=== PATIENT | male | born 1960 | race African-American/Black ===

== ENCOUNTER → 2016-10-03 | Outpatient (CLI) | payer OTHER ==
[2016-10-03 12:41] LABS: CH 29.5; CHCM 33.4; HCT 47.7 % (39.0-53.0); HDW 2.56; HGB 15.2 gm/dL (13.0-17.5); MCH 28.2 pg (25.0-35.0); MCHC 31.9 g/dL (31.0-37.0); MCV 88.7 fL (80.0-100.0); Mean Platelet Volume 7.5; RBC 5.38 m/uL (4.30-5.90); RDW 13.7 % (11.5-15.5); WBC 4.7 k/uL (3.8-10.6)
[2016-10-03 12:56] LABS: ALT 43 U/L (21-72); AST 28 U/L (17-59); Alkaline Phosphatase 94 U/L (38-126); Anion Gap 10 mmol/L; Blood Urea Nitrogen 18 mg/dL (9-20); Carbon Dioxide 25 mmol/L (22-30); Chloride 106 mmol/L (98-107); Cholesterol 235 mg/dL (<200); Glucose 97 mg/dL (74-99); HDL Cholesterol 58 mg/dL (40-60); Non-African American GFR(MDRD) >60 (>60 ml/min/1.73 sqM); Potassium 4.4 mmol/L (3.5-5.1); Sodium 141 mmol/L (137-145); Total Bilirubin 0.9 mg/dL (0.2-1.3); Total Protein 7.9 g/dL (6.3-8.2); Triglycerides 101 mg/dL (<150)
== END | disposition home or self-care (01) ==
LOC: LABWHC1 12:12
PROVIDERS: ATTEND Internal Medicine
DX: Z00.00 Encounter for general adult medical examination without abnormal findings (principal); E78.2 Mixed hyperlipidemia; E83.52 Hypercalcemia; J44.9 Chronic obstructive pulmonary disease, unspecified; N40.0 Benign prostatic hyperplasia without lower urinary tract symptoms
CPT/HCPCS: 36415; 80053; 80061; 84153; 84439; 84443; 85027

== ENCOUNTER → 2016-10-18 | Outpatient (CLI) | payer OTHER ==
--- NOTE | 2016-10-18 11:02 | XR ---
EXAMINATION TYPE: XR chest 2V DATE OF EXAM: 10/18/2016 COMPARISON: 06/18/2015 TECHNIQUE: PA and lateral views submitted. HISTORY: Chest pain FINDINGS: The lungs are clear and there is no pneumothorax, pleural effusion, or focal pneumonia. Arthropathy shoulders. Biapical no overt failure hypertrophic change of the spine. IMPRESSION: 1. No acute process.
== END | disposition home or self-care (01) ==
LOC: RADXRMAIN 10:39
PROVIDERS: ATTEND Internal Medicine
DX: Z00.00 Encounter for general adult medical examination without abnormal findings (principal); N40.0 Benign prostatic hyperplasia without lower urinary tract symptoms; E78.2 Mixed hyperlipidemia; J44.9 Chronic obstructive pulmonary disease, unspecified
CPT/HCPCS: 71020

== ENCOUNTER → 2017-09-20 | Outpatient (CLI) | payer OTHER ==
[2017-09-20 11:25] LABS: HCT 47.7 % (39.0-53.0); HGB 15.8 gm/dL (13.0-17.5); MCHC 33.2 g/dL (31.0-37.0); MCV 87.4 fL (80.0-100.0); Mean Platelet Volume 7.8; Platelet Count 235 k/uL (150-450); RBC 5.45 m/uL (4.30-5.90); RDW 13.8 % (11.5-15.5); WBC 4.5 k/uL (3.8-10.6)
[2017-09-20 11:46] LABS: Albumin 4.6 g/dL (3.5-5.0); Calcium 10.5 mg/dL (8.4-10.2); Potassium 4.4 mmol/L (3.5-5.1); Total Bilirubin 0.6 mg/dL (0.2-1.3); Total Protein 7.3 g/dL (6.3-8.2)
[2017-09-20 12:02] LABS: T4, Free (Free Thyroxine) 0.8 ng/dL (0.78-2.19)
== END | disposition home or self-care (01) ==
LOC: LABWHC1 10:48
PROVIDERS: ATTEND Internal Medicine
DX: I11.9 Hypertensive heart disease without heart failure (principal); J44.9 Chronic obstructive pulmonary disease, unspecified; E78.2 Mixed hyperlipidemia; E21.3 Hyperparathyroidism, unspecified; K21.0 Gastro-esophageal reflux disease with esophagitis; Z77.011 Contact with and (suspected) exposure to lead
CPT/HCPCS: 36415; 80053; 80061; 83655; 84439; 84443; 85027

== ENCOUNTER → 2017-09-20 | Outpatient (CLI) | payer OTHER | END | disposition home or self-care (01) | LOC: LABWHC1 10:30 | PROVIDERS: ATTEND Internal Medicine | DX: E78.2 Mixed hyperlipidemia (principal); E21.3 Hyperparathyroidism, unspecified; K26.0 Acute duodenal ulcer with hemorrhage; I11.9 Hypertensive heart disease without heart failure; J44.9 Chronic obstructive pulmonary disease, unspecified | CPT/HCPCS: 36415; 82272 ==

== ENCOUNTER 2018-02-05 09:22 | Day surgery (SDC) | payer OTHER ==
[2018-02-01 11:26] VITALS: BMI 31.5
--- NOTE | 2018-02-04 12:00 | P.GSHP ---
History of Present Illness H&P Date: 02/05/18 CHIEF COMPLAINT: Colon screen HISTORY OF PRESENT ILLNESS: The patient is a 57-year-old male who presents for colon screen. Lower endoscopy was offered for further evaluation and management. PAST MEDICAL HISTORY: Please see list. PAST SURGICAL HISTORY: Please see list. MEDICATIONS: Please see list. ALLERGIES: Please see list. SOCIAL HISTORY: No illicit drug use FAMILY HISTORY: No reports of Crohn disease or ulcerative colitis. REVIEW OF ORGAN SYSTEMS: CONSTITUTIONAL: No reports of fevers or chills. PHYSICAL EXAM: VITAL SIGNS: Stable GENERAL: Well-developed pleasant in no acute distress. HEENT: No scleral icterus. Extraocular movements grossly intact. Moist buccal mucosa. NECK: Supple without lymphadenopathy. CHEST: Unlabored respirations. Equal bilateral excursions. CARDIOVASCULAR: Regular rate and rhythm. Distal 2+ pulses. ABDOMEN: Soft, nontender, nondistended. MUSCULOSKELETAL: No clubbing, cyanosis, or edema. ASSESSMENT: 1. Colon screen. PLAN: 1. Recommend proceeding with a lower endoscopy Past Medical History Past Medical History: Hyperlipidemia, Hypertension Additional Past Medical History / Comment(s): past hx colon polyps, back pain History of Any Multi-Drug Resistant Organisms: None Reported Past Surgical History: Heart Catheterization Additional Past Surgical History / Comment(s): surg. for perforated ulcer Past Anesthesia/Blood Transfusion Reactions: No Reported Reaction Smoking Status: Current some day smoker - Past Family History Mother Family Medical History: No Reported History Brother(s) Family Medical History: No Reported History Medications and Allergies Home Medications Medication Instructions Recorded Confirmed Type Aspirin 81 mg PO DAILY 09/25/13 02/01/18 History QUEtiapine FUMARATE [SEROquel] 300 mg PO HS 09/30/13 02/01/18 History ALPRAZolam [Xanax] 1 mg PO Q8HR 06/18/15 02/01/18 History Enalapril [Vasotec] 20 mg PO QAM 06/18/15 02/01/18 History Simvastatin [Zocor] 20 mg PO HS 06/18/15 02/01/18 History Atenolol [Tenormin] 12.5 mg PO QAM 02/01/18 02/01/18 History Allergies Allergy/AdvReac Type Severity Reaction Status Date / Time peanut Allergy Rash/Hives Verified 02/01/18 11:20 shellfish derived Allergy Rash/Hives Verified 02/01/18 11:20
[~2018-02-05 09:22] MED LIST: LACTATED RINGERS 1,000 ML IV SCH
[2018-02-05 09:39] VITALS: TEMP 98.2
[2018-02-05] MEDS ORDERED: LIDOCAINE 1% 20 ML VIAL (10MG/ML) FOR IV START INTRADERMA ONE (09:49)
[2018-02-05] MEDS ORDERED: LIDOCAINE 1% INJ 10MG/ML (20 ML MDV) ONE (10:14)
[2018-02-05] MEDS ORDERED: PROPOFOL 10 MG/ML 20 ML VIAL IV ONE (10:14)
--- NOTE | 2018-02-05 10:56 | P.PCN ---
Date of Procedure: 02/05/18 Description of Procedure: PREOPERATIVE DIAGNOSIS: History of colon polyps POSTOPERATIVE DIAGNOSIS: Colonoscopy screening, first Personal history of colon polyps. Multiple tubular adenomas throughout the colon. Sigmoid diverticulitis Sigmoid colon polyps OPERATION: Colonoscopy to the ileocecal valve and appendiceal orifice. Colonoscopy with multiple hot snare polypectomies SURGEON: Myrna Clinton MD. ANESTHESIA: MAC. INDICATIONS: The patient is a 57-year-old male with history of multiple colon polyps. Last colonoscopy 4 years ago. Benefits and risks were described and informed consent was obtained. DESCRIPTION OF PROCEDURE: The patient had undergone Gatorade, MiraLAX and Dulcolax prep. He had been brought into the operating room and laid in the left lateral decubitus position. After adequate intravenous sedation, the rectum was examined with 2% lidocaine jelly. No external hemorrhoids were encountered. The prostate was smooth and without abnormality. The rectal tone was within normal limits. No lesions were palpated in the rectal vault. An Olympus colonoscope was advanced until the ileocecal valve and appendiceal orifice were clearly viewed. The prep was fair with visualization of the mucosal folds. The scope was removed with visualization of each mucosal fold. Highly redundant sigmoid colon was found. Scattered diverticulosis with recent diverticulitis was encountered. Multiple colonic polyps were found of the sigmoid colon. Focal colitis was found of the sigmoid colon. Retroflexion of the scope demonstrated grade 1 internal hemorrhoids without active bleeding or inflammation. The colon was desufflated. The patient had tolerated the procedure well. Withdrawal time was over 6 minutes. FINDINGS: Internal hemorrhoids, grade 1 No external hemorrhoids. No arteriovenous malformations. Active sigmoid diverticulitis, mild Multiple tubular adenoma sigmoid colon with snare polypectomy, 3 of 4 mm size. Pandiverticulosis RECOMMENDATIONS: Given severity of tubular adenomas, recommend repeat colonoscopy 1 year, 2019 Plan - Discharge Summary New Discharge Prescriptions: New metroNIDAZOLE [Flagyl] 500 mg PO BID #14 tab No Action Aspirin 81 mg PO DAILY QUEtiapine FUMARATE [SEROquel] 300 mg PO HS Simvastatin [Zocor] 20 mg PO HS ALPRAZolam [Xanax] 1 mg PO Q8HR Enalapril [Vasotec] 20 mg PO QAM Atenolol [Tenormin] 12.5 mg PO QAM Discharge Medication List Aspirin 81 mg PO DAILY 09/25/13 [History] QUEtiapine FUMARATE [SEROquel] 300 mg PO HS 09/30/13 [History] ALPRAZolam [Xanax] 1 mg PO Q8HR 06/18/15 [History] Enalapril [Vasotec] 20 mg PO QAM 06/18/15 [History] Simvastatin [Zocor] 20 mg PO HS 06/18/15 [History] Atenolol [Tenormin] 12.5 mg PO QAM 02/01/18 [History] metroNIDAZOLE [Flagyl] 500 mg PO BID #14 tab 02/05/18 [Rx] Follow up Appointment(s)/Referral(s): Myrna Clinton MD [STAFF PHYSICIAN] - 02/27/18 Patient Instructions/Handouts: Colorectal Polyps (DC), Diverticulitis (DC), Diverticulitis Diet (DC) Discharge Disposition: HOME SELF-CARE
[2018-02-05 11:31] VITALS: BP 156/84; PULSE 82; RESP 20
== END 2018-02-05 11:49 | disposition home or self-care (01) ==
LOC: ORWHC2ENDO 09:22
PROVIDERS: ATTEND Surgery Plastic and Reconstructive Surgery
DX: Z12.11 Encounter for screening for malignant neoplasm of colon (principal); K63.5 Polyp of colon; K57.30 Diverticulosis of large intestine without perforation or abscess without bleeding; K57.32 Diverticulitis of large intestine without perforation or abscess without bleeding; Q43.8 Other specified congenital malformations of intestine; K52.9 Noninfective gastroenteritis and colitis, unspecified; K64.0 First degree hemorrhoids; Z86.010 Personal history of colon polyps; E78.5 Hyperlipidemia, unspecified; I10 Essential (primary) hypertension; M54.9 Dorsalgia, unspecified; F41.9 Anxiety disorder, unspecified; F32.9 Major depressive disorder, single episode, unspecified; F17.210 Nicotine dependence, cigarettes, uncomplicated; Z79.82 Long term (current) use of aspirin; Z79.899 Other long term (current) drug therapy; Z91.010 Allergy to peanuts; Z91.013 Allergy to seafood
CPT/HCPCS: 88305; 45385; J2001; J2704

== ENCOUNTER → 2018-06-26 | Outpatient (CLI) | payer OTHER ==
--- NOTE | 2018-06-27 07:29 | XR ---
EXAMINATION TYPE: XR Hip Complete LT DATE OF EXAM: 06/26/2018 COMPARISON: NONE HISTORY: Pain TECHNIQUE: 2 views submitted FINDINGS: Severe narrowing of the joint space. There is also mixed lucency and sclerosis involving the femoral head. Be associated with osteonecrosis. Correlate clinically. IMPRESSION: 1. Severe arthropathy. Findings could been the basis of osteonecrosis MRI recommended.
== END | disposition home or self-care (01) ==
LOC: RADXRMAIN 16:07
PROVIDERS: ATTEND Internal Medicine
DX: M12.852 Other specific arthropathies, not elsewhere classified, left hip (principal)
CPT/HCPCS: 73502

== ENCOUNTER → 2018-07-03 | Outpatient (CLI) | payer OTHER ==
[2018-07-03 17:03] LABS: HGB 15.5 gm/dL (13.0-17.5); MCH 29.2 pg (25.0-35.0); MCHC 32.3 g/dL (31.0-37.0); MCV 90.3 fL (80.0-100.0); Mean Platelet Volume 7.8; Platelet Count 242 k/uL (150-450); RBC 5.31 m/uL (4.30-5.90); RDW 13.5 % (11.5-15.5); WBC 5.2 k/uL (3.8-10.6)
[2018-07-04 01:25] LABS: T4, Free (Free Thyroxine) 0.9 ng/dL (0.80-1.80)
[2018-07-04 01:58] LABS: Albumin/Globulin Ratio 2.17 (1.60-3.17); Anion Gap 7.2 mmol/L (4.00-12.00); Calcium 10.7 mg/dL (8.7-10.3); Carbon Dioxide 25.8 mmol/L (21.6-31.8); Globulin 2.3 g/dL (1.6-3.3); Potassium 4.7 mmol/L (3.5-5.5); Total Bilirubin 0.6 mg/dL (0.3-1.2); Total Protein 7.3 g/dL (6.2-8.2)
[2018-07-04 01:59] LABS: LDL Cholesterol,Calculated 125.8 mg/dL (0.0-131.0); VLDL Calculation 20.2 mg/dL (5.00-40.00)
== END | disposition home or self-care (01) ==
LOC: LABWHC1 16:16
PROVIDERS: ATTEND Internal Medicine
DX: E78.2 Mixed hyperlipidemia (principal); I11.9 Hypertensive heart disease without heart failure; E21.3 Hyperparathyroidism, unspecified; N40.0 Benign prostatic hyperplasia without lower urinary tract symptoms
CPT/HCPCS: 36415; 80053; 80061; 83970; 84153; 84439; 84443; 85027

== ENCOUNTER → 2018-07-09 | Outpatient (CLI) | payer OTHER ==
--- NOTE | 2018-07-09 19:56 | MR ---
EXAMINATION TYPE: MR hip LT wo con DATE OF EXAM: 07/09/2018 COMPARISON: Left hip x-ray June 26, 2018. HISTORY: severe arthropathy, osteonecrosis per order. Standard multiplanar, multisequence MRI departmental protocol Multiplanar, multisequence images of the pelvis focusing on left hip were acquired. FINDINGS: As suspected on x-ray there is fragmentation through the anterior superior aspect of the fe moral head with minimal step-off but 2.5 cm fracture fragment identified transversely coronal image 7 . There is heterogeneity with edema extending through the femoral head and neck as well as in the parth tabulum with subchondral cystic change superiorly. Moderate to advanced axial joint space narrowing i s seen. There is moderate axial joint space loss in the right hip. Avascular necrosis is also present with se rpiginous low T1 signal involving the superior aspect of the femoral head. No ossific fragmentation o r collapse is seen. Tiny symmetric bilateral hip joint effusions are seen. Muscle bulk bilateral thighs is symmetric and felt within normal limits. No suspicious groin adenopathy or hernia is seen. Visualized portion of bladder is within normal limits. Prostate gland is unremarkable. No suspicious bowel dilatation is seen. No concerning pelvic fluid collection is noted. IMPRESSION: Confirmation of advanced left hip arthropathy and avascular necrosis with early ossific collapse iden tified. Avascular necrosis and degenerative change also affects the right hip to a lesser degree.
== END | disposition home or self-care (01) ==
LOC: RADMRIMAIN 17:41
PROVIDERS: ATTEND Internal Medicine
DX: M16.12 Unilateral primary osteoarthritis, left hip (principal); M87.88 Other osteonecrosis, other site

== ENCOUNTER → 2018-08-29 | Outpatient (CLI) | payer OTHER | LOC: LABWHC1 17:25 | PROVIDERS: ATTEND Otolaryngology Sleep Medicine | DX: Z01.812 Encounter for preprocedural laboratory examination (principal) | CPT/HCPCS: 36415; 82565; 84520 ==

== ENCOUNTER → 2018-09-04 | Outpatient (CLI) | payer OTHER ==
--- NOTE | 2018-09-05 08:31 | CT ---
EXAMINATION TYPE: CT soft tissue neck wo/w con DATE OF EXAM: 09/04/2018 COMPARISON: 03/15/2012 HISTORY: Right side lump under tongue CT DLP: 1117 mGycm CONTRAST: CT scan of the neck is performed without and with IV Contrast, patient injected with 100 mL of Isovue 300. Contrast enhanced CT of the neck was performed from the skull base through the lung apices. AIRWAY: The supraglottic, glottic, and subglottic portions of the airway appear patent and free of mass. SALIVARY GLANDS: At the proximal right sided Brooklyn's duct there is a calcification noted measuring 1.5 cm x 0.7 cm x 1.3 cm. This is compatible with sialolithiasis. There is mild fullness of the right -sided submandibular gland relative to its left-sided counterpart. No definite active inflammatory ch tray identified. Parotid lobes are symmetric bilaterally. No intraglandular lesions seen. THYROID GLAND: No nodules or masses seen. LYMPH NODES: No adenopathy seen greater than 1cm. LUNG APICES: No nodule or mass is seen. OTHER: Vascular structures are patent. No significant degenerative change of the cervical spine. N o abscess seen. Stable midline maxillary dentigerous cyst. IMPRESSION: 1.At the proximal right sided Newton's duct there is a calcification noted measuring 1.5 cm x 0.7 cm x 1.3 cm. This is compatible with sialolithiasis.
== END | disposition home or self-care (01) ==
LOC: RADCTMAIN 17:17
PROVIDERS: ATTEND Otolaryngology Plastic Surgery within the Head & Neck
DX: K11.8 Other diseases of salivary glands (principal); K11.5 Sialolithiasis
CPT/HCPCS: 70492; Q9967

== ENCOUNTER → 2018-09-13 | Outpatient (CLI) | payer OTHER ==
--- NOTE | 2018-09-13 13:04 | XR ---
EXAMINATION TYPE: XR chest 2V DATE OF EXAM: 09/13/2018 COMPARISON: 10/18/2016 TECHNIQUE: PA and lateral views submitted. HISTORY: Preop chest x-ray FINDINGS: The lungs are clear and there is no pneumothorax, pleural effusion, or focal pneumonia. Arthropathy of the shoulders. Biapical pleural thickening. No overt failure. Hypertrophic and degenerative reyes e of the spine. IMPRESSION: 1. No acute process.
[2018-09-13 13:05] LABS: HCT 47.1 % (39.0-53.0); HGB 15.4 gm/dL (13.0-17.5); MCH 28.9 pg (25.0-35.0); MCHC 32.7 g/dL (31.0-37.0); MCV 88.5 fL (80.0-100.0); Mean Platelet Volume 7.8; Platelet Count 251 k/uL (150-450); RBC 5.32 m/uL (4.30-5.90); RDW 14.4 % (11.5-15.5); WBC 5.1 k/uL (3.8-10.6)
[2018-09-13 13:07] LABS: Partial Thromboplastin Time 26.2 sec (22.0-30.0); Prothrombin Time 10.9 sec (9.0-12.0)
[2018-09-13 13:20] LABS: Potassium 4.8 mmol/L (3.5-5.1)
[2018-09-13 13:29] LABS: Appearance,Urine Clear (Clear); Bilirubin,Urine Negative (Negative); Blood,Urine Negative (Negative); Color,Urine Yellow; Glucose,Urine (UA) Negative (Negative); Ketones,Urine Negative (Negative); Leukocyte Esterase,Urine Negative (Negative); Nitrite,Urine Negative (Negative); PH, Urine 6.5 (5.0-8.0); Protein,Urine Trace (Negative); Urobilinogen,Urine <2.0 mg/dL (<2.0)
== END | disposition home or self-care (01) ==
LOC: LABWHC1 11:48
PROVIDERS: ATTEND Internal Medicine
DX: Z01.818 Encounter for other preprocedural examination (principal); I11.9 Hypertensive heart disease without heart failure; J44.9 Chronic obstructive pulmonary disease, unspecified; D68.9 Coagulation defect, unspecified; Z01.812 Encounter for preprocedural laboratory examination
CPT/HCPCS: 36415; 71046; 80048; 81003; 85027; 85610; 85730; 93005

== ENCOUNTER → 2018-09-20 | Outpatient (CLI) | payer OTHER | END | disposition home or self-care (01) | LOC: LABPAT 14:07 | PROVIDERS: ATTEND Orthopaedic Surgery | DX: Z01.812 Encounter for preprocedural laboratory examination (principal); M16.12 Unilateral primary osteoarthritis, left hip | CPT/HCPCS: 87070 ==

== ENCOUNTER 2018-10-30 11:00 | Inpatient (IN) | payer OTHER ==
[2019-01-01 09:15] VITALS: BMI 31.1
[2019-01-08] MEDS ORDERED: TRANEXAMIC ACID 1,000 MG in SODIUM CHLORIDE 0.9% 100 ML IVPB ONE ×4 (05:00)
[2019-01-08] MEDS ORDERED: ACETAMINOPHEN TAB 500 MG TAB PO ONE (05:00)
[2019-01-08] MEDS ORDERED: MELOXICAM 7.5 MG TAB PO ONE (05:00)
[2019-01-08] MEDS ORDERED: LACTATED RINGERS 1,000 ML IV SCH (05:39)
[2019-01-08] MEDS ORDERED: HYDROmorphone 0.5 MG/0.5 ML SYRINGE IVP PRN ×3 (05:39→09:07)
[2019-01-08] MEDS ORDERED: LIDOCAINE 1% 20 ML VIAL (10MG/ML) FOR IV START INTRADERMA PRN (05:39)
[2019-01-08] MEDS ORDERED: ONDANSETRON 4 MG/2 ML VIAL IVP ONE (05:39)
[2019-01-08] MEDS ORDERED: ROPIVACAINE 246.25 MG, EPINEPHrine 0.5 MG, KETOROLAC 30 MG, cloNIDine HCL/PF 80 MCG, WA... MISCELLANE ONE ×5 (06:02)
[2019-01-08] MEDS ORDERED: DEXAMETHASONE SOD PHOSPHATE 10 MG/ML 1 ML VIAL IV ONE (08:03)
[2019-01-08] MEDS ORDERED: PROPOFOL 10 MG/ML 20 ML VIAL IV ONE (08:34)
[2019-01-08] MEDS ORDERED: SODIUM CHLORIDE 0.9% IRRIG 1,000 ML BTL IRRIGATION ONE (08:34)
[2019-01-08] MEDS ORDERED: MIDAZOLAM 2 MG/2 ML VIAL ONE (08:34)
[2019-01-08] MEDS ORDERED: HEPARIN SODIUM,PORCINE 10,000 UNIT/ML 1 ML VIAL ONE (08:34)
[2019-01-08] MEDS ORDERED: ePHEDrine SULFATE/0.9% NACL/PF 50 MG/5 ML SYRINGE IV ONE (08:34)
[2019-01-08] MEDS ORDERED: SODIUM CHLORIDE 0.9% 100 ML BAG ONE (08:34)
[2019-01-08] MEDS ORDERED: TRANEXAMIC ACID 1,000 MG/10 ML VIAL ONE (08:34)
[2019-01-08] MEDS ORDERED: PHENYLEPHRINE-0.9% NACL SYG 1 MG/10 ML SYRINGE ONE (08:34)
[2019-01-08] MEDS ORDERED: hydrOXYzine PAMOATE 25 MG CAP PO PRN (09:07)
[2019-01-08] MEDS ORDERED: ONDANSETRON 4 MG/2 ML VIAL IVP PRN (09:07)
[2019-01-08] MEDS ORDERED: NALOXONE 0.4 MG/ML 1 ML VIAL IV PRN (09:07)
[2019-01-08] MEDS ORDERED: HYDROmorphone 1 MG/ML 1 ML SYRINGE IVP PRN (09:07)
[2019-01-08] MEDS ORDERED: HYDROcodone/APAP 5-325MG 1 EACH TAB PO PRN (09:07)
[2019-01-08] MEDS ORDERED: MAGNESIUM HYDROXIDE 2,400 MG/10 ML CUP PO PRN (09:07)
[2019-01-08] MEDS ORDERED: ceFAZolin 3,000 MG in SODIUM CHLORIDE 0.9% IRRIGATIO 3,000 ML IRRIGATION ONE (09:26)
[2019-01-08] MEDS ORDERED: LACTATED RINGERS 1,000 ML IV ONE ×2 (09:30)
--- NOTE | 2019-01-08 10:19 | P.OP ---
Date of Procedure: 01/08/19 Preoperative Diagnosis: Severe osteoarthritis left hip Postoperative Diagnosis: Severe osteoarthritis left hip Procedure(s) Performed: Left total hip arthroplasty with a direct anterior approach Implants: Burrell and nephew Polarstem size 3 standard Burrell [employer] Nephew R3, 3 hole acetabular shell, 52 mm Burrell [employer] Nephew reflection 6.5 mm cancellus screw, 20 mm 2 Burrell [employer] Nephew R3, XLPE 20 acetabular liner Burrell [employer] Nephew Oxinium femoral head 36 m, +0 All components were press-fit. The articulation is Oxinium on polyethylene. Anesthesia: spinal Surgeon: Cole Nance Mail Service Coordinator #1: Rula Johnson Estimated Blood Loss (ml): 150 Pathology: other (Femoral head) Condition: stable Disposition: PACU Indications for Procedure: After failure of conservative treatment we discussed the surgical and nonsurgical treatment options at length. Patient wishes to proceed with a total hip arthroplasty with a direct anterior approach. Complications specific to this procedure were discussed at length, including but not limited to infection, leg length discrepancy, dislocation, and nerve injury. Patient is aware of all these complications and informed consent was obtained Operative Findings: The operative findings are consistent with severe osteoarthritis of the left hip Description of Procedure: Patient was seen and evaluated in the preoperative area, consent was reviewed, and the surgical site was marked with a skin marker. Patient was then brought to the operating room and given prophylactic antibiotics intravenously. 1 g of Tranexamic acid was also given. A spinal anesthetic was administered by the anesthesia department. The patient was then placed on the [place] table with the bony prominences well-padded. The hip area was then prepped and draped in usual sterile fashion. A universal timeout was then performed, which confirmed the patient's name, surgical site, ALLERGIES, and procedure being performed. Next the incision site was located at 1 cm distal and 1 cm lateral to the anterior superior iliac spine. The skin and subcutaneous tissues were sharply incised. Incision was carefully dissected down to the fascia overlying the tensor fascia david muscle. This fascia was then incised in line with the incision. Next, using blunt finger dissection, the tensor fascia david muscle was dissected off its investing fascia. The muscle was then carefully retracted laterally with a cobra retractor over the lateral neck of the femur. Next, the circumflex vessels were identified and cauterized using the AquaMantis device. The anterior hip capsule was then exposed. The capsule was then opened and an inverted T fashion. Cobra retractors were then placed intracapsularly. The proximal femur was then visualized. The femoral neck was then osteotomized appropriate level above the lesser trochanter. Small amount of traction was placed with the [place] table. A small wedge of bone was then removed from the remaining femoral head. Next, using a corkscrew femoral head was easily removed from the acetabulum. On gross visual inspection, the femoral head had complete loss of articular cartilage in multiple periarticular osteophytes. Attention was then turned to the acetabulum. the acetabulum was exposed and any remaining labrum was excised. Sequential reaming of the acetabulum was performed using fluoroscopic guidance. When the appropriate size was reached, a trial was then placed. The position and fit of the trial was checked with fluoroscopy. The trial was then removed. Then, using fluoroscopic guidance, the final implant was impacted at 20 of anteversion and 40 of abduction, and fully seated in the acetabulum. 2 screws were then placed in the acetabulum. Again fluoroscopy was used to check position of the screws. Next, the liner was then impacted, with a 20 elevated liner located in the anterior superior quadrant. Component locking was confirmed. Attention was then directed to the femur. With the aid of the [place] table, the femur was externally rotated to approximately 130, extended, and abducted under the opposite leg. A side hook was then placed under the proximal femur, and the side hook elevator was used to elevate the proximal femur. Retractors were then placed. A capsular release was performed, as well as a release of the conjoined tendon, which afforded excellent visualization of the proximal femur. Next, a box osteotome was used to lateralize the proximal femur. A hand weaver was then used to locate the femoral canal. Sequential broaching was then performed with appropriate size which afforded excellent fixation in the proximal femur. A trial was then placed with appropriate head and neck, and the hip was gently reduced with the aid of the [place] table. Fluoroscopy was then used to check position of the components, as well as to ensure equal leg lengths. The hip was then gently dislocated and the trials were then removed. Final implants were then impacted and the hip was again reduced. Final fluoroscopic x-rays confirmed that the components were in anatomic position, as well as equal leg lengths. The hip was also taken through range of motion, and found to be s table. The hip was then copiously irrigated with antibiotic solution with pulsatile lavage. The hip was then irrigated with Irrisept solution. The soft tissues were then injected with a ropivacaine solution, which consisted of 246.25 mg of ropivacaine, 0.5 mg of epinephrine, 30 mg of Toradol, 80 g of clonidine, and 48.45 mL of sterile water, for a total of 100 mL of fluid injected. A second d ose of 1 g of Tranexamic acid was also given. the fascia was then closed with 2-0 strata fix suture. The subcutaneous tissue was closed with 3-0 Vicryl. The subcuticular tissue was closed with 3-0 strata fix suture. The skin was then closed with Dermabond glue and a sterile silver dressing. The patient was then transferred to the recovery room in stable condition. The casino assistant manager ADRIEL Burnette was required due to the complexity of surgery, and the need for skilled surgical elastic knitter hand frame for positioning, draping, exposure, retraction, and closure of the wound.
--- NOTE | 2019-01-08 10:46 | FL ---
Fluoroscopy HISTORY: Anterior hip displacement 50 seconds fluoroscopy time supplied to the referring clinician. 2 intraoperative C-arm images docum ent the procedure. See dictated report from orthopedic surgery.
--- NOTE | 2019-01-08 10:49 | XR ---
Limited left hip HISTORY: Anterior hip replacement 2 intraoperative C-arm images document the procedure.
--- NOTE | 2019-01-08 11:03 | XR ---
EXAMINATION TYPE: XR Hip Limited LT DATE OF EXAM: 01/08/2019 CLINICAL HISTORY: Left hip pain and osteoarthritis. TECHNIQUE: Single AP portable view of left hip is obtained immediately postoperatively. COMPARISON: None. FINDINGS: Metallic hardware from left hip arthroplasty is seen and appears satisfactory in alignment and position. There is evidence of recent surgery with subcutaneous gas noted laterally. IMPRESSION: Metallic hardware from left hip arthroplasty is satisfactory in position.
[2019-01-08] MEDS: HYDROcodone/APAP 5-325MG 1 EACH TAB PO PRN ×2 (14:36→20:56)
[2019-01-08] MEDS: DIAZEPAM 5 MG TAB PO PRN (15:49)
[2019-01-08] MEDS ORDERED: ENALAPRILAT 1.25 MG/ML 1 ML VIAL IVP PRN (17:42)
[2019-01-08] MEDS: SODIUM CHLORIDE 0.9% 1,000 ML IV SCH ×2 (17:43→22:09)
--- NOTE | 2019-01-08 18:14 | P.CONS ---
History of Present Illness - Reason for Consult Consult date: 01/08/19 Requesting physician: Scott Morin (Requested by orthopedic surgeon Cole osorio) - Chief Complaint Left hip osteoarthritis elective surgery. - History of Present Illness Consultation for medical management. Patient with underlying history: Hyperlipidemia. Hypertension with hypertensive heart disease. Hypercholesterolemia. Advanced osteoarthritis of the left hip. Hypercalcemia. Sinus tachycardia. History of general anxiety disorder. Mr. Yohannes Johnston, -[place] male age of [age] years old, presented with history of severe advanced degenerative osteoarthritis of the left hip underwent left hip arthroplasty elective by Dr. Cole kaufman, on 01/08/2019. Past medical history: At the proximal right sided whartons on 09/04/2018, was 1.5 cm multiplied by 0.7 cm multiplied by 1.3 cm with the compatible with duct calcification Sialolithiasis which is operated upon by Trey Woods M.D. Probably associated with hyper hypercalcemia. Patient has history on 07/03/2018 was laboratory indicating that his calcium 10.7 and albumin is 5 and globulin was 2.3 normal liver enzyme normal alkaline phosphatase with the underlying normal PSA his parathyroid hormone was normal 59.7. Patient also has underlying colonoscopy by Dr. West for 1 and that was done on 02/05/2018 with the underlying impression of internal hemorrhoids grade 1 active sigmoid diverticulitis mild multiple tubular adenomas of the sigmoid colon and she is recommended patient to have recurrent colonoscopy in one year. Patient was under care of Dr. Denis Fairchild and recently become under my care. Head level in the blood was 4.3 L on 5 and he had also nuclear medicine for parathyroid with the SPECT scan was ordered by Dr. Fairchild in 12/24/2015 and that was normal and no suspicious of enlarged thyroid nodule in 11/04/2015. Patient seen for his back complain by Dr. Ramon Jorge who is a neurologist with the underlying back pain, cervicalgia, and numbness. And he was treated with ibuprofen 800 mg 1 tablet twice a day at that time. Patient age of [age] years old Patient has also MR of the kidney without contrast on 04/19/2016, and found 3 mm cortical cyst present at the upper pole of the left kidney no hydro-nephrosis, symmetric nephrograms are present, no retroperitoneal adenopathy, normal except cessation of the contrast, however toe shows normal caliber, signal drop which she the stated indicated fatty infiltration, adrenal gland gallbladder and pancreas. All normal. This is a postoperative consultation for medical management. Review of system: Neuropsychiatry stable no neuro deficit awake alert oriented 3. Cardiovascular no chest pain no anginal pain. Pulmonary no shortness of breath no cough or expectoration. GI no diarrhea or constipation no abdominal pain. Extremities no edema and positive pulses able to move his legs. Patient underwent spinal anesthesia. With the status post left hip arthroplasty. The Physical exam line Patient is conscious alert oriented 3. Head was normocephalic and atraumatic, natural teas with oropharynx normal and uvula midline. Neck was supple no JVD no thyromegaly no lymphadenopathy and normal motion. Chest clear to auscultation and percussion. Heart regular sinus rhythm. Abdomen: Soft positive bowel sounds no tenderness in the 4 quadrants no suprapubic tenderness. Extremities: Dressing on the left hip status post total hip arthroplasty. No edema and positive pulses. Neurology: No lateralizing sign no neuro deficit. Psychiatry: Underlying anxiety disorder. Assessment and plan: #1 status post left hip elective arthroplasty. #2 hypertension with hypertensive heart disease. #3 hyperlipidemia. #4 hyper calcium anemia mild. Plan: #1 change IV fluid to 0.9 normal saline at 70 mL an hour. #2 add Vasotec 1.25 mg IV push every 6 hour when necessary if blood pressure above 160 systolic. #3 increase the amlodipine to 10 mg at at bedtime. #4 repeat serum calcium, ionized calcium, magnesium, BMP. CBC has been ordered by the orthopedic. Thank you for letting me participate in the care of Mr. Sheffield will follow with you thank you Past Medical History Past Medical History: Hyperlipidemia, Hypertension Additional Past Medical History / Comment(s): past hx colon polyps, back pain History of Any Multi-Drug Resistant Organisms: None Reported Past Surgical History: Heart Catheterization Additional Past Surgical History / Comment(s): surg. for perforated ulcer Past Anesthesia/Blood Transfusion Reactions: No Reported Reaction Past Psychological History: Anxiety, Depression Smoking Status: Current every day smoker Past Alcohol Use History: Occasional Additional Past Alcohol Use History / Comment(s): started smoking at age 21- <1ppd Past Drug Use History: Marijuana Additional Drug Use History / Comment(s): uses marijuana weekly - Past Family History Mother Family Medical History: No Reported History Brother(s) Family Medical History: No Reported History Medications and Allergies Home Medications Medication Instructions Recorded Confirmed Type QUEtiapine FUMARATE [SEROquel] 300 mg PO HS 09/30/13 01/08/19 History ALPRAZolam [Xanax] 1 mg PO Q8HR 06/18/15 01/08/19 History Enalapril [Vasotec] 20 mg PO QAM 06/18/15 01/08/19 History Simvastatin [Zocor] 20 mg PO HS 06/18/15 01/08/19 History amLODIPine [Norvasc] 5 mg PO DAILY 01/01/19 01/08/19 History Allergies Allergy/AdvReac Type Severity Reaction Status Date / Time peanut Allergy Rash/Hives Verified 01/08/19 13:20 shellfish derived Allergy Rash/Hives Verified 01/08/19 13:20 Physical Exam Vitals: Vital Signs Temp Pulse Pulse Resp BP BP Pulse Ox 01/08/19 13:47 98.7 F 74 16 143/85 99 01/08/19 13:00 88 16 127/69 100 01/08/19 12:30 89 16 129/67 97 01/08/19 12:00 88 16 118/67 100 01/08/19 11:45 80 16 121/65 97 01/08/19 11:31 71 16 121/76 97 01/08/19 11:16 80 16 114/69 99 01/08/19 10:57 78 16 114/57 96 01/08/19 10:42 78 16 104/57 100 01/08/19 10:27 98.1 F 83 16 112/60 97 01/08/19 08:01 97.7 F 83 16 130/77 97 Intake and Output 01/08/19 01/08/19 01/08/19 06:59 14:59 22:59 Intake Total 1651 Output Total 150 Balance 1501 Intake: IV 1651 Output: Estimated Blood Loss 150 Other: Weight 97.522 kg
[2019-01-08] MEDS: ASPIRIN 325 MG TAB PO SCH (20:57)
[2019-01-08] MEDS ORDERED: SENNOSIDES-DOCUSATE SODIUM 1 EACH TAB PO SCH (21:00)
[2019-01-08] MEDS ORDERED: QUEtiapine 100 MG TAB PO SCH (21:00)
[2019-01-08] MEDS ORDERED: ATORVASTATIN 10 MG TAB PO SCH (21:00)
[2019-01-08] MEDS ORDERED: amLODIPine 10 MG TAB PO SCH (21:00)
[2019-01-08] MEDS ORDERED: PANTOPRAZOLE 40 MG TABLET PO STA (21:10)
[2019-01-09] MEDS: DIAZEPAM 5 MG TAB PO PRN (03:10)
[2019-01-09] MEDS: HYDROcodone/APAP 5-325MG 1 EACH TAB PO PRN (05:54)
[2019-01-09 07:09] LABS: Basophils # (A) 0.1 k/uL (0-0.2); Basophils % (A) 1 %; Eosinophils # (A) 0.1 k/uL (0-0.7); Eosinophils % (A) 1 %; HCT 37.3 % (39.0-53.0); HGB 12.3 gm/dL (13.0-17.5); Lymphocytes # (A) 1.1 k/uL (1.0-4.8); Lymphocytes % (A) 14 %; MCH 29.3 pg (25.0-35.0); MCHC 32.9 g/dL (31.0-37.0); MCV 89.1 fL (80.0-100.0); Mean Platelet Volume 7.6; Monocytes # (A) 0.7 k/uL (0-1.0); Monocytes % (A) 8 %; Neutrophils # (A) 5.7 k/uL (1.3-7.7); Neutrophils % (A) 74 %; Platelet Count 234 k/uL (150-450); RBC 4.19 m/uL (4.30-5.90); RDW 14.5 % (11.5-15.5); WBC 7.7 k/uL (3.8-10.6)
[2019-01-09 07:13] LABS: Ionized Calcium 5.5 mg/dL (4.5-5.3)
[2019-01-09 07:25] LABS: Magnesium 2.2 mg/dL (1.6-2.3); Phosphorus 3.8 mg/dL (2.5-4.5); Potassium 4.3 mmol/L (3.5-5.1)
[2019-01-09] MEDS ORDERED: PANTOPRAZOLE 40 MG TABLET PO SCH (07:30)
[2019-01-09 07:48] VITALS: BP 120/73; PULSE 102; RESP 16; TEMP 98.9
[2019-01-09] MEDS: ASPIRIN 325 MG TAB PO SCH (07:59)
[2019-01-09] MEDS ORDERED: amLODIPine 5 MG TAB PO SCH (09:00)
[2019-01-09] MEDS ORDERED: LISINOPRIL 20 MG TAB PO SCH (09:00)
[2019-01-09] MEDS ORDERED: MELOXICAM 7.5 MG TAB PO SCH (09:00)
--- NOTE | 2019-01-09 09:33 | P.DS ---
Providers Date of admission: 01/08/19 07:14 Expected date of discharge: 01/09/19 Attending physician: Cole Nance Consults: 01/08/19 09:07 Consult Physician Routine Consulting Provider: Scott Morin Consult Reason/Comments: medical management Do you want consulting provider notified?: Yes Primary care physician: Scott Morin - Discharge Diagnosis(es) (1) Osteoarthritis of left hip Current Visit: Yes Status: Acute (2) S/P total hip arthroplasty Current Visit: Yes Status: Acute Hospital Course: This is a 58-year-old male with known history of degenerative arthritis of the left hip. The patient presents for evaluation. After discussion and consideration patient elects to proceed with total hip arthroplasty. The patient is seen preoperatively by Dr. Nance and medically cleared for surgery by their primary care physician. Patient is admitted to [facility] on 01/08/2019 for total hip arthroplasty. The procedures performed without complication or sequelae. The patient is doing well postoperatively. Labs and vital signs are stable on day of discharge. On day of discharge patient's hip incision is healing well. There is minimal erythema. There is no drainage noted at this time. There is minimal soft tissue swelling to the hip and thigh. Patient has full foot and ankle motion without difficulty or pain. Calf is soft and nontender to palpation. Neurovascular status to the left lower extremity is intact. Patient is discharged home in good condition. Opioid start talking form is reviewed and signed at patient bedside. Please see med rec for accurate list of home medications. Plan - Discharge Summary Discharge Rx Participant: Yes New Discharge Prescriptions: New Aspirin 325 mg PO BID #60 tab HYDROcodone/APAP 5-325MG [[place] 5-325] 1 - 2 tab PO Q6HR PRN #56 tab PRN Reason: Pain Sennosides [Senokot] 1 tab PO BID #60 tablet No Action QUEtiapine FUMARATE [SEROquel] 300 mg PO HS Simvastatin [Zocor] 20 mg PO HS ALPRAZolam [Xanax] 1 mg PO Q8HR Enalapril [Vasotec] 20 mg PO QAM amLODIPine [Norvasc] 5 mg PO DAILY Discharge Medication List QUEtiapine FUMARATE [SEROquel] 300 mg PO HS 09/30/13 [History] ALPRAZolam [Xanax] 1 mg PO Q8HR 06/18/15 [History] Enalapril [Vasotec] 20 mg PO QAM 06/18/15 [History] Simvastatin [Zocor] 20 mg PO HS 06/18/15 [History] amLODIPine [Norvasc] 5 mg PO DAILY 01/01/19 [History] Aspirin 325 mg PO BID #60 tab 01/09/19 [Rx] HYDROcodone/APAP 5-325MG [[place] 5-325] 1 - 2 tab PO Q6HR PRN #56 tab 01/09/19 [Rx] Sennosides [Senokot] 1 tab PO BID #60 tablet 01/09/19 [Rx] Follow up Appointment(s)/Referral(s): Cole Nance DO [Doctor of Osteopathic Medicine] - 01/21/19 1:35 pm Scott Morin MD [Primary Care Provider] - 1 Week Activity/Diet/Wound Care/Special Instructions: Weightbearing as tolerated with walker. Leave dressing intact. Dressing may be removed by home care nurse or by patient in 10 days. May shower with dressing on. Recommend use of compression stockings daily for at least 2 weeks during the day to help prevent swelling and blood clots. May remove at night before sleeping. Please follow-up with [facility] in 2 weeks and call with any questions or concerns, . Discharge Disposition: HOME WITH HOME HEALTH SERVICES
== END 2019-01-09 12:51 | disposition home health service (06) | DRG 470 ==
LOC: 2ORMAIN 01-08 07:14 → 4SSUR 01-08 12:59
PROVIDERS: ADMIT Orthopaedic Surgery; ATTEND Orthopaedic Surgery
PROC: 30233N0 Transfusion of Autologous Red Blood Cells into Peripheral Vein, Percutaneous Approach (ICD-10-PCS; 2019-01-08)
PROC: 0SRB06A Replacement of Left Hip Joint with Oxidized Zirconium on Polyethylene Synthetic Substitute, Uncemented, Open Approach (ICD-10-PCS; principal; 2019-01-08 09:00)
DX: M16.12 Unilateral primary osteoarthritis, left hip (principal); M87.052 Idiopathic aseptic necrosis of left femur; E83.52 Hypercalcemia; I11.9 Hypertensive heart disease without heart failure; E78.5 Hyperlipidemia, unspecified; E78.00 Pure hypercholesterolemia, unspecified; M54.2 Cervicalgia; M54.9 Dorsalgia, unspecified; D64.9 Anemia, unspecified; K64.8 Other hemorrhoids; N28.1 Cyst of kidney, acquired; F41.1 Generalized anxiety disorder; F32.9 Major depressive disorder, single episode, unspecified; F17.210 Nicotine dependence, cigarettes, uncomplicated; Z71.6 Tobacco abuse counseling; Z79.899 Other long term (current) drug therapy; Z87.19 Personal history of other diseases of the digestive system; Z91.013 Allergy to seafood; Z86.010 Personal history of colon polyps; Z91.010 Allergy to peanuts
CPT/HCPCS: 73501; 73502; 80048; 82330; 83735; 84100; 85025; 86850; 86891; 86900; 86901; 88300

== ENCOUNTER → 2019-01-02 | Outpatient (CLI) | payer OTHER ==
[2019-01-02 13:06] LABS: Appearance,Urine Clear (Clear); Bilirubin,Urine Negative (Negative); Blood,Urine Negative (Negative); Color,Urine Yellow; Glucose,Urine (UA) Negative (Negative); Ketones,Urine Negative (Negative); Leukocyte Esterase,Urine Negative (Negative); Nitrite,Urine Negative (Negative); PH, Urine 5.5 (5.0-8.0); Protein,Urine Negative (Negative); Urobilinogen,Urine <2.0 mg/dL (<2.0)
[2019-01-02 13:11] LABS: HCT 46.8 % (39.0-53.0); HGB 15.2 gm/dL (13.0-17.5); MCH 28.9 pg (25.0-35.0); MCHC 32.5 g/dL (31.0-37.0); MCV 89.1 fL (80.0-100.0); Mean Platelet Volume 7.1; Platelet Count 245 k/uL (150-450); RBC 5.25 m/uL (4.30-5.90); RDW 13.5 % (11.5-15.5); WBC 5.3 k/uL (3.8-10.6)
[2019-01-02 13:13] LABS: Partial Thromboplastin Time 24.9 sec (22.0-30.0); Prothrombin Time 10.6 sec (9.0-12.0)
[2019-01-02 13:24] LABS: Albumin 4.5 g/dL (3.5-5.0); Potassium 4.8 mmol/L (3.5-5.1); Total Protein 7.7 g/dL (6.3-8.2)
[2019-01-02 13:25] LABS: Calcium 10.7 mg/dL (8.4-10.2); Total Bilirubin 0.5 mg/dL (0.2-1.3)
== END | disposition home or self-care (01) ==
LOC: LABPAT 11:10
PROVIDERS: ATTEND Orthopaedic Surgery
DX: Z01.812 Encounter for preprocedural laboratory examination (principal)
CPT/HCPCS: 36415; 80053; 81003; 85027; 85610; 85730; 87070

== ENCOUNTER → 2019-01-07 | Outpatient (CLI) | payer OTHER ==
[2019-01-07 16:41] LABS: Ionized Calcium 5.6 mg/dL (4.5-5.3)
[2019-01-08 00:25] LABS: Calcium 10.9 mg/dL (8.7-10.3)
== END | disposition home or self-care (01) ==
LOC: LABWHC1 15:50
PROVIDERS: ATTEND Internal Medicine
DX: E83.52 Hypercalcemia (principal)
CPT/HCPCS: 36415; 82310; 82330

== ENCOUNTER → 2019-02-06 | Outpatient (CLI) | payer OTHER ==
--- NOTE | 2019-02-06 14:02 | XR ---
EXAMINATION TYPE: XR chest 2V DATE OF EXAM: 02/06/2019 COMPARISON: NONE HISTORY: Cough TECHNIQUE: Frontal and lateral views of the chest are obtained. FINDINGS: There is no focal air space opacity, pleural effusion, or pneumothorax seen. Slight pulmo nary hyperinflation with mild flattening the diaphragms on the lateral view. The cardiac silhouette s ize is within normal limits. The osseous structures are intact. Mild multilevel degenerative change s of the spine. Mild bilateral acromioclavicular arthropathy. IMPRESSION: No acute cardiopulmonary process. There is mild hyperinflation of the lungs and flatteni ng the diaphragms on the lateral view. Finding could represent good inspiratory effort or underlying COPD. Correlate with pulmonary function tests.
[2019-02-06 14:28] LABS: Ionized Calcium 5.8 mg/dL (4.5-5.3)
[2019-02-06 19:39] LABS: African American GFR (CKD) 84.1 (60.0-200.0); Anion Gap 7.6 mmol/L (4.00-12.00); BUN/Creat Ratio 17.27 Ratio (12.00-20.00); Calcium 10.7 mg/dL (8.7-10.3); Carbon Dioxide 22.4 mmol/L (21.6-31.8); Potassium 4.5 mmol/L (3.5-5.5)
== END | disposition home or self-care (01) ==
LOC: LABWHC1 13:35
PROVIDERS: ATTEND Internal Medicine
DX: J98.4 Other disorders of lung (principal); E83.52 Hypercalcemia
CPT/HCPCS: 36415; 71046; 80048; 82164; 82306; 82330; 83970

== ENCOUNTER → 2019-05-20 | Outpatient (CLI) | payer OTHER ==
--- NOTE | 2019-05-20 13:15 | XR ---
EXAMINATION TYPE: XR lumbosacral spine min 4V DATE OF EXAM: 05/20/2019 CLINICAL HISTORY: pain COMPARISON: NONE TECHNIQUE: Frontal, lateral, and oblique images of the lumbar spine are obtained. FINDINGS: There are 5 lumbar type vertebral bodies identified. The lumbar spine shows satisfactory alignment without evidence of acute fracture or dislocation. Vertebral body heights are within normal limits. Moderate degenerative disc space narrowing at L5-S1 with ventral and dorsal spondylosis. T he overlying soft tissue appears unremarkable. IMPRESSION: No acute fracture or dislocation is seen in the lumbar spine.ICD 10 NO FRACTURE, INITIAL EVALUATION
--- NOTE | 2019-05-20 13:17 | XR ---
EXAMINATION TYPE: XR thoracic spine complete DATE OF EXAM: 05/20/2019 CLINICAL HISTORY: pain TECHNIQUE: Frontal, lateral, and swimmer's view of thoracic spine are obtained. COMPARISON: None. FINDINGS: Thoracic spine show satisfactory alignment without evidence of acute fracture or dislocatio n. Vertebral body heights are preserved. Mild degenerative disc space narrowing seen throughout the thoracic spine. Visualized ribs are unremarkable. IMPRESSION: No acute fracture or dislocation is seen in the thoracic spine. ICD 10 NO FRACTURE, INIT IAL EVALUATION
[2019-05-20 13:47] LABS: Ionized Calcium 5.6 mg/dL (4.5-5.3)
[2019-05-20 21:49] LABS: African American GFR (CKD) 75.2 (60.0-200.0); Anion Gap 5.9 mmol/L (4.00-12.00); BUN/Creat Ratio 13.33 Ratio (12.00-20.00); Calcium 10.2 mg/dL (8.7-10.3); Carbon Dioxide 25.1 mmol/L (21.6-31.8); Magnesium 2.2 mg/dL (1.5-2.4); Non-African American GFR(CKD) 64.9 (60.0-200.0); Phosphorus 2.8 mg/dL (2.4-5.1); Potassium 4.3 mmol/L (3.5-5.5)
== END | disposition home or self-care (01) ==
LOC: LABWHC1 12:42
PROVIDERS: ATTEND Internal Medicine
DX: M51.26 Other intervertebral disc displacement, lumbar region (principal); E83.52 Hypercalcemia; Z87.39 Personal history of other diseases of the musculoskeletal system and connective tissue
CPT/HCPCS: 36415; 72072; 72110; 80048; 82330; 83735; 83970; 84100

== ENCOUNTER 2019-10-02 22:50 | Inpatient (IN) | payer OTHER ==
[2019-10-02] MEDS ORDERED: MORPHINE SULFATE 4 MG/ML SYRINGE IV STA (23:13)
[2019-10-02] MEDS ORDERED: ONDANSETRON 4 MG/2 ML VIAL IVP STA (23:13)
[2019-10-02] MEDS ORDERED: SODIUM CHLORIDE 0.9% 1,000 ML IV STA (23:13)
--- NOTE | 2019-10-02 23:20 | ED ---
Abdominal Pain HPI - General Source: patient Mode of arrival: ambulatory Limitations: no limitations <Tory Lyles - Last Filed: 10/03/19 03:04> <Catalina Weinstein - Last Filed: 10/03/19 20:21> - General Chief Complaint: Abdominal Pain Stated Complaint: Abdominal Pain Time Seen by Provider: 10/02/19 23:04 - History of Present Illness Initial Comments: Patient is a 59-year-old male presenting to the emergency Department with complaints of abdominal pain for 3 days. Patient states he has not had a bowel movement in 3 days and feels like his belly is bigger than normal. He states he has also been having nausea and vomiting when he tries to eat food. He's been trying to eat small amounts and also just liquids however still having vomiting episodes. Patient states he is also not able to cats gas the last 3 days. He does admit to history of abdominal surgery secondary to ulcer perforation. No other surgeries. He states the pain has become more intense over the past 3 days, rates as sharp, severe, 6/10. Patient denies any fever, chills, chest pain, shortness of breath, urinary complaints. He has no further complaints at this time. Upon arrival to the ER, patient's tachycardia at 122, rest of vitals normal. (Tory Lyles) - Related Data Home Medications Medication Instructions Recorded Confirmed QUEtiapine FUMARATE [SEROquel] 300 mg PO HS 09/30/13 10/03/19 Enalapril [Vasotec] 20 mg PO DAILY 06/18/15 10/03/19 Simvastatin [Zocor] 20 mg PO HS 06/18/15 10/03/19 Aspirin EC [Ecotrin Low Dose] 81 mg PO DAILY 10/03/19 10/03/19 Diclofenac Sodium [Voltaren] 75 mg PO BID 10/03/19 10/03/19 Previous Rx's Medication Instructions Recorded amLODIPine BESYLATE [Norvasc] 10 mg PO DAILY 7 Days tablet 01/09/19 Allergies Allergy/AdvReac Type Severity Reaction Status Date / Time peanut Allergy Rash/Hives Verified 10/02/19 22:56 shellfish derived Allergy Rash/Hives Verified 10/02/19 22:56 Review of Systems ROS Other: All systems not noted in ROS Statement are negative. <Tory Lyles - Last Filed: 10/03/19 03:04> ROS Other: All systems not noted in ROS Statement are negative. <Catalina Weinstein P - Last Filed: 10/03/19 20:21> ROS Statement: Those systems with pertinent positive or pertinent negative responses have been documented in the HPI. Past Medical History Past Medical History: Hyperlipidemia, Hypertension Additional Past Medical History / Comment(s): past hx colon polyps, back pain History of Any Multi-Drug Resistant Organisms: None Reported Past Surgical History: Heart Catheterization Additional Past Surgical History / Comment(s): surg. for perforated ulcer Past Anesthesia/Blood Transfusion Reactions: No Reported Reaction Past Psychological History: Anxiety, Depression Smoking Status: Never smoker Past Alcohol Use History: Occasional Past Drug Use History: Marijuana - Past Family History Mother Family Medical History: No Reported History Brother(s) Family Medical History: No Reported History <Tory Lyles - Last Filed: 10/03/19 03:04> General Exam Limitations: no limitations <Tory Lyles - Last Filed: 10/03/19 03:04> - General Exam Comments Initial Comments: GENERAL: Well-nourished and in no acute distress, but seems very uncomfortable. HEAD: Atraumatic, normocephalic. EYES: Pupils equal round and reactive to light, extraocular movements intact, sclera anicteric, conjunctiva are normal. ENT: TMs normal, nares patent, oropharynx clear without exudates. Moist mucous m embranes. NECK: Normal range of motion, supple without lymphadenopathy or JVD. LUNGS: Breath sounds clear to auscultation bilaterally and equal. No wheezes rales or rhonchi. HEART: Tachycardia rate and rhythm without murmurs, rubs or gallops. ABDOMEN: Abdomen is distended, generalized abdominal pain with palpation. Hypoactive bowel sounds. No masses appreciated. : Deferred EXTREMITIES: Normal range of motion, no pitting or edema. No clubbing or cyanosis. NEUROLOGICAL: Normal speech, normal gait. PSYCH: Normal mood, normal affect. SKIN: Warm, Dry, normal turgor, no rashes or lesions noted. (Tory Lyles) Course Vital Signs 10/02/19 10/03/19 10/03/19 22:54 02:30 03:32 Temperature 98.2 F 98.2 F Pulse Rate 122 H 88 105 H Respiratory 18 18 20 Rate Blood Pressure 116/82 105/82 141/93 O2 Sat by Pulse 97 96 100 Oximetry Medical Decision Making - Lab Data Result diagrams: 10/02/19 23:30 10/02/19 23:30 <Tory Lyles - Last Filed: 10/03/19 03:04> - Lab Data Result diagrams: 10/03/19 18:47 10/03/19 10:36 <Catalina Weinstein - Last Filed: 10/03/19 20:21> - Medical Decision Making Patient is a 59-year-old male with abdominal pain 3 days. No bowel movement or gas passage in 3 days, nausea and vomiting. Vitals are stable. Exam reveals a distended abdomen, which generalized tenderness to palpation. Hypoactive bowel sounds. Labs show elevated creatinine at 1.75, BUN is 32. Lactic acid is 2.4. Urine shows no evidence of infection. Computed tomography scan of the abdomen was obtained and shows a mechanical small bowel injection. Patient was given pain control, Zofran, fluids. We did place an NG tube. Patient will be admitted with surgery on consult. Patient is in agreement with this plan of care. Patient was accepted by Dr. Morin. Case discussed with Dr. Weinstein. (Tory Lyles) I personally saw and examined the patient. I reviewed and agree with the mid- level provider findings including all diagnostic interpretations and treatment plans as written unless otherwise stated. I spoke with patient's primary care physician Dr. Morin who agrees with the plan for admission with a consult to general surgery. Patient had a NG tube placed in the ER noted to be draining gastric contents patient reported some relief of symptoms after NG tube placement. (Catalina Weinstein) - Lab Data Lab Results 10/02/19 10/02/19 10/02/19 Range/Units 23:30 23:30 23:30 WBC 9.8 (3.8-10.6) k/uL RBC 6.18 H (4.30-5.90) m/uL Hgb 17.6 H (13.0-17.5) gm/dL Hct 54.4 H (39.0-53.0) % MCV 87.9 (80.0-100.0) fL MCH 28.5 (25.0-35.0) pg MCHC 32.5 (31.0-37.0) g/dL RDW 14.0 (11.5-15.5) % Plt Count 263 (150-450) k/uL Neutrophils % 80 % Lymphocytes % 10 % Monocytes % 7 % Eosinophils % 1 % Basophils % 0 % Neutrophils # 7.9 H (1.3-7.7) k/uL Lymphocytes # 1.0 (1.0-4.8) k/uL Monocytes # 0.7 (0-1.0) k/uL Eosinophils # 0.1 (0-0.7) k/uL Basophils # 0.0 (0-0.2) k/uL PT 11.1 (9.0-12.0) sec INR 1.1 (<1.2) APTT 23.0 (22.0-30.0) sec Sodium 139 (137-145) mmol/L Potassium 3.7 (3.5-5.1) mmol/L Chloride 93 L (98-107) mmol/L Carbon Dioxide 31 H (22-30) mmol/L Anion Gap 15 mmol/L BUN 32 H (9-20) mg/dL Creatinine 1.75 H (0.66-1.25) mg/dL Est GFR (CKD-EPI)AfAm 48 (>60 ml/min/1.73 sqM) Est GFR (CKD-EPI)NonAf 41 (>60 ml/min/1.73 sqM) Glucose 162 H (74-99) mg/dL Lactic Ac Sepsis Rflx Plasma Lactic Acid Sy (0.7-2.0) mmol/L Calcium 11.2 H (8.4-10.2) mg/dL Total Bilirubin 0.8 (0.2-1.3) mg/dL AST 30 (17-59) U/L ALT 26 (4-49) U/L Alkaline Phosphatase 108 (38-126) U/L Total Protein 8.3 H (6.3-8.2) g/dL Albumin 5.0 (3.5-5.0) g/dL Amylase 74 (30-110) U/L Lipase 205 (23-300) U/L Urine Color Urine Appearance (Clear) Urine pH (5.0-8.0) Ur Specific Schurz (1.001-1.035) Urine Protein (Negative) Urine Glucose (UA) (Negative) Urine Ketones (Negative) Urine Blood (Negative) Urine Nitrite (Negative) Urine Bilirubin (Negative) Urine Urobilinogen (<2.0) mg/dL Ur Leukocyte Esterase (Negative) Urine RBC (0-5) /hpf Urine WBC (0-5) /hpf Ur Squamous Epith Cells (0-4) /hpf Hyaline Casts (0-2) /lpf Urine Mucus (None) /hpf 10/02/19 10/03/19 10/03/19 Range/Units 23:30 00:01 00:08 WBC (3.8-10.6) k/uL RBC (4.30-5.90) m/uL Hgb (13.0-17.5) gm/dL Hct (39.0-53.0) % MCV (80.0-100.0) fL MCH (25.0-35.0) pg MCHC (31.0-37.0) g/dL RDW (11.5-15.5) % Plt Count (150-450) k/uL Neutrophils % % Lymphocytes % % Monocytes % % Eosinophils % % Basophils % % Neutrophils # (1.3-7.7) k/uL Lymphocytes # (1.0-4.8) k/uL Monocytes # (0-1.0) k/uL Eosinophils # (0-0.7) k/uL Basophils # (0-0.2) k/uL PT (9.0-12.0) sec INR (<1.2) APTT (22.0-30.0) sec Sodium (137-145) mmol/L Potassium (3.5-5.1) mmol/L Chloride (98-107) mmol/L Carbon Dioxide (22-30) mmol/L Anion Gap mmol/L BUN (9-20) mg/dL Creatinine (0.66-1.25) mg/dL Est GFR (CKD-EPI)AfAm (>60 ml/min/1.73 sqM) Est GFR (CKD-EPI)NonAf (>60 ml/min/1.73 sqM) Glucose (74-99) mg/dL Lactic Ac Sepsis Rflx Y Plasma Lactic Acid Sy 2.4 H* (0.7-2.0) mmol/L Calcium (8.4-10.2) mg/dL Total Bilirubin (0.2-1.3) mg/dL AST (17-59) U/L ALT (4-49) U/L Alkaline Phosphatase (38-126) U/L Total Protein (6.3-8.2) g/dL Albumin (3.5-5.0) g/dL Amylase (30-110) U/L Lipase (23-300) U/L Urine Color Yellow Urine Appearance Cloudy (Clear) Urine pH 7.0 (5.0-8.0) Ur Specific Sch[place]z 1.030 (1.001-1.035) Urine Protein 2+ H (Negative) Urine Glucose (UA) Negative (Negative) Urine Ketones Trace H (Negative) Urine Blood Negative (Negative) Urine Nitrite Negative (Negative) Urine Bilirubin Negative (Negative) Urine Urobilinogen 3.0 (<2.0) mg/dL Ur Leukocyte Esterase Negative (Negative) Urine RBC 1 (0-5) /hpf Urine WBC 2 (0-5) /hpf Ur Squamous Epith Cells 1 (0-4) /hpf Hyaline Casts 69 H (0-2) /lpf Urine Mucus Many H (None) /hpf // Range/Units 02:58 WBC (3.8-10.6) k/uL RBC (4.30-5.90) m/uL Hgb (13.0-17.5) gm/dL Hct (39.0-53.0) % MCV (80.0-100.0) fL MCH (25.0-35.0) pg MCHC (31.0-37.0) g/dL RDW (11.5-15.5) % Plt Count (150-450) k/uL Neutrophils % % Lymphocytes % % Monocytes % % Eosinophils % % Basophils % % Neutrophils # (1.3-7.7) k/uL Lymphocytes # (1.0-4.8) k/uL Monocytes # (0-1.0) k/uL Eosinophils # (0-0.7) k/uL Basophils # (0-0.2) k/uL PT (9.0-12.0) sec INR (<1.2) APTT (22.0-30.0) sec Sodium (137-145) mmol/L Potassium (3.5-5.1) mmol/L Chloride (98-107) mmol/L Carbon Dioxide (22-30) mmol/L Anion Gap mmol/L BUN (9-20) mg/dL Creatinine (0.66-1.25) mg/dL Est GFR (CKD-EPI)AfAm (>60 ml/min/1.73 sqM) Est GFR (CKD-EPI)NonAf (>60 ml/min/1.73 sqM) Glucose (74-99) mg/dL Lactic Ac Sepsis Rflx Plasma Lactic Acid Sy 1.6 (0.7-2.0) mmol/L Calcium (8.4-10.2) mg/dL Total Bilirubin (0.2-1.3) mg/dL AST (17-59) U/L ALT (4-49) U/L Alkaline Phosphatase (38-126) U/L Total Protein (6.3-8.2) g/dL Albumin (3.5-5.0) g/dL Amylase (30-110) U/L Lipase (23-300) U/L Urine Color Urine Appearance (Clear) Urine pH (5.0-8.0) Ur Specific Schurz (1.001-1.035) Urine Protein (Negative) Urine Glucose (UA) (Negative) Urine Ketones (Negative) Urine Blood (Negative) Urine Nitrite (Negative) Urine Bilirubin (Negative) Urine Urobilinogen (<2.0) mg/dL Ur Leukocyte Esterase (Negative) Urine RBC (0-5) /hpf Urine WBC (0-5) /hpf Ur Squamous Epith Cells (0-4) /hpf Hyaline Casts (0-2) /lpf Urine Mucus (None) /hpf Disposition Is patient prescribed a controlled substance at d/c from ED?: No Decision Date: 10/03/19 Decision Time: 02:18 <Tory Lyles - Last Filed: 10/03/19 03:04> <Catalina Weinstein - Last Filed: 10/03/19 20:21> Clinical Impression: Small bowel obstruction, Nausea & vomiting Disposition: ADMITTED IP TO THIS HOSP Condition: Good
[2019-10-02 23:44] LABS: Basophils % (A) 0 %; Eosinophils # (A) 0.1 k/uL (0-0.7); Eosinophils % (A) 1 %; HCT 54.4 % (39.0-53.0); HGB 17.6 gm/dL (13.0-17.5); Lymphocytes % (A) 10 %; MCH 28.5 pg (25.0-35.0); MCHC 32.5 g/dL (31.0-37.0); MCV 87.9 fL (80.0-100.0); Mean Platelet Volume 8.2; Monocytes # (A) 0.7 k/uL (0-1.0); Monocytes % (A) 7 %; Neutrophils # (A) 7.9 k/uL (1.3-7.7); Neutrophils % (A) 80 %; Platelet Count 263 k/uL (150-450); RBC 6.18 m/uL (4.30-5.90); WBC 9.8 k/uL (3.8-10.6)
[2019-10-02 23:53] LABS: Calcium 11.2 mg/dL (8.4-10.2); Potassium 3.7 mmol/L (3.5-5.1); Total Bilirubin 0.8 mg/dL (0.2-1.3); Total Protein 8.3 g/dL (6.3-8.2)
[2019-10-02 23:57] LABS: INR 1.1 (<1.2); Prothrombin Time 11.1 sec (9.0-12.0)
[2019-10-03] MEDS ORDERED: PANTOPRAZOLE 40 MG/10 ML VIAL IVP STA
[2019-10-03 00:25] LABS: Appearance,Urine Cloudy (Clear); Bilirubin,Urine Negative (Negative); Blood,Urine Negative (Negative); Color,Urine Yellow; Glucose,Urine (UA) Negative (Negative); Hyaline Casts,Urine 69 /lpf (0-2); Ketones,Urine Trace (Negative); Leukocyte Esterase,Urine Negative (Negative); Mucus,Urine Many /hpf; Nitrite,Urine Negative (Negative); Protein,Urine 2+ (Negative); RBC,Urine 1 /hpf (0-5); Squamous Epithelial Cell,Urine 1 /hpf (0-4); WBC,Urine 2 /hpf (0-5)
--- NOTE | 2019-10-03 02:07 | CT ---
EXAMINATION TYPE: CT abdomen pelvis w con DATE OF EXAM: 10/03/2019 COMPARISON: June 30, 2009 HISTORY: Abd. distention CT DLP: 1561.2 mGycm Automated exposure control for dose reduction was used. CONTRAST: Performed with IV Contrast, patient injected with 80 mL of Isovue 300. The lung bases are clear of consolidation. There is minimal subsegmental atelectasis. Heart size is n ormal. There is small hiatal hernia. There is no pericardial effusion. There is no pleural effusion. Liver and gallbladder appear normal. Spleen and pancreas appear normal. Bile ducts are not dilated. There is no adrenal mass. Kidneys show satisfactory contrast opacification. There is no hydronephrosi s. Appendix appears normal. Bladder distends smoothly. There is metal artifact from left hip prosthes is. There is no inguinal hernia. There is no evidence of a pelvic mass. There are multiple dilated air and fluid-filled small bowel loops in the mid abdomen. Distal ileum is not dilated. Small bowel dilated up to 3.6 cm. Transition point appears to be demonstrated anteriorl y on axial image 63 and sagittal image 60. No obstructing mass seen. There is vacuum disc at L5-S1. T here is some osteosclerosis in the L4 and T11 vertebral bodies. Osteosclerosis also present on old CT scan and could relate to Paget's disease. There is no evidence of free air. There is no ascites. There is no mesenteric edema. IMPRESSION: Dilated small bowel consistent with mechanical small bowel obstruction at the level of the distal jej unum or proximal ileum. Obstruction appears new compared to old exam.
[2019-10-03] MEDS ORDERED: NALOXONE 0.4 MG/ML 1 ML VIAL IV PRN (02:15)
[2019-10-03] MEDS ORDERED: ACETAMINOPHEN TAB 325 MG TAB PO PRN (02:15)
[2019-10-03] MEDS: SODIUM CHLORIDE 0.9% 1,000 ML IV SCH ×2 (02:46→16:58)
[2019-10-03] MEDS: MORPHINE SULFATE 4 MG/ML SYRINGE IV PRN ×3 (02:53→20:08)
--- NOTE | 2019-10-03 03:31 | XR ---
EXAMINATION TYPE: XR chest 1V DATE OF EXAM: 10/03/2019 COMPARISON: 02/06/2019 HISTORY: Cough TECHNIQUE: FINDINGS: Heart is normal. Lungs are clear of consolidation. Costophrenic angles are clear. There is minimal linear density left lung base. There is nasogastric tube in the tip is not well seen . Tip is probably in the distal esophagus. IMPRESSION: There is new mild subsegmental atelectasis at the left lung base compared to old exam. No rmal heart.
[2019-10-03] MEDS ORDERED: SODIUM CHLORIDE 0.9% 1,000 ML IV ONE (08:30)
[2019-10-03] MEDS: HYDROmorphone 1 MG/ML 1 ML SYRINGE IVP PRN ×2 (09:24→12:54)
[2019-10-03] MEDS: BENZOCAINE SPRAY 1 CAN MUCOUS MEM PRN (10:00)
[2019-10-03] MEDS ORDERED: PANTOPRAZOLE 40 MG/10 ML VIAL IVP SCH (10:15)
[2019-10-03 11:23] LABS: Basophils % (A) 0 %; Eosinophils # (A) 0.1 k/uL (0-0.7); Eosinophils % (A) 1 %; HCT 49.1 % (39.0-53.0); HGB 15.5 gm/dL (13.0-17.5); Lymphocytes # (A) 1.2 k/uL (1.0-4.8); Lymphocytes % (A) 11 %; MCH 28.3 pg (25.0-35.0); MCHC 31.5 g/dL (31.0-37.0); MCV 89.9 fL (80.0-100.0); Mean Platelet Volume 8.2; Monocytes # (A) 0.9 k/uL (0-1.0); Monocytes % (A) 8 %; Neutrophils # (A) 8.8 k/uL (1.3-7.7); Neutrophils % (A) 78 %; Platelet Count 247 k/uL (150-450); RBC 5.46 m/uL (4.30-5.90); WBC 11.2 k/uL (3.8-10.6)
--- NOTE | 2019-10-03 11:33 | P.GSCN ---
<Yessy Montes - Last Filed: 10/03/19 11:32> History of Present Illness Consult date: 10/03/19 Reason for Consult: SBO. Requesting physician: Tory Lyles History of present illness: CHIEF COMPLAINT: SBO HISTORY OF PRESENT ILLNESS: 59-year-old male who presented to the emergency room with the chief complaint of abdominal pain, abdominal distention, nausea, and vomiting. Patient reports this has been present for about 4 days. He denies passing flatus or having a bowel movement. He reports multiple episodes of nausea and vomiting during this time. He reports generalized abdominal pain and bloating this morning. NG tube placed in the ER. Approximately 400cc of drainage thus far. Patient does report he had abdominal surgery in 1990 secondary to a perforated ulcer. PAST MEDICAL HISTORY: See list. PAST SURGICAL HISTORY: See list. MEDICATIONS: See list. ALLERGIES: See list. SOCIAL HISTORY: Reports marijuana use. REVIEW OF SYSTEMS: CONSTITUTIONAL: Denies fever or chills. HEENT: Denies blurred vision, vision changes, or eye pain. Denies hemoptysis ENDOCRINE: Denies heat or cold intolerance. CARDIOVASCULAR: Denies chest pain or pressure. History of hypertension. RESPIRATORY: No shortness of breath. GASTROINTESTINAL: See HPI for pertinent findings NEURO: Denies history of seizures. PSYCH: History of anxiety and depression. Denies suicidal ideation HEMATOLOGIC: Denies bleeding disorders. LYMPHATIC: The patient denies any lumps and bumps around the neck. GENITOURINARY: Denies any blood in urine or increased urinary frequency. MUSCULOSKELETAL: Denies myalgias. Denies joint swelling. Denies decreased range of motion beyond patients baseline. SKIN: Denies pruitis. Denies rash. PHYSICAL EXAM: VITAL SIGNS: Reviewed GENERAL: Well-developed, appears to be uncomfortable. HEENT: No sclera icterus. Extraocular movements grossly intact. Moist buccal mucosa. Head is atraumatic, normocephalic. Hears conversational speech. No nasal drainage. NECK: Supple without lymphadenopathy. CHEST: Non-labored respirations and equal bilateral excursions. CARDIOVASCULAR: Regular rate with regular rhythm. Palpable 2+ radial pulses. ABDOMEN: Firm. Distended. Diffuse tenderness. NG to LIS noted. MUSCULOSKELETAL: No clubbing or cyanosis. NEUROLOGIC: No focal or lateralizing signs. Cranial nerves II through XII grossly intact. PSYCH: Appropriate affect. Alert and oriented to person, place and time. SKIN: Well perfused. Good skin turgor. LABORATORY DATA: WBC 9.8. Hemoglobin 17.6. Platelet count 263. Sodium 139. Potassium 3.7. BUN 32. Creatinine 1.75. Lactic acid 2.4. Repeat 1.6. IMAGING: CT abdomen and pelvis: Dilated small bowel consistent with mechanical small bowel obstruction at the level of the distal jejunum or proximal ileum. ASSESSMENT: 1. Abdominal pain, nausea, vomiting 2. Small bowel obstruction 3. History of perforated ulcer, 1990 PLAN: -Patient mildly tachycardic with 4 day history of vomiting, likely dehydrated. Patient received 1L bolus in ER and has IV fluids infusing at 75cc/hr. Increase IV fluids to 100cc/hr. Give additional 1L bolus -Continue NPO -Pain control. Morphine not lasting very long per patient. Change to Dilaudid 1mg Q3 hours -Continue NG to LIS. Add hurricane spray -Further recommendations pending patient course Nurse practitioner note has been reviewed by physician. Signing provider agrees with the documented findings, assessment, and plan of care. Past Medical History Past Medical History: Hyperlipidemia, Hypertension Additional Past Medical History / Comment(s): past hx colon polyps, back pain History of Any Multi-Drug Resistant Organisms: None Reported Past Surgical History: Heart Catheterization Additional Past Surgical History / Comment(s): surg. for perforated ulcer Past Anesthesia/Blood Transfusion Reactions: No Reported Reaction Past Psychological History: Anxiety, Depression Smoking Status: Never smoker Past Alcohol Use History: Occasional Additional Past Alcohol Use History / Comment(s): started smoking at age 21- <1ppd Past Drug Use History: Marijuana Additional Drug Use History / Comment(s): uses marijuana weekly - Past Family History Mother Family Medical History: No Reported History Brother(s) Family Medical History: No Reported History Medications and Allergies Home Medications Medication Instructions Recorded Confirmed Type QUEtiapine FUMARATE [SEROquel] 300 mg PO HS 09/30/13 10/03/19 History Enalapril [Vasotec] 20 mg PO DAILY 06/18/15 10/03/19 History Simvastatin [Zocor] 20 mg PO HS 06/18/15 10/03/19 History amLODIPine BESYLATE [Norvasc] 10 mg PO DAILY 7 Days tablet 01/09/19 10/03/19 Rx Aspirin EC [Ecotrin Low Dose] 81 mg PO DAILY 10/03/19 10/03/19 History Diclofenac Sodium [Voltaren] 75 mg PO BID 10/03/19 10/03/19 History Allergies Allergy/AdvReac Type Severity Reaction Status Date / Time peanut Allergy Rash/Hives Verified 10/02/19 22:56 shellfish derived Allergy Rash/Hives Verified 10/02/19 22:56 Surgical - Exam Vital Signs Temp Pulse Resp BP Pulse Ox 98.2 F 122 H 18 116/82 97 10/02/19 22:54 10/02/19 22:54 10/02/19 22:54 10/02/19 22:54 10/02/19 22:54 Results - Labs 10/03/19 10:36 10/02/19 23:30 Abnormal Lab Results - Last 24 Hours (Table) 10/02/19 10/02/19 10/02/19 Range/Units 23:30 23:30 23:30 RBC 6.18 H (4.30-5.90) m/uL Hgb 17.6 H (13.0-17.5) gm/dL Hct 54.4 H (39.0-53.0) % Neutrophils # 7.9 H (1.3-7.7) k/uL Chloride 93 L (98-107) mmol/L Carbon Dioxide 31 H (22-30) mmol/L BUN 32 H (9-20) mg/dL Creatinine 1.75 H (0.66-1.25) mg/dL Glucose 162 H (74-99) mg/dL Plasma Lactic Acid Sy 2.4 H* (0.7-2.0) mmol/L Calcium 11.2 H (8.4-10.2) mg/dL Total Protein 8.3 H (6.3-8.2) g/dL Urine Protein (Negative) Urine Ketones (Negative) Hyaline Casts (0-2) /lpf Urine Mucus (None) /hpf 10/03/19 Range/Units 00:08 RBC (4.30-5.90) m/uL Hgb (13.0-17.5) gm/dL Hct (39.0-53.0) % Neutrophils # (1.3-7.7) k/uL Chloride (98-107) mmol/L Carbon Dioxide (22-30) mmol/L BUN (9-20) mg/dL Creatinine (0.66-1.25) mg/dL Glucose (74-99) mg/dL Plasma Lactic Acid Sy (0.7-2.0) mmol/L Calcium (8.4-10.2) mg/dL Total Protein (6.3-8.2) g/dL Urine Protein 2+ H (Negative) Urine Ketones Trace H (Negative) Hyaline Casts 69 H (0-2) /lpf Urine Mucus Many H (None) /hpf Diabetes panel 10/02/19 Range/Units 23:30 Sodium 139 (137-145) mmol/L Potassium 3.7 (3.5-5.1) mmol/L Chloride 93 L (98-107) mmol/L Carbon Dioxide 31 H (22-30) mmol/L BUN 32 H (9-20) mg/dL Creatinine 1.75 H (0.66-1.25) mg/dL Glucose 162 H (74-99) mg/dL Calcium 11.2 H (8.4-10.2) mg/dL AST 30 (17-59) U/L ALT 26 (4-49) U/L Alkaline Phosphatase 108 (38-126) U/L Total Protein 8.3 H (6.3-8.2) g/dL Albumin 5.0 (3.5-5.0) g/dL Calcium panel 10/02/19 Range/Units 23:30 Calcium 11.2 H (8.4-10.2) mg/dL Albumin 5.0 (3.5-5.0) g/dL Pituitary panel 10/02/19 Range/Units 23:30 Sodium 139 (137-145) mmol/L Potassium 3.7 (3.5-5.1) mmol/L Chloride 93 L (98-107) mmol/L Carbon Dioxide 31 H (22-30) mmol/L BUN 32 H (9-20) mg/dL Creatinine 1.75 H (0.66-1.25) mg/dL Glucose 162 H (74-99) mg/dL Calcium 11.2 H (8.4-10.2) mg/dL Adrenal panel 10/02/19 Range/Units 23:30 Sodium 139 (137-145) mmol/L Potassium 3.7 (3.5-5.1) mmol/L Chloride 93 L (98-107) mmol/L Carbon Dioxide 31 H (22-30) mmol/L BUN 32 H (9-20) mg/dL Creatinine 1.75 H (0.66-1.25) mg/dL Glucose 162 H (74-99) mg/dL Calcium 11.2 H (8.4-10.2) mg/dL Total Bilirubin 0.8 (0.2-1.3) mg/dL AST 30 (17-59) U/L ALT 26 (4-49) U/L Alkaline Phosphatase 108 (38-126) U/L Total Protein 8.3 H (6.3-8.2) g/dL Albumin 5.0 (3.5-5.0) g/dL <Myrna Clinton - Last Filed: 10/04/19 09:33> History of Present Illness History of present illness: Patient seen and evaluated nurse practitioner. Additional recommendations below. HISTORY OF PRESENT ILLNESS: The patient is a 59-year-old male who reports a past history of exploratory laparotomy for perforated gastric duodenal ulcer. He had a colonoscopy by me approximately 2 years ago which at that time was unremarkable for adenomas. He did have a rectal polyp. He reports new at least 4 day history of intractable nausea and vomiting including diffuse abdominal pain and abdominal distention. He came to the hospital as his abdominal pain grew worse. I personally reviewed his CT of the abdomen and pelvis which demonstrated a transition point in the right lower quadrant. Patient does reports no passage of flatus for over 4 days. During evaluation, patient had dark drainage from his nasogastric tube consistent with blood. He reports since admission his abdominal pain has improved. PAST MEDICAL HISTORY: See list. PAST SURGICAL HISTORY: See list. MEDICATIONS: See list. ALLERGIES: See list. SOCIAL HISTORY: See list. FAMILY HISTORY: See list. REVIEW OF ORGAN SYSTEMS: CONSTITUTIONAL: No fevers or chills. EYES: Denies any trouble with vision. No glasses. HEENT: No difficulties with hearing. No nosebleeds. No difficulty swallowing. RESPIRATORY: Denies pneumonia. Denies any troubles with breathing or dyspnea on exertion. CARDIOVASCULAR: Past history of heart catheterization. GASTROINTESTINAL: Has change in bowel habits. History of colon polyps. History of gastric duodenal ulcers GENITOURINARY: Denies any blood in urine or increased urinary frequency. NEUROLOGICAL: Denies any numbness or tingling along the distal extremities. No seizure disorders or headaches. MUSCULOSKELETAL: Has back pain, stiffness or joint arthritis. SKIN: No current skin cancer. No rash. PSYCHIATRIC: Denies current depression or suicidal thoughts. ENDOCRINE: Denies current thyroid disorders. Denies any blood sugar glucose intolerance. HEME/LYMPHATIC: Denies any lumps and bumps around the neck. No recent deep venous thrombosis. ALLERGY/IMMUNOLOGY: No immunoglobulin therapy. No immune deficiencies. BREAST: Denies current breast lumps, pain or nipple discharge. PHYSICAL EXAM: VITALS: Reviewed CONSTITUTIONAL: Well developed and in no acute distress. EYES: Conjuctivae without sclera icterus. Pupils are equally round and reactive to light. Extraocular movements grossly intact. HEAD, EARS, NOSE, THROAT: Moist buccal mucosa. Head is atraumatic, normocephalic. Hears conversational speech. No nasal drainage. NECK: Supple. No JV distention. No thyroidomegaly. RESPIRATORY: Mild labor respirations and equal bilateral excursions. No gross wheezes. CARDIOVASCULAR: Tachycardic. Pulses 2+ ABDOMEN: Soft. Protuberant. Distended. Well-healed upper midline incision to umbilicus. No palpable incisional hernias. LYMPH: No neck lymphadenopathy. No axillary lymphadenopathy. MUSCULOSKELETAL: Nail and fingers with good capillary refill. No clubbing cyanosis or edema SKIN: Warm and well perfused with good skin turgor. NEUROLOGIC: Cranial nerves II through XII grossly intact. Sensation upper and extremities intact. No focal or lateralizing signs. PSYCH: Appropriate affect. Alert and oriented to person, place and time. Displays appropriate insight. CLINCAL LABS: Reviewed. Hemoglobin on presentation 17.5. White count elevated. Lactate elevated IMAGING: Independently reviewed CT of the abdomen and pelvis with mechanical small bowel obstruction identified along the right lower quadrant. RADIOLOGY: Report reviewed the CT of the abdomen and pelvis confirming distal jejunal obstruction RECORDS: previous old records reviewed with rectal polyp removed January 2018 ASSESSMENT: 1. Mechanical small bowel obstruction 2. Severe dehydration 3. Past history of gastric/duodenal ulcer disease with exploration PLAN: 1. Additional 2 L normal saline bolus needed for severe dehydration. 2. He has elevated creatinine consistent with severe dehydration 3. Protonix 40 mg twice daily for acute gastritis 4. I did review with the patient options for surgical intervention versus conservative management for 24 hours. With his delayed presentation for at least 4 days, he has high likelihood for requiring surgical intervention at some point. Patient did not want surgery at this time. We will reevaluate. Thank you for this kind consultation. Surgical - Exam Vital Signs Temp Pulse Resp BP Pulse Ox 98.2 F 122 H 18 116/82 97 10/02/19 22:54 10/02/19 22:54 10/02/19 22:54 10/02/19 22:54 10/02/19 22:54 Results - Labs 10/04/19 04:36 10/04/19 04:36 Abnormal Lab Results - Last 24 Hours (Table) 10/03/19 10/03/19 10/03/19 Range/Units 10:36 10:36 10:36 WBC 11.2 H (3.8-10.6) k/uL RBC (4.30-5.90) m/uL Hgb (13.0-17.5) gm/dL Hct (39.0-53.0) % Neutrophils # 8.8 H (1.3-7.7) k/uL BUN 30 H (9-20) mg/dL Creatinine 1.31 H (0.66-1.25) mg/dL Glucose 120 H (74-99) mg/dL POC Glucose (mg/dL) (75-99) mg/dL Vitamin D 25-Hydroxy 28.6 L (30.0-100.0) ng/mL PTH Intact 158.5 H (14.0-72.0) pg/mL 10/03/19 10/03/19 10/04/19 Range/Units 18:21 18:47 00:41 WBC 10.8 H (3.8-10.6) k/uL RBC 4.12 L (4.30-5.90) m/uL Hgb 12.3 L (13.0-17.5) gm/dL Hct 37.9 L (39.0-53.0) % Neutrophils # 8.5 H (1.3-7.7) k/uL BUN (9-20) mg/dL Creatinine (0.66-1.25) mg/dL Glucose (74-99) mg/dL POC Glucose (mg/dL) 107 H (75-99) mg/dL Vitamin D 25-Hydroxy (30.0-100.0) ng/mL PTH Intact (14.0-72.0) pg/mL 10/04/19 10/04/19 Range/Units 04:36 04:36 WBC (3.8-10.6) k/uL RBC 3.87 L (4.30-5.90) m/uL Hgb 11.5 L (13.0-17.5) gm/dL Hct 35.3 L (39.0-53.0) % Neutrophils # 7.9 H (1.3-7.7) k/uL BUN 33 H (9-20) mg/dL Creatinine (0.66-1.25) mg/dL Glucose 126 H (74-99) mg/dL POC Glucose (mg/dL) (75-99) mg/dL Vitamin D 25-Hydroxy (30.0-100.0) ng/mL PTH Intact (14.0-72.0) pg/mL Diabetes panel 10/03/19 10/04/19 Range/Units 10:36 04:36 Sodium 140 140 (137-145) mmol/L Potassium 3.8 4.2 (3.5-5.1) mmol/L Chloride 100 106 (98-107) mmol/L Carbon Dioxide 30 25 (22-30) mmol/L BUN 30 H 33 H (9-20) mg/dL Creatinine 1.31 H 1.22 (0.66-1.25) mg/dL Glucose 120 H 126 H (74-99) mg/dL Calcium 9.7 9.1 (8.4-10.2) mg/dL Calcium panel 10/03/19 10/04/19 Range/Units 10:36 04:36 Calcium 9.7 9.1 (8.4-10.2) mg/dL Ionized Calcium [place] 5.0 (4.5-5.3) mg/dL Pituitary panel 10/03/19 10/04/19 Range/Units 10:36 04:36 Sodium 140 140 (137-145) mmol/L Potassium 3.8 4.2 (3.5-5.1) mmol/L Chloride 100 106 (98-107) mmol/L Carbon Dioxide 30 25 (22-30) mmol/L BUN 30 H 33 H (9-20) mg/dL Creatinine 1.31 H 1.22 (0.66-1.25) mg/dL Glucose 120 H 126 H (74-99) mg/dL Calcium 9.7 9.1 (8.4-10.2) mg/dL Adrenal panel 10/03/19 10/04/19 Range/Units 10:36 04:36 Sodium 140 140 (137-145) mmol/L Potassium 3.8 4.2 (3.5-5.1) mmol/L Chloride 100 106 (98-107) mmol/L Carbon Dioxide 30 25 (22-30) mmol/L BUN 30 H 33 H (9-20) mg/dL Creatinine 1.31 H 1.22 (0.66-1.25) mg/dL Glucose 120 H 126 H (74-99) mg/dL Calcium 9.7 9.1 (8.4-10.2) mg/dL Assessment and Plan (1) History of gastric ulcer Current Visit: Yes Status: Acute Code(s): Z87.19 - PERSONAL HISTORY OF OTHER DISEASES OF THE DIGESTIVE SYSTEM SNOMED Code(s): 263432558 (2) Gastritis with bleeding Current Visit: Yes Status: Acute Code(s): K29.71 - GASTRITIS, UNSPECIFIED, WITH BLEEDING SNOMED Code(s): 1115287 (3) Dehydration Current Visit: Yes Status: Acute Code(s): E86.0 - DEHYDRATION SNOMED Code(s): 98731045 (4) Acute kidney injury (HAMZAH) with acute tubular necrosis (ATN) Current Visit: Yes Status: Acute Code(s): N17.0 - ACUTE KIDNEY FAILURE WITH TUBULAR NECROSIS SNOMED Code(s): 267493973 (5) Nausea & vomiting Current Visit: Yes Status: Acute Code(s): R11.2 - NAUSEA WITH VOMITING, UNSPECIFIED SNOMED Code(s): 56999087 (6) Small bowel obstruction Current Visit: Yes Status: Acute Code(s): K56.609 - UNSP INTESTNL OBST, UNSP TO PARTIAL VERSUS COMPLETE OBST SNOMED Code(s): 898562858
[2019-10-03 11:55] LABS: Calcium 9.7 mg/dL (8.4-10.2); Potassium 3.8 mmol/L (3.5-5.1)
--- NOTE | 2019-10-03 13:45 | P.HPIM ---
History of Present Illness H&P Date: 10/03/19 (Small bowel obstruction) Chief Complaint: Abdominal pain with cramps nausea or vomiting, no p.m. no flatus Chief complaint: Patient felt sick 4 days ago, associated with nausea and vomiting, unable to have a bowel movement or pass gases he took some [id number] medication to relieve his inability to have a bowel movement, he got worse nausea and vomiting. History of present illness Mr. Sheffield is a 59 years old -[place] male has been doing well until 4 days ago he felt sick stoma with the associated nausea and vomiting and he could not pass gases or having a bowel movement with abdominal pain and cramp, he has occasional [place] sweats but no fever occasional chills, no blood coming out from his rectum and no bowel movement, even water causing him to throw up. 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 Past medical history: He had history of peptic ulcer perforation in 1990 he has been operated upon by Dr. Linton the surgeon. And repaired. 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 History of remote tobacco use and history of thoracolumbar disc disorder. And vitamin D deficiency. ALLERGY: Peanut and shellfish. Review of system Neuropsychiatry no complain. Last colonoscopy in January 2018, total hip replacement on 01/08/2019. Stomach surgery for peptic ulcer disease Previous habit of whiskey drinking. He used to smoke cigarettes from age of [age] years old. As 3 sons and 1 daughter. Currently he is single and he had Firenze. Family history mother in good health, lupus brother depression father hypertension and high cholesterol Brother has metastatic cancer mother arthritis his father at the age of 69 massive heart attack brothers in good health and one 53 with metastatic cancer and a sister of age of 54 with lupus. Again review of system: Neuropsychiatry negative Cardiovascular no chest pain or palpitation Respiratory no cough or expectoration with a history of hyperinflation due to smoking. Musculoskeletal he had history of arthritis. GI main concern was abdominal distention and abdominal cramping nausea and vomiting and currently he had NG tube and draining with acidemic teen. Extremities no edema and positive pulses. Hip joint prostheses. Physical exam: Patient conscious alert oriented 3 able to communicate freely no confusion or disorientation. HEENT negative, head was normocephalic and atraumatic, normal hearing, oropharynx is normal with the NG tube nasal with draining of acidemic teen bloody Neck was supple no JVD no thyromegaly no lymphadenopathy trachea midline. And his chest x-ray was negative for expectoration and chest was clear to auscultation and percussion. The abdomen diffuse tympanometric distention was. With the underlying obstructive small bowel and feeling nauseated and he had NG tube and the bowel sound is not present. Extremities no edema and positive pulses. Neurological examination no lateralizing sign 94 extremities. No neuro deficit. Laboratory on admission indicating he had severe hemoconcentration with a high hemoglobin and high hematocrit. Also indicating that hypercalcemia was lactic acidosis as well as elevated BUN and creatinine, hypercalcemia and mild elevation of total protein The above abnormality associated with severe dehydration. Assessment: #1 small bowel obstruction distal jejunum and proximal ileum. The computed tomography scan associated with the physical finding as mentioned above. #2 severe dehydration. #3 underlying history of hyperparathyroidism, hypercalcemia, and alcohol intake. #4 mild elevation of calcium and protein secondary also to dehydration. Past history of hypertension, degenerative arthritis and hyper lipidemia. #5 history of peptic ulcer disease and perforation in the past in 1990. Assessment and plan: #1 obtain laboratory after these hydration to indicate improvement in the severe dehydration. #[address] Park, #3 NG tube for decompression #4 starting on Protonix IV piggyback. #4 biceps Ali with the complaining of severe dryness of the mouth. #5 hold all medication #6 adjusted her blood pressure was Vasotec 2.5 mg every 6 hour when necessary and will hold if blood pressure 120 systolic or below. #6 hydration with 100 mL per hour. Discussion about the plan treatment as well as the surgical consultation and currently monitoring the patient with observation it may resolve without surgical intervention. Past Medical History Past Medical History: Hyperlipidemia, Hypertension Additional Past Medical History / Comment(s): past hx colon polyps, back pain History of Any Multi-Drug Resistant Organisms: None Reported Past Surgical History: Heart Catheterization Additional Past Surgical History / Comment(s): surg. for perforated ulcer Past Anesthesia/Blood Transfusion Reactions: No Reported Reaction Past Psychological History: Anxiety, Depression Smoking Status: Never smoker Past Alcohol Use History: Occasional Additional Past Alcohol Use History / Comment(s): started smoking at age 21- <1ppd Past Drug Use History: Marijuana Additional Drug Use History / Comment(s): uses marijuana weekly - Past Family History Mother Family Medical History: No Reported History Brother(s) Family Medical History: No Reported History Medications and Allergies Home Medications Medication Instructions Recorded Confirmed Type QUEtiapine FUMARATE [SEROquel] 300 mg PO HS 09/30/13 10/03/19 History Enalapril [Vasotec] 20 mg PO DAILY 06/18/15 10/03/19 History Simvastatin [Zocor] 20 mg PO HS 06/18/15 10/03/19 History amLODIPine BESYLATE [Norvasc] 10 mg PO DAILY 7 Days tablet 01/09/19 10/03/19 Rx Aspirin EC [Ecotrin Low Dose] 81 mg PO DAILY 10/03/19 10/03/19 History Diclofenac Sodium [Voltaren] 75 mg PO BID 10/03/19 10/03/19 History Allergies Allergy/AdvReac Type Severity Reaction Status Date / Time peanut Allergy Rash/Hives Verified 10/02/19 22:56 shellfish derived Allergy Rash/Hives Verified 10/02/19 22:56 Physical Exam Vitals: Vital Signs Temp Pulse Pulse Resp BP BP Pulse Ox 10/03/19 07:42 97.9 F 104 H 20 157/94 96 10/03/19 04:00 98.4 F 107 H 154/93 95 10/03/19 03:32 98.2 F 105 H 20 141/93 100 10/03/19 02:30 88 18 105/82 96 10/02/19 22:54 98.2 F 122 H 18 116/82 97 Intake and Output 10/02/19 10/03/19 10/03/19 22:59 06:59 14:59 Output Total 950 Balance -950 Output: Gastric Drainage 950 Other: Weight 104.326 kg 104.326 kg Results CBC & Chem 7: 10/03/19 10:36 10/03/19 10:36 Labs: Abnormal Lab Results - Last 24 Hours (Table) 10/02/19 10/02/19 10/02/19 Range/Units 23:30 23:30 23:30 WBC (3.8-10.6) k/uL RBC 6.18 H (4.30-5.90) m/uL Hgb 17.6 H (13.0-17.5) gm/dL Hct 54.4 H (39.0-53.0) % Neutrophils # 7.9 H (1.3-7.7) k/uL Chloride 93 L (98-107) mmol/L Carbon Dioxide 31 H (22-30) mmol/L BUN 32 H (9-20) mg/dL Creatinine 1.75 H (0.66-1.25) mg/dL Glucose 162 H (74-99) mg/dL Plasma Lactic Acid Sy 2.4 H* (0.7-2.0) mmol/L Calcium 11.2 H (8.4-10.2) mg/dL Total Protein 8.3 H (6.3-8.2) g/dL Urine Protein (Negative) Urine Ketones (Negative) Hyaline Casts (0-2) /lpf Urine Mucus (None) /hpf 10/03/19 10/03/19 10/03/19 Range/Units 00:08 10:36 10:36 WBC 11.2 H (3.8-10.6) k/uL RBC (4.30-5.90) m/uL Hgb (13.0-17.5) gm/dL Hct (39.0-53.0) % Neutrophils # 8.8 H (1.3-7.7) k/uL Chloride (98-107) mmol/L Carbon Dioxide (22-30) mmol/L BUN 30 H (9-20) mg/dL Creatinine 1.31 H (0.66-1.25) mg/dL Glucose 120 H (74-99) mg/dL Plasma Lactic Acid Sy (0.7-2.0) mmol/L Calcium (8.4-10.2) mg/dL Total Protein (6.3-8.2) g/dL Urine Protein 2+ H (Negative) Urine Ketones Trace H (Negative) Hyaline Casts 69 H (0-2) /lpf Urine Mucus Many H (None) /hpf Thrombosis Risk Factor Assmnt - Choose All That Apply Any of the Below Risk Factors Present?: Yes Each Factor Represents 1 point: Obesity (BMI >25) Other Risk Factors: Yes Each Risk Factor Represents 2 Points: Age 61-74 years Thrombosis Risk Factor Assessment Total Risk Factor Score: 3 Thrombosis Risk Factor Assessment Level: Moderate Risk
[2019-10-03] MEDS ORDERED: SODIUM CHLORIDE 0.9% 2,000 ML IV ONE (17:45)
[2019-10-03] MEDS: PANTOPRAZOLE 40 MG/10 ML VIAL IVP SCH (18:11)
[2019-10-03 18:23] LABS: Glucose,Whole Blood 107 mg/dL (75-99)
[2019-10-03 19:18] LABS: Basophils % (A) 0 %; Eosinophils # (A) 0.1 k/uL (0-0.7); Eosinophils % (A) 1 %; HCT 44.6 % (39.0-53.0); HGB 14.7 gm/dL (13.0-17.5); Lymphocytes # (A) 1.1 k/uL (1.0-4.8); Lymphocytes % (A) 10 %; MCH 29.9 pg (25.0-35.0); MCHC 32.9 g/dL (31.0-37.0); MCV 90.7 fL (80.0-100.0); Mean Platelet Volume 9.9; Monocytes # (A) 0.9 k/uL (0-1.0); Monocytes % (A) 8 %; Neutrophils # (A) 8.5 k/uL (1.3-7.7); Neutrophils % (A) 79 %; Platelet Count 190 k/uL (150-450); RBC 4.92 m/uL (4.30-5.90); WBC 10.8 k/uL (3.8-10.6)
[2019-10-03] MEDS: ONDANSETRON 4 MG/2 ML VIAL IVP PRN (19:19)
[2019-10-03] MEDS: PIPERACILLIN-TAZOBACTAM 3.375 GM in SODIUM CHLORIDE 0.9% 100 ML IVPB SCH (19:55)
[2019-10-03] MEDS ORDERED: PIPERACILLIN-TAZOBACTAM 3.375 GM in SODIUM CHLORIDE 0.9% 100 ML IVPB SCH (20:00)
[2019-10-03] MEDS: MAG HYDROX/AL HYDROX/SIMETH 30 ML CUP PO SCH (21:45)
[2019-10-04] MEDS: HYDROmorphone 1 MG/ML 1 ML SYRINGE IVP PRN ×5 (00:07→19:48)
[2019-10-04 01:03] LABS: Basophils % (A) 0 %; Eosinophils # (A) 0.1 k/uL (0-0.7); Eosinophils % (A) 1 %; HCT 37.9 % (39.0-53.0); HGB 12.3 gm/dL (13.0-17.5); Lymphocytes % (A) 11 %; MCH 29.7 pg (25.0-35.0); MCHC 32.4 g/dL (31.0-37.0); MCV 91.8 fL (80.0-100.0); Mean Platelet Volume 8.7; Monocytes # (A) 0.5 k/uL (0-1.0); Monocytes % (A) 6 %; Neutrophils # (A) 7.3 k/uL (1.3-7.7); Neutrophils % (A) 80 %; Platelet Count 264 k/uL (150-450); RBC 4.12 m/uL (4.30-5.90); RDW 13.9 % (11.5-15.5)
[2019-10-04] MEDS: SODIUM CHLORIDE 0.9% 1,000 ML IV SCH ×3 (01:38→19:57)
[2019-10-04] MEDS: MAG HYDROX/AL HYDROX/SIMETH 30 ML CUP PO SCH ×6 (01:38→23:47)
--- NOTE | 2019-10-04 02:08 | XR ---
EXAMINATION TYPE: XR chest 1V portable DATE OF EXAM: 10/04/2019 COMPARISON: 10/03/2019 HISTORY: Check tube placement TECHNIQUE: Single view FINDINGS: There is nasogastric tube looped in the stomach. There is mild subsegmental atelectasis lef t lung base. Heart size is normal. There is no heart failure. There is no pleural effusion. IMPRESSION: Minimal subsegmental atelectasis. NG tube in good position. Heart and lungs not significa ntly different than yesterday.
[2019-10-04] MEDS: PIPERACILLIN-TAZOBACTAM 3.375 GM in SODIUM CHLORIDE 0.9% 100 ML IVPB SCH ×3 (02:41→20:01)
[2019-10-04] MEDS: ONDANSETRON 4 MG/2 ML VIAL IVP PRN (04:08)
[2019-10-04 05:01] LABS: Basophils % (A) 0 %; Eosinophils # (A) 0.1 k/uL (0-0.7); Eosinophils % (A) 1 %; HCT 35.3 % (39.0-53.0); HGB 11.5 gm/dL (13.0-17.5); Lymphocytes % (A) 10 %; MCH 29.7 pg (25.0-35.0); MCHC 32.5 g/dL (31.0-37.0); MCV 91.4 fL (80.0-100.0); Mean Platelet Volume 8.5; Monocytes # (A) 0.6 k/uL (0-1.0); Monocytes % (A) 6 %; Neutrophils # (A) 7.9 k/uL (1.3-7.7); Neutrophils % (A) 80 %; Platelet Count 242 k/uL (150-450); RBC 3.87 m/uL (4.30-5.90); RDW 13.9 % (11.5-15.5); WBC 9.8 k/uL (3.8-10.6)
[2019-10-04 05:09] LABS: Calcium 9.1 mg/dL (8.4-10.2); Potassium 4.2 mmol/L (3.5-5.1)
[2019-10-04] MEDS: BENZOCAINE SPRAY 1 CAN MUCOUS MEM PRN (05:32)
--- NOTE | 2019-10-04 07:57 | P.PN ---
Subjective Progress Note Date: 10/04/19 CHIEF COMPLAINT: Small bowel obstruction HISTORY OF PRESENT ILLNESS: The patient is a 59-year-old male admitted yesterday for mechanical small bowel obstruction. He has a past history of gastric ulcer repair years ago. Separately last night he developed acute emesis despite having a nasogastric tube. He is currently on Protonix twice daily started late yesterday evening. This morning he is transferred from the floor to the intensive care unit. Yesterday he received over 3 L normal saline bolus for dehydration. In the ICU, he reports passing flatus and having several episodes of hematemesis despite having a nasogastric tube. Hemoglobin has dropped from 17 down to 11. Portion of drop in hemoglobin is from 4 days of dehydration following boluses. ROS: Has nausea and vomiting. No bowel movements. No fevers or chills. No new chest pain. He is passing flatus, new. PHYSICAL EXAM: VITAL SIGNS: Reviewed CONSTITUTIONAL: Well developed and in no acute distress. EYES: Conjuctivae without sclera icterus. Extraocular movements grossly intact. HEAD, EARS, NOSE, THROAT: Moist buccal mucosa. Head is atraumatic, normocephalic. Hears conversational speech. No nasal drainage. NECK: Supple. No thyroidomegaly. RESPIRATORY: Non-labored respirations and equal bilateral excursions. CARDIOVASCULAR: Palpable 2+ radial pulses. tachycardic. ABDOMEN: Protuberant. Mild distention. Tender along the right lower quadrant. No peritonitis MUSCULOSKELETAL: No gross deformity of the lower extremities noted. No clubbing. No cyanosis. SKIN: Good skin turgor. Well perfused. NEUROLOGIC: Cranial nerves II through XII grossly intact. No focal or lateralizing signs. PSYCH: Appropriate affect. Alert and oriented to person, place and time. CLINICAL LABS: White blood cell count normal 9.8, down from 11.2. Hgb 17.6 to 11.5. Creatinine improved from 1.75 to 1.22. ASSESSMENT: 1. Small bowel obstruction on admission, 2. Dehydration, [id number] on admission 3. Acute kidney injury present on admission secondary to dehydration 4. Hematemesis, new with history of gastric ulcers PLAN: 1. Recommend acute abdominal series to monitor small bowel obstruction and he reports improvement. May need exploratory laparotomy 2. Patient will be boarded for upper endoscopy acute hematemesis and history of gastric ulcers. Likely need gastric tube feeding discontinued. 3. Patient typed and crossed for blood 4. Transfuse as needed for symptomatic anemia 5. Patient high surgical risk with proceeding with upper endoscopy from acute hematemesis. Critical care time: 31 minutes Objective - Vital Signs Vital signs: Vital Signs Temp 98.5 F 10/04/19 04:00 Pulse 108 H 10/04/19 07:00 Resp 20 10/04/19 07:00 BP 140/97 10/04/19 06:30 Pulse Ox 98 10/04/19 06:30 Intake & Output 10/03/19 10/04/19 10/04/19 18:59 06:59 18:59 Intake Total 720 2900 100 Output Total 1450 1375 Balance -730 1525 100 Weight 99.5 kg Intake: IV 2900 100 Sodium Chloride 0.9% 1, 900 100 000 ml @ 100 mls/hr IV . Q10H [facility] Rx#:[id number] Sodium Chloride 0.9% 2, 2000 000 ml @ 999 mls/hr IV . Q2H1M [facility] Rx#:[id number] Oral 720 Output: Gastric Drainage 1450 400 Urine 300 Emesis 675 Other: Voiding Method Urinal # Voids 2 0 0 - Labs CBC & Chem 7: 10/04/19 04:36 10/04/19 04:36 Labs: Abnormal Lab Results - Last 24 Hours (Table) 10/03/19 10/03/19 10/03/19 Range/Units 10:36 10:36 10:36 WBC 11.2 H (3.8-10.6) k/uL RBC (4.30-5.90) m/uL Hgb (13.0-17.5) gm/dL Hct (39.0-53.0) % Neutrophils # 8.8 H (1.3-7.7) k/uL BUN 30 H (9-20) mg/dL Creatinine 1.31 H (0.66-1.25) mg/dL Glucose 120 H (74-99) mg/dL POC Glucose (mg/dL) (75-99) mg/dL Vitamin D 25-Hydroxy 28.6 L (30.0-100.0) ng/mL PTH Intact 158.5 H (14.0-72.0) pg/mL 10/03/19 10/03/19 10/04/19 Range/Units 18:21 18:47 00:41 WBC 10.8 H (3.8-10.6) k/uL RBC 4.12 L (4.30-5.90) m/uL Hgb 12.3 L (13.0-17.5) gm/dL Hct 37.9 L (39.0-53.0) % Neutrophils # 8.5 H (1.3-7.7) k/uL BUN (9-20) mg/dL Creatinine (0.66-1.25) mg/dL Glucose (74-99) mg/dL POC Glucose (mg/dL) 107 H (75-99) mg/dL Vitamin D 25-Hydroxy (30.0-100.0) ng/mL PTH Intact (14.0-72.0) pg/mL 10/04/19 10/04/19 Range/Units 04:36 04:36 WBC (3.8-10.6) k/uL RBC 3.87 L (4.30-5.90) m/uL Hgb 11.5 L (13.0-17.5) gm/dL Hct 35.3 L (39.0-53.0) % Neutrophils # 7.9 H (1.3-7.7) k/uL BUN 33 H (9-20) mg/dL Creatinine (0.66-1.25) mg/dL Glucose 126 H (74-99) mg/dL POC Glucose (mg/dL) (75-99) mg/dL Vitamin D 25-Hydroxy (30.0-100.0) ng/mL PTH Intact (14.0-72.0) pg/mL
--- NOTE | 2019-10-04 08:31 | XR ---
EXAMINATION TYPE: XR abdomen 1V DATE OF EXAM: 10/04/2019 8:17 AM CLINICAL HISTORY: Small bowel obstruction TECHNIQUE: Single supine KUB image of the abdomen is obtained. COMPARISON: CT dated 10/03/2019. FINDINGS: Dilation of small bowel loops are seen throughout measuring up to 4.5 cm second upon one an other compatible with small bowel obstruction. Enteric tube appears appropriately placed with its fen estrated portion overlying the gastric fundus. Left hip arthroplasty noted. Supine imaging limits jose luis luation for pneumoperitoneum. Lungs bases are well aerated. IMPRESSION: Dilated loops of small bowel compatible with the patient's known small bowel obstruction with small bowel loops measuring up to 4.5 cm. Appropriately placed enteric tube.
[2019-10-04] MEDS: PANTOPRAZOLE 40 MG/10 ML VIAL IVP SCH ×2 (08:35→23:54)
--- NOTE | 2019-10-04 09:23 | P.PN ---
Progress Note - Text Progress Note Date: 10/04/19 Patient reevaluated following his abdominal x-ray. He reports persistent right lower quadrant abdominal pain. Nasogastric tube readjusted with additional blood out of nasogastric tube after being flushed. Abdominal x-ray demonstrates persistent small bowel obstruction. With patient's new GI bleed, hematemesis, persistent right lower quadrant abdominal pain and persistent small bowel obstruction, recommend exploratory laparotomy possible small bowel resection. Additionally, with his hematemesis, also recommend upper endoscopy to be performed intraoperatively. May need repair of a gastric ulcer. Patient has been typed and screened. We'll repeat hemoglobin. Also will need s tat EKG as none present on chart. Benefits and risks of surgery described including need for small bowel resection, exploratory laparotomy. Patient presents as high risk. We'll need postop recovery in intensive care unit.
--- NOTE | 2019-10-04 10:54 | P.CNPUL ---
History of Present Illness Consult date: 10/04/19 Chief complaint: Abdominal pain, hematemesis History of present illness: This is a very pleasant 59-year-old male patient with has both yesterday because of small bowel obstruction. The patient has history of peptic ulcer disease and the patient has undergone previous gastric surgery for a bleeding ulcer back in the 90s. He came in with abdominal pain and distention of a few days duration. He was unable to pass any bowel movements or flatus. No reported diarrhea. He was having nausea and emesis. He was admitted for small bowel obstruction. NG tube was placed in the emergency department. Approximately 400 mL of drainage was immediately obtained. A CAT scan of the abdomen was also done that showed and confirmed the presence of small bowel obstruction. There was bilateral small bowel consistent with mechanical small bowel obstruction at the level of the distal jejunum or proximal ileum. Obstruction was no compared to the old examination. Yesterday afternoon, the patient a chest to the intensive care unit as the patient started having coffee-ground material coming out of the NG. He also was having episodic hematemesis. The patient vomited approximately 5 mL of blood. The patient was given a total of 4 L of IV fluids. The patient's hemoglobin dropped from a baseline of 17.6 down to 11.5 this morning. His last bout of emesis of blood was earlier this morning. Gen. surgery was informed that the patient will be having a gastroscopy. Meanwhile, the patient claims that his been passing some flatus today. NG tube still in place. Abdomen is distended. It's less tender compared to yesterday and the patient is receiving morphine 4 mg every 3 hours for pain control and addition to Dilaudid 1 mg every 3 hours for pain control. He is on IV fluids running at 150 mL an hour of normal saline. General surgeries on the case. Is covered with IV Zosyn. The white cell count is not elevated. His lactic acid level started about 2.4 and dropped down to 1.6. Calcium is at 9.1. Review of Systems Eyes: denies as per HPI, denies blurred vision, denies bulging eye, denies d ecreased vision, denies diplopia, denies discharge, denies dry eye, denies irritation, denies itching, denies pain, denies photophobia, denies loss of peripheral vision, denies loss of vision, denies tunnel vision/blind spots Ears: deny: decreased hearing, ear discharge, earache, tinnitus Ears, nose, mouth and throat: Denies headache, Denies sore throat Breasts: absent: as per HPI, gynecomastia Cardiovascular: Reports as per HPI Respiratory: Reports as per HPI Gastrointestinal: Reports abdominal pain, Reports coffee ground emesis, Reports nausea, Reports vomiting Genitourinary: Reports as per HPI Musculoskeletal: Reports as per HPI Musculoskeletal: absent: ankle pain, ankle stiffness, ankle swelling Integumentary: Reports as per HPI Neurological: Reports as per HPI Psychiatric: Reports as per HPI Endocrine: Reports as per HPI Hematologic/Lymphatic: Reports as per HPI Allergic/Immunologic: Reports as per HPI Past Medical History Past Medical History: Hyperlipidemia, Hypertension Additional Past Medical History / Comment(s): past hx colon polyps, back pain, history of hyperparathyroidism, hypertension, degenerative arthritis, hyperlipidemia, history of peptic ulcer disease from 1990 History of Any Multi-Drug Resistant Organisms: None Reported Past Surgical History: Heart Catheterization Additional Past Surgical History / Comment(s): surg. for perforated ulcer Past Anesthesia/Blood Transfusion Reactions: No Reported Reaction Past Psychological History: Anxiety, Depression Smoking Status: Never smoker Past Alcohol Use History: Occasional Additional Past Alcohol Use History / Comment(s): started smoking at age 21- <1ppd Past Drug Use History: Marijuana Additional Drug Use History / Comment(s): uses marijuana weekly - Past Family History Mother Family Medical History: No Reported History Brother(s) Family Medical History: No Reported History Medications and Allergies Home Medications Medication Instructions Recorded Confirmed Type QUEtiapine FUMARATE [SEROquel] 300 mg PO HS 09/30/13 10/03/19 History Enalapril [Vasotec] 20 mg PO DAILY 06/18/15 10/03/19 History Simvastatin [Zocor] 20 mg PO HS 06/18/15 10/03/19 History amLODIPine BESYLATE [Norvasc] 10 mg PO DAILY 7 Days tablet 01/09/19 10/03/19 Rx Aspirin EC [Ecotrin Low Dose] 81 mg PO DAILY 10/03/19 10/03/19 History Diclofenac Sodium [Voltaren] 75 mg PO BID 10/03/19 10/03/19 History Allergies Allergy/AdvReac Type Severity Reaction Status Date / Time peanut Allergy Rash/Hives Verified 10/02/19 22:56 shellfish derived Allergy Rash/Hives Verified 10/02/19 22:56 Physical Exam Vitals: Vital Signs Temp Pulse Pulse Resp BP BP Pulse Ox 10/04/19 10:00 104 H 16 124/87 95 10/04/19 09:30 111 H 15 124/63 97 10/04/19 09:00 105 H 7 L 137/87 96 10/04/19 08:30 117 H 21 137/87 96 10/04/19 08:00 98 F 115 H 17 136/112 100 10/04/19 07:30 114 H 11 L 136/81 10/04/19 07:00 108 H 20 10/04/19 06:30 111 H 11 L 140/97 98 10/04/19 06:00 105 H 10 L 132/91 100 10/04/19 05:30 116 H 10 L 139/94 99 10/04/19 05:00 105 H 14 130/90 100 10/04/19 04:30 103 H 20 125/71 99 10/04/19 04:00 98.5 F 113 H 12 133/96 100 10/04/19 03:30 111 H 14 131/76 97 10/04/19 03:00 109 H 16 140/74 99 10/04/19 02:30 111 H 18 135/71 97 10/04/19 02:00 112 H 13 134/86 98 10/04/19 01:30 112 H 16 118/73 96 10/04/19 01:00 115 H 23 123/98 98 10/04/19 00:30 117 H 15 103/68 10/04/19 00:00 97.5 F L 126 H 14 100/74 10/03/19 23:30 115 H 14 126/105 99 10/03/19 23:00 117 H 17 135/96 10/03/19 22:30 108 H 13 130/105 98 10/03/19 22:09 110 H 13 130/105 10/03/19 22:00 114 H 21 130/78 100 10/03/19 21:30 106 H 22 129/73 99 10/03/19 21:00 100 17 145/86 98 10/03/19 20:30 106 H 19 121/83 100 10/03/19 20:00 98.4 F 99 101 H 17 135/89 97 10/03/19 19:30 102 H 11 L 148/93 98 10/03/19 18:30 102 H 15 137/99 98 10/03/19 18:25 85 L 10/03/19 18:02 101 H 18 138/87 99 10/03/19 17:02 97.8 F 97 20 147/93 95 10/03/19 16:55 15 10/03/19 14:51 98.0 F 94 15 136/82 96 Intake and Output 10/03/19 10/04/19 10/04/19 22:59 06:59 14:59 Intake Total 2100 800 300 Output Total 678 245 0627 Balance 1200 -175 -750 Intake: IV 2100 800 300 Sodium Chloride 0.9% 1, 100 800 300 000 ml @ 100 mls/hr IV . Q10H [facility] Rx#:[id number] Sodium Chloride 0.9% 2, 2000 000 ml @ 999 mls/hr IV . Q2H1M [facility] Rx#:[id number] Output: Gastric Drainage 900 150 Urine 300 300 Emesis 675 600 Other: Voiding Method Urinal Urinal Urinal # Voids 0 0 0 Weight 99.5 kg Gen. appearance, comfortable likely distress. NG tube is in place. Head exam was generally normal. There was no scleral icterus or corneal arcus. Mucous membranes were moist. Neck was supple and without jugular venous distension, thyromegaly, or carotid bruits. Carotids were easily palpable bilaterally. There was no adenopathy. NG tube is in place and there is coffee-ground material being drained for now. Lungs were clear to auscultation and percussion, and with normal diaphragmatic excursion. No wheezes or rales were noted. Cardiac exam revealed the PMI to be normally situated and sized. The rhythm was regular and no extrasystoles were noted during several minutes of auscultation. The first and second heart sounds were normal and physiologic splitting of the second heart sound was noted. There were no murmurs, rubs, clicks, or gallops. Abdomen is distended bowel sounds are present and they're hypoactive. No direct tenderness amount tensile guarding. No ascites. No organomegaly. Examination of the skin revealed no evidence of significant rashes, suspicious appearing nevi or other concerning lesions. Neurologically the patient is awake and alert and is no focal neurological deficit Results - Laboratory Findings CBC and BMP: 10/04/19 04:36 10/04/19 04:36 PT/INR, D-dimer PT 11.1 sec (9.0-12.0) 10/02/19 23:30 INR 1.1 (<1.2) 10/02/19 23:30 Abnormal lab findings: Abnormal Labs 10/02/19 10/02/19 10/02/19 23:30 23:30 23:30 WBC RBC 6.18 H Hgb 17.6 H Hct 54.4 H Neutrophils # 7.9 H Chloride 93 L Carbon Dioxide 31 H BUN 32 H Creatinine 1.75 H Glucose 162 H POC Glucose (mg/dL) Plasma Lactic Acid Sy 2.4 H* Calcium 11.2 H Total Protein 8.3 H Vitamin D 25-Hydroxy PTH Intact Urine Protein Urine Ketones Hyaline Casts Urine Mucus 10/03/19 10/03/19 10/03/19 00:08 10:36 10:36 WBC 11.2 H RBC Hgb Hct Neutrophils # 8.8 H Chloride Carbon Dioxide BUN 30 H Creatinine 1.31 H Glucose 120 H POC Glucose (mg/dL) Plasma Lactic Acid Sy Calcium Total Protein Vitamin D 25-Hydroxy 28.6 L PTH Intact Urine Protein 2+ H Urine Ketones Trace H Hyaline Casts 69 H Urine Mucus Many H 10/03/19 10/03/19 10/03/19 10:36 18:21 18:47 WBC 10.8 H RBC Hgb Hct Neutrophils # 8.5 H Chloride Carbon Dioxide BUN Creatinine Glucose POC Glucose (mg/dL) 107 H Plasma Lactic Acid Sy Calcium Total Protein Vitamin D 25-Hydroxy PTH Intact 158.5 H Urine Protein Urine Ketones Hyaline Casts Urine Mucus 10/04/19 10/04/19 10/04/19 00:41 04:36 04:36 WBC RBC 4.12 L 3.87 L Hgb 12.3 L 11.5 L Hct 37.9 L 35.3 L Neutrophils # 7.9 H Chloride Carbon Dioxide BUN 33 H Creatinine Glucose 126 H POC Glucose (mg/dL) Plasma Lactic Acid Sy Calcium Total Protein Vitamin D 25-Hydroxy PTH Intact Urine Protein Urine Ketones Hyaline Casts Urine Mucus - Diagnostic Findings Chest x-ray: image reviewed Assessment and Plan Plan: 1 small bowel obstruction. This is likely a mechanical obstruction at the level of the distal jejunum and proximal ileum based on the CAT scan findings. The patient is an NG tube in place. Rule out possibility of adhesions causing small bowel obstruction. 2 upper GI bleed as the patient had coffee-ground emesis and subsequent bright red blood emesis. Consider recurrent peptic ulcer disease. The patient has had previous history of peptic ulcer disease requiring gastric surgery back in 1990. Currently NG tube is in place. There is a drop in hemoglobin and the patient is hemodynamically stable. EGD is to follow. No several sasha a. This patient has been taken nonsteroidal anti-inflammatory medications including Voltaren and his been taken also aspirin 81 mg on outpatient basis. No alcoholism. No active alcohol drinking. 3 previous history of peptic ulcer disease with perforation of peptic ulcer back in 1990 4 hypertension 5 hyperlipidemia 6 drop in hemoglobin secondary to blood loss from GI bleeding. 7 rback pain 8 history of colonic polyps Plan Continue IV fluids at the rate of 150 mL an hour normal saline IV Protonix IV Zosyn Keep NG tube in place Morphine for pain control Involve general surgery regarding a gastroscopy to localize the source of upper GI bleed Monitor hemoglobin Give the patient ICU for now we'll continue to follow make further recommendations based on his progress.
[2019-10-04 12:43] LABS: Basophils % (A) 0 %; Eosinophils % (A) 0 %; HCT 22.6 % (39.0-53.0); Hypochromasia Slight; Lymphocytes # (A) 0.8 k/uL (1.0-4.8); Lymphocytes % (A) 11 %; MCH 30.1 pg (25.0-35.0); MCHC 32.4 g/dL (31.0-37.0); Mean Platelet Volume 8.3; Monocytes # (A) 0.6 k/uL (0-1.0); Monocytes % (A) 9 %; Neutrophils # (A) 5.7 k/uL (1.3-7.7); Neutrophils % (A) 78 %; Platelet Count 165 k/uL (150-450); RBC 2.43 m/uL (4.30-5.90); RDW 14.1 % (11.5-15.5); WBC 7.3 k/uL (3.8-10.6)
[2019-10-04 12:48] LABS: HGB 7.3 gm/dL (13.0-17.5)
--- NOTE | 2019-10-04 12:52 | P.PN ---
Subjective Progress Note Date: 10/04/19 Principal diagnosis: Diagnoses: #1 small bowel obstruction persistent #2 GI bleeding with the underlying recurrence of peptic ulcer disease with a history of perforated ulcer in 1990 treated with surgical repair. Significant dehydration followed by anemia with the drop of hemoglobin and hematocrit from hemoglobin 17-11.5 with the NG tube Brown acidemic teen. Added to the hydration. #3 lactic acidosis on admission resolved. #4 abnormal creatinine has been improving currently 1.22 creatinine, BUN is 33 secondary to blood in the gut. #5 the associated acute GI bleeding highly considered and Dr. Sanchez will be taken him this afternoon to the surgical suites for exploratory as well as EGD for clarification of the current symptoms. #6 history of alcohol intake which she has been advised before no alcohol and he has been on nonsteroidal anti-inflammatory because of his arthritis and he had history of orthopedic surgery #7 history of probable underlying primary hyperparathyroidism, on admission he had hypercalcemia, however considered the because of the severe dehydration with no oral intake for 4 days prior to the admission with the PTH 158.5. #8 history of hypercalcemia on admission, currently improved to 9.7 with hydration, #9 his renal function normalized with hydration with the creatinine 1.2 to and BUN 33 however the possibility of third space sequestration in the abdomen with the underlying acute obstruction of the small bowel. #10 HISTORY OF HYPERTENSION, hyper lipidemia, degenerative osteoarthritis, hyperparathyroidism, #11 surgical acute abdomen Progress note date of service 10/04/2019. Patient seen and evaluated in the ICU to 52 bed 1. Patient transferred from the fourth floor to the ICU yesterday because of the acute GI bleeding with a significant DROP 3 hemoglobin. Associated with acute abdomen. Review the laboratories as well as reviewed the vital sign in ICU, discussed with the patient, Dr. Rhoades surgical going to have exploratory laparotomy this afternoon with the underlying his condition with the small bowel obstruction admitted to GI bleeding and drop off hemoglobin will be silent abdomen no distention progressive and metastatic abdomen necessitate surgical attention as well as exploratory laparotomy. On exam: Conscious alert oriented 3 He had NG tube with the return is bloody brownish discoloration with acidemic t een with the dark brown suction indicating some bleeding from the stomach. Ears negative and the oropharynx is negative. Neck was supple no JVD no thyromegaly no lymphadenopathy trachea midline. Chest was clear no wheezes nor rhonchi's he is able to B[place] on his own and stable vital sign and patient seen by timber rider and pulmonary critical care Dr. Sofia, also he had the hiccups associated with irritation of the diaphragm with the pressure in the abdomen. Heart regular sinus however with the acute stress he had some indication of tachycardia. Abdomen distended and tympanitic normal bowel sound tender on touch going toes of her surgical exploration. He has a scar in the abdominal area due to. Previous exploration with the peptic ulcer disease in 1990 which was done [address] Marcano on [facility]. Extremities no edema and positive pulses. Assessment: #1 acute abdomen #2 small bowel obstruction #3 GI bleeding with additional ball peptic ulcer disease versus gastritis #4 severe dehydration and that's resolved #5 lactic acid on admission was abnormal and that's resolved. #6 renal function recovered #7 hyperparathyroidism still in process for evaluation primary versus secondary. #7 history of hypertension currently controlled normotensive. Plan and recommendation: Patient going for the operative room today this afternoon for surgical intervention with the acute abdomen. Objective - Vital Signs Vital signs: Vital Signs Temp 98.3 F 10/04/19 12:00 Pulse 116 H 10/04/19 12:00 Resp 26 H 10/04/19 12:00 BP 128/66 10/04/19 12:00 Pulse Ox 94 L 10/04/19 12:00 Intake & Output 10/03/19 10/04/19 10/04/19 18:59 06:59 18:59 Intake Total 720 2900 600 Output Total 1450 1375 1350 Balance -730 1525 -750 Weight 99.5 kg Intake: IV 2900 600 Sodium Chloride 0.9% 1, 900 600 000 ml @ 150 mls/hr IV . Q6H40M [facility] Rx#:[id number] Sodium Chloride 0.9% 2, 2000 000 ml @ 999 mls/hr IV . Q2H1M [facility] Rx#:[id number] Oral 720 Output: Gastric Drainage 1450 400 150 Urine 300 300 Emesis 675 900 Other: Voiding Method Urinal Urinal # Voids 2 0 0 - Labs CBC & Chem 7: 10/04/19 04:36 10/04/19 04:36 Labs: Abnormal Lab Results - Last 24 Hours (Table) 10/03/19 10/03/19 10/03/19 Range/Units 10:36 10:36 18:21 WBC (3.8-10.6) k/uL RBC (4.30-5.90) m/uL Hgb (13.0-17.5) gm/dL Hct (39.0-53.0) % Neutrophils # (1.3-7.7) k/uL BUN (9-20) mg/dL Glucose (74-99) mg/dL POC Glucose (mg/dL) 107 H (75-99) mg/dL Vitamin D 25-Hydroxy 28.6 L (30.0-100.0) ng/mL PTH Intact 158.5 H (14.0-72.0) pg/mL 10/03/19 10/04/19 10/04/19 Range/Units 18:47 00:41 04:36 WBC 10.8 H (3.8-10.6) k/uL RBC 4.12 L 3.87 L (4.30-5.90) m/uL Hgb 12.3 L 11.5 L (13.0-17.5) gm/dL Hct 37.9 L 35.3 L (39.0-53.0) % Neutrophils # 8.5 H 7.9 H (1.3-7.7) k/uL BUN (9-20) mg/dL Glucose (74-99) mg/dL POC Glucose (mg/dL) (75-99) mg/dL Vitamin D 25-Hydroxy (30.0-100.0) ng/mL PTH Intact (14.0-72.0) pg/mL 10/04/19 Range/Units 04:36 WBC (3.8-10.6) k/uL RBC (4.30-5.90) m/uL Hgb (13.0-17.5) gm/dL Hct (39.0-53.0) % Neutrophils # (1.3-7.7) k/uL BUN 33 H (9-20) mg/dL Glucose 126 H (74-99) mg/dL POC Glucose (mg/dL) (75-99) mg/dL Vitamin D 25-Hydroxy (30.0-100.0) ng/mL PTH Intact (14.0-72.0) pg/mL
[2019-10-04] MEDS ORDERED: PROPOFOL 10 MG/ML 20 ML VIAL IV ONE (15:52)
[2019-10-04] MEDS ORDERED: LIDOCAINE 1% INJ 10MG/ML (20 ML MDV) ONE (15:52)
[2019-10-04] MEDS ORDERED: ALBUMIN HUMAN 5% (12.5gm) 250 ML BOTTLE IVPB ONE (15:52)
[2019-10-04] MEDS ORDERED: DEXAMETHASONE SOD PHOSPHATE 10 MG/ML 1 ML VIAL ONE (15:52)
[2019-10-04] MEDS ORDERED: SUCCINYLCHOLINE CHLORIDE 100 MG/5 ML SYR IV ONE (15:52)
[2019-10-04] MEDS ORDERED: MIDAZOLAM 2 MG/2 ML VIAL ONE (15:52)
[2019-10-04] MEDS ORDERED: PHENYLEPHRINE-0.9% NACL SYG 1 MG/10 ML SYRINGE ONE (15:52)
[2019-10-04] MEDS ORDERED: ROCURONIUM BROMIDE 10 MG/ML 5 ML VIAL IV ONE (15:52)
[2019-10-04] MEDS ORDERED: fentaNYL (PF) 50 MCG/ML 2 ML AMP ONE (15:52)
[2019-10-04] MEDS ORDERED: IV FLUID CONTINUATION 250 ML IV ONE ×2 (17:09→17:10)
[2019-10-04] MEDS ORDERED: SODIUM CHLORIDE 0.9% 500 ML 500 ML IV ONE (17:09)
[2019-10-04] MEDS ORDERED: LACTATED RINGERS 1,000 ML IV ONE ×2 (17:13→18:00)
[2019-10-04] MEDS ORDERED: PROPOFOL 100 ML IV ONE (18:28)
[2019-10-04 19:08] LABS: Glucose,Whole Blood 140 mg/dL (75-99)
--- NOTE | 2019-10-04 19:20 | P.OP ---
Date of Procedure: 10/04/19 Description of Procedure: PREOPERATIVE DIAGNOSES: 1. Upper gastrointestinal hemorrhage 2. Small bowel obstruction 3. Acute blood loss anemia 4. Hemorrhagic shock 5. Hypertensive heart disease 6. Previous history of gastric ulcer 7. Previous history of abdominal surgery 8. Morbid obesity due to excess calories, BMI 34.9 9. Hyperlipidemia 10. Depressive disorder 11. Generalized anxiety disorder POSTOP DIAGNOSES: 1. Acute diffuse superficial gastritis and duodenitis with bleeding 2. Complete small bowel obstruction with strangulation due to midline adhesive band, epigastrium 3. Acute blood loss anemia 4. Hemorrhagic shock 5. Hypertensive heart disease 6. Previous history of gastric ulcer 7. Previous history of abdominal surgery 8. Morbid obesity due to excess calories, BMI 34.9 9. Hyperlipidemia 10. Depressive disorder 11. Generalized anxiety disorder 12. Difficult fiberoptic intubation 13. Peritoneal adhesions upper abdomen Procedure(s) Performed: 1. Exploratory laparotomy with ysis of adhesions and small bowel resection, 5 cm, distal jejunum 2. Small bowel enterotomy with drainage of small bowel contents, 1.5 L 3. Peritoneal abdominal washout 2 L 4. Intraoperative upper endoscopy with irrigation 100 mL normal saline 5. Application incisional wound VAC system, 20 cm, PREVENA SURGEON: Dr. Myrna Clinton Anesthesia: GETA Estimated Blood Loss (ml): 50 Pathology: other (Small bowel resection) Condition: critical Disposition: ICU Operative Findings: 1. Complete small bowel obstruction with strangulation due to adhesive band from previous lower midline incision 2. Small bowel decompressed 1.5 L enteric content evacuated for abdominal closure 3. Upper endoscopy demonstrates diffuse bleeding gastritis resolved upon upper endoscopy 4. No gastric ulcers identified during upper endoscopy 5. Duodenum with diffuse ooze without active duodenal ulcer identified 6. Duodenum and stomach irrigated with 100 mL saline 7. Nasogastric tube changed following upper endoscopy 8. Patient with greater than Mallampati 4, difficult intubation 9. Midline incision closed with incisional wound VAC system 20 cm, PREVENA 10. Patient hemodynamically stable following procedure after correction of bowel obstruction 11. Abdomen irrigated with 1.5 L normal saline until clear INDICATIONS: The patient is a 59-year-old gentleman who presented to the hospital with mechanical small bowel obstruction. Additionally, he developed acute blood loss anemia with acute upper gastrointestinal bleeding with hemorrhagic shock. Benefits, risks of procedure including bleeding, infection, small bowel resection were described in detail. Informed consent was obtained. He was brought emergently to the operating room. DESCRIPTION: The patient was brought to the operating room. Preoperatively he did have a nasogastric tube from the ICU. Fiberoptic intubation was performed per anesthesia secondary to difficult intubation, Mallampati 4+. Additional lines were placed per anesthesia. After general induction, a joy catheter was placed. The abdomen had been prepped and draped in standard sterile fashion including placement of Ioban draping. Prior to incision, a time-out protocol was confirmed with surgical team regarding the patient's name and procedures being performed. He was on scheduled IV antibiotics. Initial attention was brought to this previous cicatrix of the upper midline. A #10 blade was used to enter the previous incision and deepened into the subcutaneous tissue. Upon entry into the abdomen, lysis of adhesions were performed of greater omentum to the anterior abdominal wall using Bovie cautery. From the length of the incision, an adhesive band was found involving the small bowel just above the umbilicus. Next once the abdomen was entered, the bowel was investigated from the ligament of Treitz distally. Along the distal jejunum, a complete small bowel obstruction from adhesive band was identified and prepared for resection. Proximally, the small bowel was dilated. Distally the small bowel was completely decompressed. The abdomen was moderately distended including small bowel. As a result, an enterotomy along the antimesenteric border of the adhesive band was performed using cautery. The small bowel was milked proximally to distally with evacuation of 1.5 L of enteric contents. Adhesiolysis was performed. The focal narrowing also created a functional obstruction despite removing the peritoneal adhesion. As a results of this finding a small bowel section was proposed. The point of resection was along the distal jejunum. A 3-0 silk suture was placed along the antimesenteric border. Next the bowel was resected proximally and distally using a 60 mm Covidien appiah staple loads. The small bowel was dissected along its mesenteric using Enseal. Next enterotomies were made along the anti-mesenteric border and a stapler 60 mm purple load was fired to create neolumen. The enterotomy was closed using similar stapler load. The mesenteric defect was oversewn and closed using 3-0 silk. This was also performed to prevent internal hernias along this mesenteric defect. Please note, prior to small bowel resection, the rest of the small bowel had been investigated for any other intramucosal obstruction. The decompressed distal sm all bowel had been resolved with enteric contents leading into the colon. Prior to irrigation of the abdomen, an intraoperative upper endoscopy was performed. I went to the head of the bed. An Olympus gastroscope was passed along the posterior oropharynx into the stomach. Dark gastric contents were found into the stomach and fourth portion of the duodenum. The duodenum and stomach were irrigated with 100 mL normal saline. No active bleeding were found throughout the stomach. No ulcerations were identified throughout the stomach. Similarly, minimal bleeding from duodenitis was identified without any duodenal ulcers. The stomach was desufflated. The old nasogastric tube was removed for a larger caliber 18-gauge. An orogastric tube was placed per anesthesia, instead. I rescrubbed into the case. The abdomen was copiously irrigated with 2 L of warm normal saline solution until clear. Hemostasis had been checked. The abdomen had been closed using double-stranded 0-PDS. The subcutaneous tissue had been cleansed. Next, interrupted 3-0 Vicryl along the dermis was placed at the umbilicus. The rest of the incision was closed using stainless steel gerber. PREVENA incisional wound VAC system 20-cm was placed over the incision and applied to suction with complete seal. At the end of the procedure, the sponge and instrument count had been verified correct by the operating room surgical technician. The patient tolerated the procedure well and was brought to the anesthesia postanesthesia care unit in guarded condition. Intraabdominal findings were reviewed at length with the patient's family.
[2019-10-04] MEDS ORDERED: IPRATROPIUM-ALBUTEROL 3 ML NEB INHALATION PRN (19:21)
[2019-10-04] MEDS: PROPOFOL 1,000 MG in EMPTY BAG 1 BAG IV SCH ×2 (19:30→21:32)
--- NOTE | 2019-10-04 19:48 | XR ---
EXAMINATION TYPE: XR chest 1V DATE OF EXAM: 10/04/2019 COMPARISON: 10/04/2019 INDICATION: Intubation postop TECHNIQUE: Single frontal view of the chest is obtained. FINDINGS: The heart size is normal. The pulmonary vasculature is normal. Right upper lobe is atelectatic and collapsed. There is placement of an endotracheal tube with the ti p 4 cm above the ellen. Nasogastric tube transverses the thorax, tip is curled within the left upper quadrant of the abdomen. Within the left upper quadrant of the abdomen. IMPRESSION: 1. Right upper lobe atelectasis. 2. Lines and catheters discussed above.
[2019-10-04 20:10] LABS: ABG Base Excess 2.8 mmol/L; ABG HCO3 28 mmol/L (21-25); ABG PCO2 46 mmHg (35-45); ABG PH 7.39 (7.35-7.45); ABG PO2 171 mmHg (83-108); ABG TCO2 29 mmol/L (19-24)
[2019-10-04 20:14] LABS: Allen Test Performed? yes
[2019-10-04 20:14] LABS: HCT 40.8 % (39.0-53.0); Hypochromasia Slight; MCH 29.8 pg (25.0-35.0); MCHC 32.4 g/dL (31.0-37.0); MCV 91.9 fL (80.0-100.0); Mean Platelet Volume 8.7; Platelet Count 195 k/uL (150-450); RBC 4.44 m/uL (4.30-5.90); RDW 14.2 % (11.5-15.5); WBC 10.2 k/uL (3.8-10.6)
[2019-10-04 20:17] LABS: HGB 13.2 gm/dL (13.0-17.5)
[2019-10-04] MEDS: IPRATROPIUM-ALBUTEROL 3 ML NEB INHALATION SCH ×2 (20:17→23:42)
[2019-10-04] MEDS: fentaNYL (PF) 1,000 MCG in SODIUM CHLORIDE 0.9% 80 ML IV SCH (21:16)
[2019-10-04] MEDS ORDERED: SODIUM CHLORIDE 0.9% 1,000 ML IV ONE (21:29)
[2019-10-04] MEDS: CHLORHEXIDINE GLUCONATE 15 ML CUP MUCOUS MEM SCH (21:32)
[2019-10-04 23:32] LABS: Amorphous Sediment,Urine Many /hpf; Appearance,Urine Turbid (Clear); Bilirubin,Urine Negative (Negative); Blood,Urine Small (Negative); Color,Urine Yellow; Glucose,Urine (UA) Negative (Negative); Ketones,Urine Negative (Negative); Leukocyte Esterase,Urine Large (Negative); Nitrite,Urine Negative (Negative); PH, Urine 5.5 (5.0-8.0); Protein,Urine Trace (Negative); RBC,Urine 12 /hpf (0-5); Specific Gravity,Urine 1.036 (1.001-1.035); Urobilinogen,Urine <2.0 mg/dL (<2.0); WBC,Urine 49 /hpf (0-5)
[2019-10-05] MEDS: ENALAPRILAT 1.25 MG/ML 1 ML VIAL IVP PRN ×2 (00:06→17:23)
[2019-10-05] MEDS: SODIUM CHLORIDE 0.9% 1,000 ML IV SCH ×4 (00:55→22:58)
[2019-10-05] MEDS: MAG HYDROX/AL HYDROX/SIMETH 30 ML CUP PO SCH ×7 (01:04→23:42)
[2019-10-05] MEDS: PROPOFOL 1,000 MG in EMPTY BAG 1 BAG IV SCH ×4 (01:05→10:51)
[2019-10-05] MEDS: IPRATROPIUM-ALBUTEROL 3 ML NEB INHALATION SCH ×5 (03:08→20:49)
[2019-10-05] MEDS ORDERED: SODIUM CHLORIDE 0.9% 2,000 ML IV ONE (03:44)
[2019-10-05] MEDS: PIPERACILLIN-TAZOBACTAM 3.375 GM in SODIUM CHLORIDE 0.9% 100 ML IVPB SCH ×3 (03:56→19:34)
[2019-10-05] MEDS: fentaNYL (PF) 1,000 MCG in SODIUM CHLORIDE 0.9% 80 ML IV SCH ×2 (04:13→10:35)
[2019-10-05 05:21] LABS: ABG Base Excess 2.6 mmol/L; ABG HCO3 28 mmol/L (21-25); ABG PCO2 48 mmHg (35-45); ABG PH 7.37 (7.35-7.45); ABG PO2 86 mmHg (83-108); ABG TCO2 29 mmol/L (19-24); Allen Test Performed? Yes
[2019-10-05 05:41] LABS: Basophils % (A) 0 %; Eosinophils % (A) 0 %; HCT 34.1 % (39.0-53.0); HGB 10.7 gm/dL (13.0-17.5); Lymphocytes # (A) 0.5 k/uL (1.0-4.8); Lymphocytes % (A) 7 %; MCH 28.1 pg (25.0-35.0); MCHC 31.3 g/dL (31.0-37.0); MCV 89.7 fL (80.0-100.0); Mean Platelet Volume 8.7; Monocytes # (A) 0.7 k/uL (0-1.0); Monocytes % (A) 9 %; Neutrophils # (A) 6.2 k/uL (1.3-7.7); Neutrophils % (A) 81 %; Platelet Count 199 k/uL (150-450); RDW 14.7 % (11.5-15.5); WBC 7.7 k/uL (3.8-10.6)
[2019-10-05 05:51] LABS: Magnesium 2.6 mg/dL (1.6-2.3); Phosphorus 2.9 mg/dL (2.5-4.5); Potassium 4.5 mmol/L (3.5-5.1)
[2019-10-05 05:56] LABS: Glucose,Whole Blood 111 mg/dL (75-99)
--- NOTE | 2019-10-05 06:00 | XR ---
EXAMINATION TYPE: XR chest 1V portable DATE OF EXAM: 10/05/2019 HISTORY: Tube placement. REFERENCE: Previous study dated 10/04/2019. FINDINGS: The patient's ET tube and NG tube remain in place, unchanged in appearance. Aeration of the right upper lobe is mildly improved. There continues to be significant right upper lo be atelectasis. The left lung appears clear. The heart is mildly enlarged. Pleural spaces are clear. IMPRESSION: MINIMAL IMPROVEMENT IN THE RIGHT UPPER LOBE ATELECTASIS.
[2019-10-05] MEDS: HYDROmorphone 1 MG/ML 1 ML SYRINGE IVP PRN ×5 (07:54→22:39)
[2019-10-05] MEDS: CHLORHEXIDINE GLUCONATE 15 ML CUP MUCOUS MEM SCH ×2 (09:40→19:25)
[2019-10-05] MEDS: PANTOPRAZOLE 40 MG/10 ML VIAL IVP SCH ×2 (09:40→19:34)
--- NOTE | 2019-10-05 10:21 | P.PN ---
Subjective Progress Note Date: 10/05/19 Principal diagnosis: Small bowel obstruction Patient remains on the ventilator after last evening's exploratory laparotomy with small bowel resection. Brown colored nasogastric output. No gross blood evident. T-max 99.4. Heart rate in the low 100s. White blood cell count 7.7 hemoglobin 10.7. Patient remains distended. Objective - Vital Signs Vital signs: Vital Signs Temp 99.2 F 10/05/19 08:00 Pulse 101 H 10/05/19 09:00 Resp 14 10/05/19 09:00 BP 124/76 10/05/19 09:00 Pulse Ox 99 10/05/19 09:00 Intake & Output 10/04/19 10/05/19 10/05/19 18:59 06:59 18:59 Intake Total 4290 5175.162 571.515 Output Total 3000 960 175 Balance 1290 4215.162 396.515 Weight 108.1 kg Intake: IV 3050 4825 475 Fluid Bolus 3000 Sodium Chloride 0.9% 1, 1350 1650 450 000 ml @ 150 mls/hr IV . Q6H40M [facility] Rx#:[id number] Zosyn 175 25 Intake, IV Titration 350.162 96.515 Amount Propofol 1,000 mg In 260.695 96.515 Empty Bag 1 bag @ Titrate IV .Q0M [facility] Rx#: [id number] fentaNYL (PF) 1,000 mcg 89.467 In Sodium Chloride 0.9% 80 ml @ Per Protocol IV . Q0M [facility] Rx#:[id number] Blood Product 1240 Rc As-1 Unit 310 [id number] Rc Cpda-1 Unit 310 [id number] Output: Gastric Drainage 1350 350 Drainage 0 0 Medial Abdomen 0 0 Urine 700 560 175 Emesis 900 Oral Regurgitation 50 Estimated Blood Loss 50 Other: Voiding Method Urinal Indwelling Catheter Indwelling Catheter # Voids 0 - Exam Abdomen: Somewhat firm, distended, mild tenderness, dressing clean and dry - Labs CBC & Chem 7: 10/05/19 05:26 10/05/19 05:26 Labs: Abnormal Lab Results - Last 24 Hours (Table) 10/03/19 10/04/19 10/04/19 Range/Units 19:32 12:23 19:05 RBC 2.43 L (4.30-5.90) m/uL Hgb 7.3 L D (13.0-17.5) gm/dL Hct 22.6 L (39.0-53.0) % Lymphocytes # 0.8 L (1.0-4.8) k/uL ABG pCO2 (35-45) mmHg ABG pO2 (83-108) mmHg ABG HCO3 (21-25) mmol/L ABG Total CO2 (19-24) mmol/L ABG O2 Saturation (94-97) % Chloride (98-107) mmol/L BUN (9-20) mg/dL Glucose (74-99) mg/dL POC Glucose (mg/dL) 140 H (75-99) mg/dL Calcium (8.4-10.2) mg/dL Magnesium (1.6-2.3) mg/dL Ur Specific Merkel (1.001-1.035) Urine Protein (Negative) Urine Blood (Negative) Ur Leukocyte Esterase (Negative) Urine RBC (0-5) /hpf Urine WBC (0-5) /hpf Amorphous Sediment (None) /hpf Crossmatch See Detail 10/04/19 10/04/19 10/05/19 Range/Units 20:03 23:15 05:15 RBC (4.30-5.90) m/uL Hgb (13.0-17.5) gm/dL Hct (39.0-53.0) % Lymphocytes # (1.0-4.8) k/uL ABG pCO2 46 H 48 H (35-45) mmHg ABG pO2 171 H (83-108) mmHg ABG HCO3 28 H 28 H (21-25) mmol/L ABG Total CO2 29 H 29 H (19-24) mmol/L ABG O2 Saturation 99.0 H (94-97) % Chloride (98-107) mmol/L BUN (9-20) mg/dL Glucose (74-99) mg/dL POC Glucose (mg/dL) (75-99) mg/dL Calcium (8.4-10.2) mg/dL Magnesium (1.6-2.3) mg/dL Ur Specific Merkel 1.036 H (1.001-1.035) Urine Protein Trace H (Negative) Urine Blood Small H (Negative) Ur Leukocyte Esterase Large H (Negative) Urine RBC 12 H (0-5) /hpf Urine WBC 49 H (0-5) /hpf Amorphous Sediment Many H (None) /hpf Crossmatch 10/05/19 10/05/19 10/05/19 Range/Units 05:26 05:26 05:54 RBC 3.80 L (4.30-5.90) m/uL Hgb 10.7 L (13.0-17.5) gm/dL Hct 34.1 L (39.0-53.0) % Lymphocytes # 0.5 L (1.0-4.8) k/uL ABG pCO2 (35-45) mmHg ABG pO2 (83-108) mmHg ABG HCO3 (21-25) mmol/L ABG Total CO2 (19-24) mmol/L ABG O2 Saturation (94-97) % Chloride 113 H (98-107) mmol/L BUN 24 H (9-20) mg/dL Glucose 120 H (74-99) mg/dL POC Glucose (mg/dL) 111 H (75-99) mg/dL Calcium 8.0 L (8.4-10.2) mg/dL Magnesium 2.6 H (1.6-2.3) mg/dL Ur Specific Merkel (1.001-1.035) Urine Protein (Negative) Urine Blood (Negative) Ur Leukocyte Esterase (Negative) Urine RBC (0-5) /hpf Urine WBC (0-5) /hpf Amorphous Sediment (None) /hpf Crossmatch Assessment and Plan (1) Small bowel obstruction Narrative/Plan: Patient stable on the ventilator currently. Remains distended. Continue nothing by mouth with gastric tube to suction. Continue ventilatory support. Await return bowel function. Current Visit: Yes Status: Acute Code(s): K56.609 - UNSP INTESTNL OBST, UNSP TO PARTIAL VERSUS COMPLETE OBST SNOMED Code(s): 341135496
--- NOTE | 2019-10-05 11:00 | P.PN ---
Subjective Progress Note Date: 10/05/19 This is a very pleasant 59-year-old male patient with has both yesterday because of small bowel obstruction. The patient has history of peptic ulcer disease and the patient has undergone previous gastric surgery for a bleeding ulcer back in the 90s. He came in with abdominal pain and distention of a few days duration. He was unable to pass any bowel movements or flatus. No reported diarrhea. He was having nausea and emesis. He was admitted for small bowel obstruction. NG tube was placed in the emergency department. Approximately 400 mL of drainage was immediately obtained. A CAT scan of the abdomen was also done that showed and confirmed the presence of small bowel obstruction. There was bilateral small bowel consistent with mechanical small bowel obstruction at the level of the distal jejunum or proximal ileum. Obstruction was no compared to the old examination. Yesterday afternoon, the patient a chest to the intensive care unit as the patient started having coffee-ground material coming out of the NG. He also was having episodic hematemesis. The patient vomited approximately 5 mL of blood. The patient was given a total of 4 L of IV fluids. The patient's hemoglobin dropped from a baseline of 17.6 down to 11.5 this morning. His last bout of emesis of blood was earlier this morning. Gen. surgery was informed that the patient will be having a gastroscopy. Meanwhile, the patient claims that his been passing some flatus today. NG tube still in place. Abdomen is di stended. It's less tender compared to yesterday and the patient is receiving morphine 4 mg every 3 hours for pain control and addition to Dilaudid 1 mg every 3 hours for pain control. He is on IV fluids running at 150 mL an hour of normal saline. General surgeries on the case. Is covered with IV Zosyn. The white cell count is not elevated. His lactic acid level started about 2.4 and dropped down to 1.6. Calcium is at 9.1. On 10/05/2019 the patient is postop day #1. The patient was taken to the operating room yesterday for an upper GI bleed and small bowel obstruction. The patient was found to have adhesion and complete small bowel obstruction and strangulation addition to diffuse gastric bleeding. He underwent expiratory laparotomy and small bowel resection with 5 cm of distal jejunum resected. He also underwent small bowel enterotomy and drainage of small bowel contents of 1 .5 L and peritoneal abdominal washout of 2 L and intraoperative EGD with gastric irrigation. The patient postop was kept intubated and was moved to the intensive care unit. I was told that he was a very difficult intubation and fiberoptic sent to be used. Post op chest x-ray showed right upper lobe atelectasis with seems to be improving on today's chest x-ray. He has excessive respiratory secretions. This morning, he remains on assist control mode at the rate of 14 with a tidal volume of 500 and FiO2 of 50% with a PEEP of 5. He is on normal saline at the rate of 150 mL an hour. His was sedated with propofol at 50 mics and is also on 1.5 g per KG per minute of fentanyl infusion. He is not requiring any pressors. His cardiac rhythm is sinus. NG tube in place and output has been in the order of 100 mL since he arrived from the operating room. Abdominal wound is clean and intact and the patient has a VAC system, PREVENA in place. No direct. His current hemoglobin is stable at 10.7. The patient received a total of 1 units of packed RBC as the patient was having significant blood loss. The antibiotic coverage remain the same and the patient is on IV Zosyn. His is having Dilaudid for pain control. Objective - Vital Signs Vital signs: Vital Signs Temp 99.2 F 10/05/19 08:00 Pulse 101 H 10/05/19 09:00 Resp 14 10/05/19 09:00 BP 124/76 10/05/19 09:00 Pulse Ox 99 10/05/19 09:00 Intake & Output 10/04/19 10/05/19 10/05/19 18:59 06:59 18:59 Intake Total 4290 5175.162 755.093 Output Total 3000 960 175 Balance 1290 4215.162 580.093 Weight 108.1 kg Intake: IV 3050 4825 475 Fluid Bolus 3000 Sodium Chloride 0.9% 1, 1350 1650 450 000 ml @ 150 mls/hr IV . Q6H40M [facility] Rx#:[id number] Zosyn 175 25 Intake, IV Titration 350.162 280.093 Amount Propofol 1,000 mg In 260.695 185.070 Empty Bag 1 bag @ Titrate IV .Q0M [facility] Rx#: [id number] fentaNYL (PF) 1,000 mcg 89.467 95.023 In Sodium Chloride 0.9% 80 ml @ Per Protocol IV . Q0M [facility] Rx#:[id number] Blood Product 1240 Rc As-1 Unit 310 [id number] Rc Cpda-1 Unit 310 [id number] Output: Gastric Drainage 1350 350 Drainage 0 0 Medial Abdomen 0 0 Urine 700 560 175 Emesis 900 Oral Regurgitation 50 Estimated Blood Loss 50 Other: Voiding Method Urinal Indwelling Catheter Indwelling Catheter # Voids 0 - Exam Gen. appearance sedated, comfortable likely distress intubated on a mechanical ventilator. Orogastric and orotracheal tube are both in place. Head exam was generally normal. There was no scleral icterus or corneal arcus. Mucous membranes were moist. Neck was supple and without jugular venous distension, thyromegaly, or carotid bruits. Carotids were easily palpable bilaterally. There was no adenopathy. Orogastric and orotracheal tube are both in place. No goiter or neck masses. Lungs sounds are diminished and there is scattered rhonchi heard throughout the lung saravia bilaterally. Cardiac exam revealed the PMI to be normally situated and sized. The rhythm was regular and no extrasystoles were noted during several minutes of auscultation. The first and second heart sounds were normal and physiologic splitting of the second heart sound was noted. There were no murmurs, rubs, clicks, or gallops. Abdomen is distended soft. No direct tenderness. No rebound tenderness or guarding. Bowel sounds are hypoactive. There is a VAC system covering the abdominal wound and that is no active drainage at this point in time. No organomegaly. Extremities revealed trace edema and there is no cyanosis or clubbing. Neurologically the patient is sedated but he can easily aroused out of his sedation despite being on a combination of propofol and fentanyl. - Labs CBC & Chem 7: 10/05/19 05:26 10/05/19 05:26 Labs: Abnormal Lab Results - Last 24 Hours (Table) 10/03/19 10/04/19 10/04/19 Range/Units 19:32 12:23 19:05 RBC 2.43 L (4.30-5.90) m/uL Hgb 7.3 L D (13.0-17.5) gm/dL Hct 22.6 L (39.0-53.0) % Lymphocytes # 0.8 L (1.0-4.8) k/uL ABG pCO2 (35-45) mmHg ABG pO2 (83-108) mmHg ABG HCO3 (21-25) mmol/L ABG Total CO2 (19-24) mmol/L ABG O2 Saturation (94-97) % Chloride (98-107) mmol/L BUN (9-20) mg/dL Glucose (74-99) mg/dL POC Glucose (mg/dL) 140 H (75-99) mg/dL Calcium (8.4-10.2) mg/dL Magnesium (1.6-2.3) mg/dL Ur Specific [place] (1.001-1.035) Urine Protein (Negative) Urine Blood (Negative) Ur Leukocyte Esterase (Negative) Urine RBC (0-5) /hpf Urine WBC (0-5) /hpf Amorphous Sediment (None) /hpf Crossmatch See Detail 10/04/19 10/04/19 10/05/19 Range/Units 20:03 23:15 05:15 RBC (4.30-5.90) m/uL Hgb (13.0-17.5) gm/dL Hct (39.0-53.0) % Lymphocytes # (1.0-4.8) k/uL ABG pCO2 46 H 48 H (35-45) mmHg ABG pO2 171 H (83-108) mmHg ABG HCO3 28 H 28 H (21-25) mmol/L ABG Total CO2 29 H 29 H (19-24) mmol/L ABG O2 Saturation 99.0 H (94-97) % Chloride (98-107) mmol/L BUN (9-20) mg/dL Glucose (74-99) mg/dL POC Glucose (mg/dL) (75-99) mg/dL Calcium (8.4-10.2) mg/dL Magnesium (1.6-2.3) mg/dL Ur Specific [place] 1.036 H (1.001-1.035) Urine Protein Trace H (Negative) Urine Blood Small H (Negative) Ur Leukocyte Esterase Large H (Negative) Urine RBC 12 H (0-5) /hpf Urine WBC 49 H (0-5) /hpf Amorphous Sediment Many H (None) /hpf Crossmatch 10/05/19 10/05/19 10/05/19 Range/Units 05:26 05:26 05:54 RBC 3.80 L (4.30-5.90) m/uL Hgb 10.7 L (13.0-17.5) gm/dL Hct 34.1 L (39.0-53.0) % Lymphocytes # 0.5 L (1.0-4.8) k/uL ABG pCO2 (35-45) mmHg ABG pO2 (83-108) mmHg ABG HCO3 (21-25) mmol/L ABG Total CO2 (19-24) mmol/L ABG O2 Saturation (94-97) % Chloride 113 H (98-107) mmol/L BUN 24 H (9-20) mg/dL Glucose 120 H (74-99) mg/dL POC Glucose (mg/dL) 111 H (75-99) mg/dL Calcium 8.0 L (8.4-10.2) mg/dL Magnesium 2.6 H (1.6-2.3) mg/dL Ur Specific Rio (1.001-1.035) Urine Protein (Negative) Urine Blood (Negative) Ur Leukocyte Esterase (Negative) Urine RBC (0-5) /hpf Urine WBC (0-5) /hpf Amorphous Sediment (None) /hpf Crossmatch Microbiology - Last 24 Hours (Table) 10/04/19 23:15 Urine Culture - Preliminary Urine,Clean Catch 10/05/19 00:00 Sputum Culture - Preliminary Sputum Assessment and Plan Plan: 1 small bowel obstruction. The patient is postop day #1 following expiratory laparotomy with small bowel resection where 5 cm of the distal jejunum was resected and the patient underwent also small bowel enterotomy with drainage of 1.5 L of small bowel content and 13 abdominal washout. 2 L of fluid was irrigated and the patient also underwent an EGD. 2 upper GI bleed as the patient had coffee-ground emesis and subsequent bright red blood emesis. The patient underwent an EGD and there was no evidence of any gastric ulcers identified and duodenum showed diffuse was without active du odenal bleeding and the duodenum and the stomach was irrigated with saline. NG tube is in place and there is no active bleeding at this point in time. The patient received a unit of packed RBC postop. 3 previous history of peptic ulcer disease with perforation of peptic ulcer back in 1990 4 acute hypoxic respiratory failure following abdominal surgery. The patient remains intubated on a mechanical ventilator. 5 right upper lobe atelectasis, postop, likely secondary to respiratory secretions and atelectasis is improving. 6 hyperlipidemia 7 previous history of peptic ulcer disease requiring surgery 8 history of colonic polyps Plan Continue IV fluids at the rate of 150 mL an hour normal saline IV Protonix IV Zosyn Keep NG tube in place Morphine for pain control The patient has developed a right upper lobe atelectasis. He is having also significant rest or secretions. He has been a difficult intubation. I'm going to be conservative in his extubation. I'm going to give him a sedation holiday, check his weaning parameters, check his spontaneous breathing trial and his c andidacy for further weaning and possible exhibition will be evaluated within next few hours. His sedation is being gradually weaned off for now. Monitor hemoglobin Condition is critical and I'm willing to coordinate the care with general surgery. May possibly remove the OG-tube at time of extubation. If needed, and NG tube will be inserted. Give the patient ICU for now we'll continue to follow make further recommendations based on his progress. This evaluation was on a more than 30 minutes. Time with Patient: Greater than 30
[2019-10-05 11:53] LABS: Glucose,Whole Blood 101 mg/dL (75-99)
[2019-10-05 12:00] LABS: ABG Base Excess 2.7 mmol/L; ABG HCO3 28 mmol/L (21-25); ABG Oxygen Saturation 95.3 % (94-97); ABG PCO2 48 mmHg (35-45); ABG PH 7.37 (7.35-7.45); ABG PO2 80 mmHg (83-108); ABG TCO2 29 mmol/L (19-24); Allen Test Performed? Yes
--- NOTE | 2019-10-05 12:32 | P.PN ---
Subjective Progress Note Date: 10/05/19 (Status post abdominal exploratory with the acute bowel obstruction.) This is a progressive note date of service 10/05/2019. Patient seen and evaluated in ICU, Patient intubated with the process for weaning post operative with the exploratory laparotomy, Small bowel obstruction with the upper GI bleeding and blood loss and drop to 7 he received 1 units of packed RBCs so far. Postoperative diffuse bleeding gastritis, adhesive band disease with complete small bowel obstruction and strangulation. With the procedure indicating exploratory laparotomy with a small bowel resection 5 cm of distal jejunum. Small bowel enterotomy with drainage of small bowel content 1.5 L. Peritoneal abdominal lavage fluid with 2 L Intraoperative upper endoscopy with irrigation with [address] Sanchez. With the finding indicating complete small bowel obstruction with strangulation due to adhesive band from previous lower midline incision which was done previously for perforated peptic ulcer. Small bowel decompressed 1.5 L of enteric content evacuated from the abdominal closure. Upper endoscopy demonstrated diffuse bleeding gastritis. No evidence of gastric ulcer identified during the endoscopy. Duodenum was diffuse oozing without active duodenal ulcer identified. Duodenal and the stomach irrigated with 100 mL of saline. Nasogastric tube changed over the upper endoscopy. Midline incision and closed with incisional wound VAC system 25 cm Abdominal irrigation was 1.5 L normal saline until clear. Patient seen today in ICU, Conscious alert he is intubated with the process of weaning he had NG tube with the returning acid Hemotene with the nasogastric suction. pulmonary and critical care saw him today monitoring his ABGs as well and planning for weaning him off. Dr. Perry surgeon did see the patient toda vital signs today stable with blood pressure 128/74. HEENT negative Neck was supple no JVD no thyromegaly. Chest he has been intubated during the surgery yesterday and weaning process no evidence of associated complication with the good breath sounds bilaterally. Heart regular sinus rhythm with the blood pressure stable. The abdomen silent status post exploratory laparotomy and the patient still nothing by mouth with NG tube. And he had Tavarez catheter. Lower extremities with a thrombotic stocking and he has been monitored with the IC U protocol and Dr. Abreu. Laboratories today on 10/05/2019: His white count 7.7, hemoglobin 10.7 and received 1 units of packed RBCs. ABGs indicating pH of 7.37 his pCO2 48, PaO2 80, HCO3 28 and total CO2 29, oxygen saturation 95.3 Sodium 142, potassium 4.5, BUN 24, creatinine 1.07 and estimated GFR 87 with -Latvian and blood glucose has been monitored as well and within limits his calcium is 8 and the phosphorus 2.9 and magnesium 2.6. Urine culture pending and sputum culture is pending Assessment Critical with the status post exploratory laparotomy with the underlying small bowel obstruction in the ICU with the above-mentioned diagnosis and procedure Plan continuing the current treatment and will follow. Objective - Vital Signs Vital signs: Vital Signs Temp 99.2 F 10/05/19 08:00 Pulse 105 H 10/05/19 11:20 Resp 14 10/05/19 11:00 BP 128/74 10/05/19 11:00 Pulse Ox 99 10/05/19 10:00 Intake & Output 10/04/19 10/05/19 10/05/19 18:59 06:59 18:59 Intake Total 4290 5175.162 1134.197 Output Total 3000 960 300 Balance 1290 4215.162 834.197 Weight 108.1 kg Intake: IV 3050 4825 825 Fluid Bolus 3000 Sodium Chloride 0.9% 1, 1350 1650 750 000 ml @ 150 mls/hr IV . Q6H40M [facility] Rx#:[id number] Zosyn 175 75 Intake, IV Titration 350.162 309.197 Amount Propofol 1,000 mg In 260.695 201.985 Empty Bag 1 bag @ Titrate IV .Q0M [facility] Rx#: [id number] fentaNYL (PF) 1,000 mcg 89.467 107.212 In Sodium Chloride 0.9% 80 ml @ Per Protocol IV . Q0M [facility] Rx#:[id number] Blood Product 1240 Rc As-1 Unit 310 [id number] Rc Cpda-1 Unit 310 [id number] Output: Gastric Drainage 1350 350 Drainage 0 0 Medial Abdomen 0 0 Urine 700 560 300 Emesis 900 Oral Regurgitation 50 Estimated Blood Loss 50 Other: Voiding Method Urinal Indwelling Catheter Indwelling Catheter # Voids 0 - Labs CBC & Chem 7: 10/05/19 05:26 10/05/19 05:26 Labs: Abnormal Lab Results - Last 24 Hours (Table) 10/03/19 10/04/19 10/04/19 Range/Units 19:32 12:23 19:05 RBC 2.43 L (4.30-5.90) m/uL Hgb 7.3 L D (13.0-17.5) gm/dL Hct 22.6 L (39.0-53.0) % Lymphocytes # 0.8 L (1.0-4.8) k/uL ABG pCO2 (35-45) mmHg ABG pO2 (83-108) mmHg ABG HCO3 (21-25) mmol/L ABG Total CO2 (19-24) mmol/L ABG O2 Saturation (94-97) % Chloride (98-107) mmol/L BUN (9-20) mg/dL Glucose (74-99) mg/dL POC Glucose (mg/dL) 140 H (75-99) mg/dL Calcium (8.4-10.2) mg/dL Magnesium (1.6-2.3) mg/dL Ur Specific Hinkley (1.001-1.035) Urine Protein (Negative) Urine Blood (Negative) Ur Leukocyte Esterase (Negative) Urine RBC (0-5) /hpf Urine WBC (0-5) /hpf Amorphous Sediment (None) /hpf Crossmatch See Detail 10/04/19 10/04/19 10/05/19 Range/Units 20:03 23:15 05:15 RBC (4.30-5.90) m/uL Hgb (13.0-17.5) gm/dL Hct (39.0-53.0) % Lymphocytes # (1.0-4.8) k/uL ABG pCO2 46 H 48 H (35-45) mmHg ABG pO2 171 H (83-108) mmHg ABG HCO3 28 H 28 H (21-25) mmol/L ABG Total CO2 29 H 29 H (19-24) mmol/L ABG O2 Saturation 99.0 H (94-97) % Chloride (98-107) mmol/L BUN (9-20) mg/dL Glucose (74-99) mg/dL POC Glucose (mg/dL) (75-99) mg/dL Calcium (8.4-10.2) mg/dL Magnesium (1.6-2.3) mg/dL Ur Specific Hinkley 1.036 H (1.001-1.035) Urine Protein Trace H (Negative) Urine Blood Small H (Negative) Ur Leukocyte Esterase Large H (Negative) Urine RBC 12 H (0-5) /hpf Urine WBC 49 H (0-5) /hpf Amorphous Sediment Many H (None) /hpf Crossmatch 10/05/19 10/05/19 10/05/19 Range/Units 05:26 05:26 05:54 RBC 3.80 L (4.30-5.90) m/uL Hgb 10.7 L (13.0-17.5) gm/dL Hct 34.1 L (39.0-53.0) % Lymphocytes # 0.5 L (1.0-4.8) k/uL ABG pCO2 (35-45) mmHg ABG pO2 (83-108) mmHg ABG HCO3 (21-25) mmol/L ABG Total CO2 (19-24) mmol/L ABG O2 Saturation (94-97) % Chloride 113 H (98-107) mmol/L BUN 24 H (9-20) mg/dL Glucose 120 H (74-99) mg/dL POC Glucose (mg/dL) 111 H (75-99) mg/dL Calcium 8.0 L (8.4-10.2) mg/dL Magnesium 2.6 H (1.6-2.3) mg/dL Ur Specific Hinkley (1.001-1.035) Urine Protein (Negative) Urine Blood (Negative) Ur Leukocyte Esterase (Negative) Urine RBC (0-5) /hpf Urine WBC (0-5) /hpf Amorphous Sediment (None) /hpf Crossmatch 10/05/19 10/05/19 Range/Units 11:51 11:58 RBC (4.30-5.90) m/uL Hgb (13.0-17.5) gm/dL Hct (39.0-53.0) % Lymphocytes # (1.0-4.8) k/uL ABG pCO2 48 H (35-45) mmHg ABG pO2 80 L (83-108) mmHg ABG HCO3 28 H (21-25) mmol/L ABG Total CO2 29 H (19-24) mmol/L ABG O2 Saturation (94-97) % Chloride (98-107) mmol/L BUN (9-20) mg/dL Glucose (74-99) mg/dL POC Glucose (mg/dL) 101 H (75-99) mg/dL Calcium (8.4-10.2) mg/dL Magnesium (1.6-2.3) mg/dL Ur Specific Hinkley (1.001-1.035) Urine Protein (Negative) Urine Blood (Negative) Ur Leukocyte Esterase (Negative) Urine RBC (0-5) /hpf Urine WBC (0-5) /hpf Amorphous Sediment (None) /hpf Crossmatch Microbiology - Last 24 Hours (Table) 10/04/19 23:15 Urine Culture - Preliminary Urine,Clean Catch 10/05/19 00:00 Sputum Culture - Preliminary Sputum
[2019-10-05] MEDS: MORPHINE SULFATE 4 MG/ML SYRINGE IV PRN ×2 (13:20→20:43)
[2019-10-05 17:35] LABS: Glucose,Whole Blood 88 mg/dL (75-99)
[2019-10-05 23:56] LABS: Glucose,Whole Blood 100 mg/dL (75-99)
[2019-10-06] MEDS: IPRATROPIUM-ALBUTEROL 3 ML NEB INHALATION SCH ×7 (00:17→23:32)
[2019-10-06] MEDS: HYDROmorphone 1 MG/ML 1 ML SYRINGE IVP PRN ×6 (01:04→19:55)
[2019-10-06] MEDS: MORPHINE SULFATE 4 MG/ML SYRINGE IV PRN ×3 (01:04→10:05)
[2019-10-06] MEDS: MAG HYDROX/AL HYDROX/SIMETH 30 ML CUP PO SCH ×4 (04:00→19:28)
[2019-10-06] MEDS: PIPERACILLIN-TAZOBACTAM 3.375 GM in SODIUM CHLORIDE 0.9% 100 ML IVPB SCH ×3 (04:09→19:55)
[2019-10-06 05:28] LABS: Basophils % (A) 0 %; Eosinophils % (A) 1 %; HGB 10.5 gm/dL (13.0-17.5); Hypochromasia Slight; Lymphocytes # (A) 0.8 k/uL (1.0-4.8); Lymphocytes % (A) 12 %; MCH 29.8 pg (25.0-35.0); MCHC 32.8 g/dL (31.0-37.0); MCV 90.9 fL (80.0-100.0); Mean Platelet Volume 8.6; Monocytes # (A) 0.7 k/uL (0-1.0); Monocytes % (A) 11 %; Neutrophils # (A) 4.8 k/uL (1.3-7.7); Neutrophils % (A) 73 %; Platelet Count 195 k/uL (150-450); RBC 3.52 m/uL (4.30-5.90); RDW 14.3 % (11.5-15.5); WBC 6.6 k/uL (3.8-10.6)
[2019-10-06 05:36] LABS: Glucose,Whole Blood 93 mg/dL (75-99)
[2019-10-06 05:44] LABS: African American GFR (CKD) >90 (>60 ml/min/1.73 sqM); Anion Gap 5 mmol/L; Blood Urea Nitrogen 16 mg/dL (9-20); Calcium 9.2 mg/dL (8.4-10.2); Carbon Dioxide 25 mmol/L (22-30); Chloride 109 mmol/L (98-107); Glucose 96 mg/dL (74-99); Non-African American GFR(CKD) 82 (>60 ml/min/1.73 sqM); Potassium 4.1 mmol/L (3.5-5.1); Sodium 139 mmol/L (137-145)
[2019-10-06] MEDS: SODIUM CHLORIDE 0.9% 1,000 ML IV SCH ×3 (05:44→17:50)
--- NOTE | 2019-10-06 06:09 | XR ---
EXAMINATION TYPE: XR chest 1V portable DATE OF EXAM: 10/06/2019 HISTORY: Tube placement. REFERENCE: Previous study dated 10/05/2019. FINDINGS: Further clearing of the right upper lobe atelectasis. Plate like atelectasis persists in both upper l obes. The patient has been extubated. NG tube is been removed. Heart size is within normal limits. Pl eural spaces are clear. IMPRESSION: 1. IMPROVED AERATION OF THE RIGHT UPPER LOBE. 2. PERSISTENT PLATELIKE ATELECTASIS BOTH UPPER LOBES.
[2019-10-06] MEDS: PANTOPRAZOLE 40 MG/10 ML VIAL IVP SCH ×2 (08:17→19:55)
--- NOTE | 2019-10-06 10:35 | P.PN ---
Subjective Progress Note Date: 10/06/19 Principal diagnosis: Small bowel obstruction Patient doing well today. He was extubated. T-max 99.3. Heart rate 100-110. White blood cell count 6.6, hemoglobin 10.5. Denies nausea or vomiting. Gastric tube is out. Complaining of some abdominal discomfort and bloating. Objective - Vital Signs Vital signs: Vital Signs Temp 99.0 F 10/06/19 08:00 Pulse 109 H 10/06/19 09:00 Resp 15 10/06/19 09:00 BP 154/93 10/06/19 09:00 Pulse Ox 98 10/06/19 09:00 Intake & Output 10/05/19 10/06/19 10/06/19 18:59 06:59 18:59 Intake Total 4650.248 9810 300 Output Total 995 1360 300 Balance 948.950 590 0 Weight 110.2 kg Intake: IV 1625 1950 300 Sodium Chloride 0.9% 1, 1500 1950 300 000 ml @ 150 mls/hr IV . Q6H40M [facility] Rx#:[id number] Zosyn 125 Intake, IV Titration 318.950 Amount Propofol 1,000 mg In 205.768 Empty Bag 1 bag @ Titrate IV .Q0M [facility] Rx#: [id number] fentaNYL (PF) 1,000 mcg 113.182 In Sodium Chloride 0.9% 80 ml @ Per Protocol IV . Q0M [facility] Rx#:[id number] Output: Drainage 0 0 Medial Abdomen 0 0 Urine 995 1360 300 Other: Voiding Method Indwelling Catheter Indwelling Catheter Indwelling Catheter - Exam Abdomen: Soft, distended, mild tenderness, dressing clean and dry - Labs CBC & Chem 7: 10/06/19 04:38 10/06/19 04:38 Labs: Abnormal Lab Results - Last 24 Hours (Table) 10/05/19 10/05/19 10/05/19 Range/Units 11:51 11:58 23:54 RBC (4.30-5.90) m/uL Hgb (13.0-17.5) gm/dL Hct (39.0-53.0) % Lymphocytes # (1.0-4.8) k/uL ABG pCO2 48 H (35-45) mmHg ABG pO2 80 L (83-108) mmHg ABG HCO3 28 H (21-25) mmol/L ABG Total CO2 29 H (19-24) mmol/L Chloride (98-107) mmol/L POC Glucose (mg/dL) 101 H 100 H (75-99) mg/dL 10/06/19 10/06/19 Range/Units 04:38 04:38 RBC 3.52 L (4.30-5.90) m/uL Hgb 10.5 L (13.0-17.5) gm/dL Hct 32.0 L (39.0-53.0) % Lymphocytes # 0.8 L (1.0-4.8) k/uL ABG pCO2 (35-45) mmHg ABG pO2 (83-108) mmHg ABG HCO3 (21-25) mmol/L ABG Total CO2 (19-24) mmol/L Chloride 109 H (98-107) mmol/L POC Glucose (mg/dL) (75-99) mg/dL Microbiology - Last 24 Hours (Table) 10/05/19 00:00 Gram Stain - Preliminary Sputum Sputum Culture - Preliminary 10/04/19 23:15 Urine Culture - Preliminary Urine,Clean Catch Assessment and Plan (1) Small bowel obstruction Narrative/Plan: Keep patient nothing by mouth except for ice chips. Add Toradol and over meds for pain control. If nausea and vomiting develop placed nasogastric tube. Current Visit: Yes Status: Acute Code(s): K56.609 - UNSP INTESTNL OBST, UNSP TO PARTIAL VERSUS COMPLETE OBST SNOMED Code(s): 658482999
--- NOTE | 2019-10-06 11:23 | P.PN ---
Subjective Progress Note Date: 10/06/19 This is a very pleasant 59-year-old male patient with has both yesterday because of small bowel obstruction. The patient has history of peptic ulcer disease and the patient has undergone previous gastric surgery for a bleeding ulcer back in the 90s. He came in with abdominal pain and distention of a few days duration. He was unable to pass any bowel movements or flatus. No reported diarrhea. He was having nausea and emesis. He was admitted for small bowel obstruction. NG tube was placed in the emergency department. Approximately 400 mL of drainage was immediately obtained. A CAT scan of the abdomen was also done that showed and confirmed the presence of small bowel obstruction. There was bilateral small bowel consistent with mechanical small bowel obstruction at the level of the distal jejunum or proximal ileum. Obstruction was no compared to the old examination. Yesterday afternoon, the patient a chest to the intensive care unit as the patient started having coffee-ground material coming out of the NG. He also was having episodic hematemesis. The patient vomited approximately 5 mL of blood. The patient was given a total of 4 L of IV fluids. The patient's hemoglobin dropped from a baseline of 17.6 down to 11.5 this morning. His last bout of emesis of blood was earlier this morning. Gen. surgery was informed that the patient will be having a gastroscopy. Meanwhile, the patient claims that his been passing some flatus today. NG tube still in place. Abdomen is di stended. It's less tender compared to yesterday and the patient is receiving morphine 4 mg every 3 hours for pain control and addition to Dilaudid 1 mg every 3 hours for pain control. He is on IV fluids running at 150 mL an hour of normal saline. General surgeries on the case. Is covered with IV Zosyn. The white cell count is not elevated. His lactic acid level started about 2.4 and dropped down to 1.6. Calcium is at 9.1. On 10/05/2019 the patient is postop day #1. The patient was taken to the operating room yesterday for an upper GI bleed and small bowel obstruction. The patient was found to have adhesion and complete small bowel obstruction and strangulation addition to diffuse gastric bleeding. He underwent expiratory laparotomy and small bowel resection with 5 cm of distal jejunum resected. He also underwent small bowel enterotomy and drainage of small bowel contents of 1 .5 L and peritoneal abdominal washout of 2 L and intraoperative EGD with gastric irrigation. The patient postop was kept intubated and was moved to the intensive care unit. I was told that he was a very difficult intubation and fiberoptic sent to be used. Post op chest x-ray showed right upper lobe atelectasis with seems to be improving on today's chest x-ray. He has excessive respiratory secretions. This morning, he remains on assist control mode at the rate of 14 with a tidal volume of 500 and FiO2 of 50% with a PEEP of 5. He is on normal saline at the rate of 150 mL an hour. His was sedated with propofol at 50 mics and is also on 1.5 g per KG per minute of fentanyl infusion. He is not requiring any pressors. His cardiac rhythm is sinus. NG tube in place and output has been in the order of 100 mL since he arrived from the operating room. Abdominal wound is clean and intact and the patient has a VAC system, PREVENA in place. No direct. His current hemoglobin is stable at 10.7. The patient received a total of 1 units of packed RBC as the patient was having significant blood loss. The antibiotic coverage remain the same and the patient is on IV Zosyn. His is having Dilaudid for pain control. On 10/06/2019 the patient is postop day #2. The patient is extubated. He is currently doing well. NG tube has been removed. No nausea. No vomiting. No emesis. No evidence of any GI bleed. Abdominal wound is dry clean and intact. A VAC system was then applied to the abdominal wound and output is minimal at this point in time. He is receiving Dilaudid 1 mg every 3 hours for pain control in addition to morphine 4 mg every 4 hours when necessary. He remains on IV Zosyn. He remains on IV Protonix. His hemoglobin is stable at 10.5. Is using incentive spirometer. No flatus. No bowel activity yet. As mentioned earlier, NG tube has been removed. No altered mentation. No other significant complaints otherwise for now. General surgeries on the case. Objective - Vital Signs Vital signs: Vital Signs Temp 99.0 F 10/06/19 08:00 Pulse 112 H 10/06/19 11:06 Resp 18 10/06/19 11:00 BP 160/91 06/07/20 11:00 Pulse Ox 100 10/06/19 11:00 Intake & Output 10/05/19 10/06/19 10/06/19 18:59 06:59 18:59 Intake Total 8855.344 7567 550 Output Total 995 1360 450 Balance 948.950 590 100 Weight 110.2 kg Intake: IV 1625 1950 550 Sodium Chloride 0.9% 1, 1500 1950 550 000 ml @ 150 mls/hr IV . Q6H40M [facility] Rx#:[id number] Zosyn 125 Intake, IV Titration 318.950 Amount Propofol 1,000 mg In 205.768 Empty Bag 1 bag @ Titrate IV .Q0M [facility] Rx#: [id number] fentaNYL (PF) 1,000 mcg 113.182 In Sodium Chloride 0.9% 80 ml @ Per Protocol IV . Q0M [facility] Rx#:[id number] Output: Drainage 0 0 Medial Abdomen 0 0 Urine 995 1360 450 Other: Voiding Method Indwelling Catheter Indwelling Catheter Indwelling Catheter - Exam Gen. appearance the patient is extubated, comfortable not in acute distress and the patient's pulse ox is 91% on 2 L of oxygen by nasal cannula. Neck was supple and without jugular venous distension, thyromegaly, or carotid bruits. Carotids were easily palpable bilaterally. There was no adenopathy. Lungs sounds are diminished and there is scattered rhonchi heard throughout the lung saraiva bilaterally. Cardiac exam revealed the PMI to be normally situated and sized. The rhythm was regular and no extrasystoles were noted during several minutes of auscultation. The first and second heart sounds were normal and physiologic splitting of the second heart sound was noted. There were no murmurs, rubs, clicks, or gallops. Abdomen is distended soft. No direct tenderness. No rebound tenderness or guarding. Bowel sounds are hypoactive. There is a VAC system covering the abdominal wound and that is no active drainage at this point in time. No organomegaly. Extremities revealed trace edema and there is no cyanosis or clubbing. Neurologically the patient is awake and alert and no focal neurological deficits. - Labs CBC & Chem 7: 10/06/19 04:38 10/06/19 04:38 Labs: Abnormal Lab Results - Last 24 Hours (Table) 10/05/19 10/05/19 10/05/19 Range/Units 11:51 11:58 23:54 RBC (4.30-5.90) m/uL Hgb (13.0-17.5) gm/dL Hct (39.0-53.0) % Lymphocytes # (1.0-4.8) k/uL ABG pCO2 48 H (35-45) mmHg ABG pO2 80 L (83-108) mmHg ABG HCO3 28 H (21-25) mmol/L ABG Total CO2 29 H (19-24) mmol/L Chloride (98-107) mmol/L POC Glucose (mg/dL) 101 H 100 H (75-99) mg/dL 10/06/19 10/06/19 Range/Units 04:38 04:38 RBC 3.52 L (4.30-5.90) m/uL Hgb 10.5 L (13.0-17.5) gm/dL Hct 32.0 L (39.0-53.0) % Lymphocytes # 0.8 L (1.0-4.8) k/uL ABG pCO2 (35-45) mmHg ABG pO2 (83-108) mmHg ABG HCO3 (21-25) mmol/L ABG Total CO2 (19-24) mmol/L Chloride 109 H (98-107) mmol/L POC Glucose (mg/dL) (75-99) mg/dL Microbiology - Last 24 Hours (Table) 10/05/19 00:00 Gram Stain - Preliminary Sputum Sputum Culture - Preliminary 10/04/19 23:15 Urine Culture - Preliminary Urine,Clean Catch Assessment and Plan Plan: 1 small bowel obstruction. The patient is postop day #2 following expiratory laparotomy with small bowel resection where 5 cm of the distal jejunum was resected and the patient underwent also small bowel enterotomy with drainage of 1.5 L of small bowel content and 13 abdominal washout. 2 L of fluid was irrigated and the patient also underwent an EGD. 2 upper GI bleed as the patient had coffee-ground emesis and subsequent bright red blood emesis. The patient underwent an EGD and there was no evidence of any gastric ulcers identified and duodenum showed diffuse was without active duodenal bleeding and the duodenum and the stomach was irrigated with saline. NG tube is in place and there is no active bleeding at this point in time. The patient received a unit of packed RBC postop. Hemoglobin remains stable. NG tube is removed. The morning hemoglobin is at 10.5. 3 previous history of peptic ulcer disease with perforation of peptic ulcer back in 1990 4 acute hypoxic respiratory failure following abdominal surgery, extubated to nasal cannula without any major difficulties 5 right upper lobe atelectasis, postop, likely secondary to respiratory secretions and atelectasis is improving. 6 hyperlipidemia 7 previous history of peptic ulcer disease requiring surgery 8 history of colonic polyps 9 right upper lobe atelectasis, improved on today's chest x-ray. There are still some subsegmental atelectatic changes in the upper lobes bilaterally. Plan Continue IV fluids at the rate of 150 mL an hour normal saline IV Protonix IV Zosyn The NG tube was removed Morphine for pain control The patient has developed a right upper lobe atelectasis. The patient needs to continue using incentive spirometer. There is some limited atelectatic changes in the upper lobes bilaterally yet the significant right upper lobe atelectasis has recovered. Monitor hemoglobin Keep the patient nothing by mouth. No significant bowel sounds on today's evaluation. Surgical wound site is dry clean and intact. Give the patient ICU for now we'll continue to follow make further recommendations based on his progress.
[2019-10-06] MEDS: KETOROLAC 30 MG/ML 1 ML VIAL IVP SCH ×2 (11:51→17:47)
[2019-10-06 12:14] LABS: Glucose,Whole Blood 96 mg/dL (75-99)
--- NOTE | 2019-10-06 13:12 | PN ---
PROGRESS NOTE DATE OF SERVICE: 10/06/2019 The patient admitted on 10/03/2019 and currently initially admitted to the 4th floor with the underlying acute small bowel obstruction, probably mechanical with the consultation with Dr. Clinton, the surgeon. The patient subsequently had NG tube, found to be bloody as well as acid hematin and drop in his hemoglobin. The patient transferred to the ICU and subsequently underwent surgery with the exploratory laparotomy and found that he had a twist and adhesion and he had removal of 4 cm of the jejunal part of the distal jejunum and suction of 1.5 L from the small bowel. Also, he underwent EGD with the gastritis but no peptic ulcer disease found. The patient transfused 1 unit of packed RBCs. However, he had 2 units were assigned to him and today on the his hemoglobin was 10.5 and hematocrit 32.0, and he did not need so far the 2nd unit. The patient currently in the ICU and he is conscious, alert, oriented. He is off the ventilator and he was extubated yesterday by Dr. Gibbs. Subsequently he continued the NG tube with the presence still of acid hematin. As of today 10/06/2019, his vital sign is stable but he has been on IV fluid with normal saline 150 mL an hour and he has swollen of his finger and hand and minimal volume overload. We started with decreases the IV fluids to [address] Gibbs and Dr. Clinton. With also other signs that his blood pressure is picking up and could be associated with volume. His blood pressure at the time seen, 160/91 with a mean of 114. His oxygen saturation was 100% and he is on oxygen nasal cannula. His pulse rate was mild tachycardic with 104, heart rate and 112. His respiratory rate is on his own between 21 and 18. LABORATORY: Indicating today his white count 6.6, and his hemoglobin 10.5 and hematocrit 32. His platelet count is normal and his electrolytes indicating the sodium 139, potassium 4.1, chloride 109, carbon dioxide 25, and BUN 16 and creatinine 0.99. The anion gap is a 5 and carbon dioxide is 25. His estimated GFR for is more than 90 and his monitoring blood sugar was 93. His calcium was 9.2. He had a sputum sent out and he is on Zosyn by Dr. Clinton and with the sputum culture nonsignificant and the urinary culture preliminary so far pending full. His total intake was 1350 mL and output 740. With the balance 610 positive balance. His weight has been increased from 108.1 kg to 110.2 kg probably associated with the fluid. PHYSICAL EXAM: The patient is conscious, is alert and we discussed incentive spirometry to be used. He had NG tube in still in place. He has still distended abdomen and status post exploratory laparotomy with excision and that is expected and the chest is clear. No wheezes, no rhonchi. The heart is regular sinus rhythm and no other symptoms. His extremities as mentioned. He has mild swelling of the finger and with soft tissue edema at this point, not pitting and also the abdomen is tympanitic and distended and that also discussed with the patient that it takes about 3-4 days to go down and he is currently understand and alert for that. The extremities, he has thrombotic stocking as well and no other abnormalities. ASSESSMENT: He is status post surgery exploratory laparotomy with resection of 4 cm of the jejunum with the mechanical obstruction and he had also diffuse gastrointestinal bleeding and with drop of hemoglobin with anemia secondary to the diffuse bleeding from the stomach. The patient otherwise stable vital signs. We are going to decrease IV fluid to 125 mL an hour and gradually to see if that will improve his also blood pressure which is increased mildly due to the volume. MANUELL / IJN: [id number] /
[2019-10-06 23:26] LABS: Glucose,Whole Blood 97 mg/dL (75-99)
[2019-10-07] MEDS: MAG HYDROX/AL HYDROX/SIMETH 30 ML CUP PO SCH ×7 (00:27→23:00)
[2019-10-07] MEDS: HYDROmorphone 1 MG/ML 1 ML SYRINGE IVP PRN ×6 (00:29→20:18)
[2019-10-07] MEDS: KETOROLAC 30 MG/ML 1 ML VIAL IVP SCH ×5 (00:29→23:01)
[2019-10-07] MEDS: SODIUM CHLORIDE 0.9% 1,000 ML IV SCH ×4 (00:30→23:01)
[2019-10-07] MEDS: IPRATROPIUM-ALBUTEROL 3 ML NEB INHALATION SCH ×2 (03:36→07:47)
[2019-10-07] MEDS: ONDANSETRON 4 MG/2 ML VIAL IVP PRN ×3 (03:57→17:20)
[2019-10-07] MEDS: PIPERACILLIN-TAZOBACTAM 3.375 GM in SODIUM CHLORIDE 0.9% 100 ML IVPB SCH ×3 (04:34→18:35)
[2019-10-07 05:04] LABS: HGB 10.8 gm/dL (13.0-17.5); Hypochromasia Slight; MCH 29.2 pg (25.0-35.0); MCHC 31.8 g/dL (31.0-37.0); MCV 91.8 fL (80.0-100.0); Mean Platelet Volume 8.3; Platelet Count 255 k/uL (150-450); RBC 3.71 m/uL (4.30-5.90); RDW 14.5 % (11.5-15.5); WBC 5.9 k/uL (3.8-10.6)
[2019-10-07 05:13] LABS: African American GFR (CKD) >90 (>60 ml/min/1.73 sqM); Anion Gap 8 mmol/L; Blood Urea Nitrogen 21 mg/dL (9-20); Calcium 9.5 mg/dL (8.4-10.2); Carbon Dioxide 22 mmol/L (22-30); Chloride 110 mmol/L (98-107); Glucose 100 mg/dL (74-99); Non-African American GFR(CKD) 87 (>60 ml/min/1.73 sqM); Potassium 3.7 mmol/L (3.5-5.1); Sodium 140 mmol/L (137-145)
[2019-10-07 05:30] LABS: Glucose,Whole Blood 95 mg/dL (75-99)
[2019-10-07 06:05] LABS: Band Neutrophils % 1 %; Eosinophils # (M) 0.18 k/uL (0-0.7); Lymphocytes # (M) 0.89 k/uL (1.0-4.8); Monocytes # (M) 0.77 k/uL (0-1.0); Neutrophils % (M) 68 %; Nucleated Red Blood Cells 0 /100 WBC (0-0); Total Cells Counted 100
[2019-10-07] MEDS ORDERED: Potassium Replacement Protocol 1 EACH MISC MISCELLANE PRN (06:08)
--- NOTE | 2019-10-07 06:24 | XR ---
EXAM: XR Chest, 1 View CLINICAL HISTORY: Nasogastric tube placement TECHNIQUE: Frontal view of the chest. COMPARISON: No relevant prior studies available. FINDINGS: Lungs: There are persistent bands of subsegmental atelectasis in both lungs. These are not significantly changed. Pleural space: Unremarkable. No pneumothorax or pleural fluid. Heart: Unremarkable. No cardiomegaly. Mediastinum: Unremarkable. Bones/joints: No acute findings. Tubes, lines and devices: A gastric tube is seen in the stomach with the tip in the proximal stomach. IMPRESSION: Nasogastric tube within proximal stomach.
[2019-10-07] MEDS: POTASSIUM CHLORIDE 10 MEQ in WATER FOR INJECTION 1 100ML.BAG IVPB SCH ×2 (06:39→08:09)
--- NOTE | 2019-10-07 08:02 | P.PN ---
Subjective Progress Note Date: 10/07/19 CHIEF COMPLAINT: Small bowel obstruction HISTORY OF PRESENT ILLNESS: The patient is a 59-year-old male status post open lysis of adhesions, small bowel resection, intraoperative EGD 10/04/2019. His p ostoperative day 3. Reports thirst. No passage of flatus. He has been extubated since yesterday. No fevers or chills. Hemoglobin has been stable for 3 days following acute hematemesis and upper GI bleed. ROS: Had bilious emesis this morning. No bowel movements. No fevers or chills. No new chest pain. PHYSICAL EXAM: VITAL SIGNS: Reviewed CONSTITUTIONAL: Well developed and in no acute distress. EYES: Conjuctivae without sclera icterus. Extraocular movements grossly intact. HEAD, EARS, NOSE, THROAT: Moist buccal mucosa. Head is atraumatic, normocephalic. Hears conversational speech. No nasal drainage. NECK: Supple. No thyroidomegaly. RESPIRATORY: Non-labored respirations and equal bilateral excursions. CARDIOVASCULAR: Palpable 2+ radial pulses. tachycardic. ABDOMEN: Protuberant. Mild distention. No peritonitis. Incision is clean dry and intact. MUSCULOSKELETAL: No gross deformity of the lower extremities noted. No clubbing. No cyanosis. SKIN: Good skin turgor. Well perfused. NEUROLOGIC: Cranial nerves II through XII grossly intact. No focal or lateralizing signs. PSYCH: Appropriate affect. Alert and oriented to person, place and time. CLINICAL LABS: White blood cell count normal 5.9, down from 11.2. Hgb 17.6 to 10.8. Creatinine improved from 1.75 to 0.95 ASSESSMENT: 1. Small bowel obstruction on admission 2. Dehydration, qyrniscj-on-nowvdw on admission 3. Acute kidney injury present on admission secondary to dehydration 4. Hematemesis 5. Tachycardia PLAN: 1. May have ice was Popsicles including cups of water per shift for thirst. 2. Continue NG tube secondary to bilious emesis this morning 3. For tachycardia, recommend metoprolol as the patient also is hypertensive. 4. Await bowel function prior to start of diet 5. May be transferred to the floor when stable from critical care standpoint Objective - Vital Signs Vital signs: Vital Signs Temp 98.5 F 10/07/19 04:00 Pulse 103 H 10/07/19 07:47 Resp 16 10/07/19 07:00 BP 156/88 10/07/19 07:00 Pulse Ox 96 10/07/19 07:00 Intake & Output 10/06/19 10/07/19 10/07/19 18:59 06:59 18:59 Intake Total 1425 1500 125 Output Total 1325 1890 80 Balance 100 -390 45 Weight 109.5 kg Intake: IV 1425 1500 125 Sodium Chloride 0.9% 1, 1425 1500 125 000 ml @ 125 mls/hr IV . Q8H [facility] Rx#:[id number] Output: Gastric Drainage 500 Drainage 0 Medial Abdomen 0 Urine 1325 1290 80 Urine/Stool Mix 100 Other: Voiding Method Indwelling Catheter Indwelling Catheter - Labs CBC & Chem 7: 10/07/19 04:43 10/07/19 04:43 Labs: Abnormal Lab Results - Last 24 Hours (Table) 10/07/19 10/07/19 Range/Units 04:43 04:43 RBC 3.71 L (4.30-5.90) m/uL Hgb 10.8 L (13.0-17.5) gm/dL Hct 34.0 L (39.0-53.0) % Lymphocytes # (Manual) 0.89 L (1.0-4.8) k/uL Chloride 110 H (98-107) mmol/L BUN 21 H (9-20) mg/dL Glucose 100 H (74-99) mg/dL Microbiology - Last 24 Hours (Table) 10/04/19 23:15 Urine Culture - Final Urine,Clean Catch Assessment and Plan (1) History of gastric ulcer Current Visit: Yes Status: Acute Code(s): Z87.19 - PERSONAL HISTORY OF OTHER DISEASES OF THE DIGESTIVE SYSTEM SNOMED Code(s): 069755098 (2) Gastritis with bleeding Current Visit: Yes Status: Acute Code(s): K29.71 - GASTRITIS, UNSPECIFIED, WITH BLEEDING SNOMED Code(s): 4534068 (3) Dehydration Current Visit: Yes Status: Acute Code(s): E86.0 - DEHYDRATION SNOMED Code(s): 59724588 (4) Acute kidney injury (HAMZAH) with acute tubular necrosis (ATN) Current Visit: Yes Status: Acute Code(s): N17.0 - ACUTE KIDNEY FAILURE WITH TUBULAR NECROSIS SNOMED Code(s): 498005810 (5) Nausea & vomiting Current Visit: Yes Status: Acute Code(s): R11.2 - NAUSEA WITH VOMITING, UNSPECIFIED SNOMED Code(s): 58899280 (6) Small bowel obstruction Current Visit: Yes Status: Acute Code(s): K56.609 - UNSP INTESTNL OBST, UNSP TO PARTIAL VERSUS COMPLETE OBST SNOMED Code(s): 102840841
[2019-10-07] MEDS: METOPROLOL TARTRATE 25 MG TAB PO SCH ×2 (08:21→20:19)
[2019-10-07] MEDS: PANTOPRAZOLE 40 MG/10 ML VIAL IVP SCH ×2 (08:21→20:19)
[2019-10-07 10:16] VITALS: BMI 34.6
[2019-10-07 12:02] LABS: Glucose,Whole Blood 104 mg/dL (75-99)
--- NOTE | 2019-10-07 12:08 | P.PN ---
Subjective Progress Note Date: 10/07/19 Principal diagnosis: Small bowel obstruction status post exploratory laparotomy and small bowel resection, postoperative day #3 This is a very pleasant 59-year-old male patient with has both yesterday because of small bowel obstruction. The patient has history of peptic ulcer disease and the patient has undergone previous gastric surgery for a bleeding ulcer back in the 90s. He came in with abdominal pain and distention of a few days duration. He was unable to pass any bowel movements or flatus. No reported diarrhea. He was having nausea and emesis. He was admitted for small bowel obstruction. NG tube was placed in the emergency department. Approximately 400 mL of drainage was immediately obtained. A CAT scan of the abdomen was also done that showed and confirmed the presence of small bowel obstruction. There was bilateral small bowel consistent with mechanical small bowel obstruction at the level of the distal jejunum or proximal ileum. Obstruction was no compared to the old examination. Yesterday afternoon, the patient a chest to the intensive care unit as the patient started having coffee-ground material coming out of the NG. He also was having episodic hematemesis. The patient vomited approximately 5 mL of blood. The patient was given a total of 4 L of IV fluids. The patient's hemoglobin dropped from a baseline of 17.6 down to 11.5 this morning. His last bout of emesis of blood was earlier this morning. Gen. surgery was informed that the patient will be having a gastroscopy. Meanwhile, the patient claims that his been passing some flatus today. NG tube still in place. Abdomen is distended. It's less tender compared to yesterday and the patient is receiving morphine 4 mg every 3 hours for pain control and addition to Dilaudid 1 mg every 3 hours for pain control. He is on IV fluids running at 150 mL an hour of normal saline. General surgeries on the case. Is covered with IV Zosyn. The white cell count is not elevated. His lactic acid level started about 2.4 and dropped down to 1.6. Calcium is at 9.1. On 10/05/2019 the patient is postop day #1. The patient was taken to the operating room yesterday for an upper GI bleed and small bowel obstruction. The patient was found to have adhesion and complete small bowel obstruction and strangulation addition to diffuse gastric bleeding. He underwent expiratory laparotomy and small bowel resection with 5 cm of distal jejunum resected. He also underwent small bowel enterotomy and drainage of small bowel contents of 1.5 L and peritoneal abdominal washout of 2 L and intraoperative EGD with gastric irrigation. The patient postop was kept intubated and was moved to the intensive care unit. I was told that he was a very difficult intubation and fiberoptic sent to be used. Post op chest x-ray showed right upper lobe atelectasis with seems to be improving on today's chest x-ray. He has excessive respiratory secretions. This morning, he remains on assist control mode at the rate of 14 with a tidal volume of 500 and FiO2 of 50% with a PEEP of 5. He is on normal saline at the rate of 150 mL an hour. His was sedated with propofol at 50 mics and is also on 1.5 g per KG per minute of fentanyl infusion. He is not requiring any pressors. His cardiac rhythm is sinus. NG tube in place and output has been in the order of 100 mL since he arrived from the operating room. Abdominal wound is clean and intact and the patient has a VAC system, PREVENA in place. No direct. His current hemoglobin is stable at 10.7. The patient received a total of 1 units of packed RBC as the patient was having significant blood loss. The antibiotic coverage remain the same and the patient is on IV Zosyn. His is having Dilaudid for pain control. On 10/06/2019 the patient is postop day #2. The patient is extubated. He is currently doing well. NG tube has been removed. No nausea. No vomiting. No emesis. No evidence of any GI bleed. Abdominal wound is dry clean and intact. A VAC system was then applied to the abdominal wound and output is minimal at t his point in time. He is receiving Dilaudid 1 mg every 3 hours for pain control in addition to morphine 4 mg every 4 hours when necessary. He remains on IV Zosyn. He remains on IV Protonix. His hemoglobin is stable at 10.5. Is using incentive spirometer. No flatus. No bowel activity yet. As mentioned earlier, NG tube has been removed. No altered mentation. No other significant complaints otherwise for now. General surgeries on the case. Patient was evaluated today on 10/07/19, remains in the ICU as an overflow, his postoperative day #3. He is on room air, satting at 96%. His IV fluid is 1 25 mL per hour. Chest x-ray showed minimal atelectasis in the right upper lobe. Patient remains nothing by mouth except for ice chips. Metoprolol was added at 25 mg twice a day for sinus tachycardia. Continues to have significant nasogastric output via nasogastric tube about 600 mL out. Patient vomited once last night around the nasogastric tube. Abdomen remains a bit distended, and no bowel movements yet. Labs were reviewed relatively normal CBC and basic metabolic profile normal renal profile. Patient is asymptomatic. Objective - Vital Signs Vital signs: Vital Signs Temp 98.5 F 10/07/19 08:00 Pulse 104 H 10/07/19 08:00 Resp 23 10/07/19 08:00 BP 145/91 10/07/19 08:00 Pulse Ox 97 10/07/19 08:00 Intake & Output 10/06/19 10/07/19 10/07/19 18:59 06:59 18:59 Intake Total 1425 1500 950 Output Total 1325 1890 325 Balance 100 -390 625 Weight 109.5 kg 109.5 kg Intake: IV 1425 1500 950 Sodium Chloride 0.9% 1, 1425 1500 750 000 ml @ 125 mls/hr IV . Q8H [facility] Rx#:[id number] Zosyn 200 Output: Gastric Drainage 500 Drainage 0 Medial Abdomen 0 Urine 1325 1290 325 Urine/Stool Mix 100 Other: Voiding Method Indwelling Catheter Indwelling Catheter Indwelling Catheter - Exam Physical Exam: Revealed a 59-year-old -[place] male, in no distress. Head: Atraumatic normocephalic. HEENT:[Neck is supple.] [No neck masses.] [No thyromegaly.] [No JVD.] PERRLA, EOMI, nasogastric tube is in place. Chest: [Symmetrical chest expansion, crackles at the bases, no rhonchi and no wheezes..] Cardiac Exam: [Normal S1 and S2, no S3 gallop, no murmur.] Abdomen: [Distended, but not tender. Diminished bowel sounds. no megaly, no rebound, no guarding, VAC system covering the abdominal wound is showing no active drainage. Extremities: [No clubbing, trace of bipedal edema, no cyanosis.] Neurological Exam: [No focal neurologic deficit.] Alert and oriented 3. Psychiatric: Normal mood, affect and normal mental status examination. - Labs CBC & Chem 7: 10/07/19 04:43 10/07/19 04:43 Labs: Abnormal Lab Results - Last 24 Hours (Table) 10/07/19 10/07/19 Range/Units 04:43 04:43 RBC 3.71 L (4.30-5.90) m/uL Hgb 10.8 L (13.0-17.5) gm/dL Hct 34.0 L (39.0-53.0) % Lymphocytes # (Manual) 0.89 L (1.0-4.8) k/uL Chloride 110 H (98-107) mmol/L BUN 21 H (9-20) mg/dL Glucose 100 H (74-99) mg/dL Microbiology - Last 24 Hours (Table) 10/05/19 00:00 Gram Stain - Final Sputum Sputum Culture - Final Christiane albicans 10/04/19 23:15 Urine Culture - Final Urine,Clean Catch Assessment and Plan Assessment: Impression: Small bowel obstruction, postoperative day #3, status post exploratory laparotomy and small bowel resection. Upper GI bleeding status post EGD, however there was diffuse gastritis and duodenitis. Hemoglobin remains stable. History of peptic ulcer disease previous perforation in 1990. Minimal right upper lobe atelectasis, not clinically significant. History of colonic polyps Recommendation: Continue IV fluid. Patient is no left to have popsicles and cups of water per shift. As recommended by surgery. Continue nasogastric tube secondary to bilious emesis this morning. Continue IV Protonix. Continue empiric antibiotics. Continue pain control. Continue incentive spirometry. Early ambulation. Agree with metoprolol at 25 twice a day. Transfer patient to a regular medical floor. We'll continue to follow Time with Patient: Less than 30
--- NOTE | 2019-10-07 13:11 | P.PN ---
Subjective Progress Note Date: 10/07/19 This dictation on the progress note. Patient seen and evaluated in ICU today 10/07/2019 Patient is conscious alert oriented 3 He had the still distention of the abdomen and he had the NG tube in place with the presence of acidemic teen. He is a second day of postsurgical. Vital signs stable, he still continue postoperative day 2 and he had no passing flatus with the abdominal distention and tympanitic however that's early post operative period on the exam HEENT was negative Neck was supple no JVD no thyromegaly no lymphadenopathy trachea midline Chest clear to auscultation and percussion and he using the incentive spirometry and he had a thrombotic stocking. Heart regular sinus rhythm. Abdomen distended still symptomatic on percussion and still silent. No passing gases. Extremities: Have thrombotic stocking no edema and positive pulses. Laboratory reviewed and intake and output. Status post small bowel obstruction with the 4 cm resection of jejunum distal part. Assessment: Patient stable hemodynamically and it is postoperative day 2 which is early to see any bowel function at this time. Plan continue to monitor in the ICU, patient seen also by critical care Dr. Sherman and the surgeon Dr. Park. Objective - Vital Signs Vital signs: Vital Signs Temp 98.5 F 10/07/19 08:00 Pulse 104 H 10/07/19 08:00 Resp 23 10/07/19 08:00 BP 145/91 10/07/19 08:00 Pulse Ox 97 10/07/19 08:00 Intake & Output 10/06/19 10/07/19 10/07/19 18:59 06:59 18:59 Intake Total 1425 1500 950 Output Total 1325 1890 325 Balance 100 -390 625 Weight 109.5 kg 109.5 kg Intake: IV 1425 1500 950 Sodium Chloride 0.9% 1, 1425 1500 750 000 ml @ 125 mls/hr IV . Q8H [facility] Rx#:[id number] Zosyn 200 Output: Gastric Drainage 500 Drainage 0 Medial Abdomen 0 Urine 1325 1290 325 Urine/Stool Mix 100 Other: Voiding Method Indwelling Catheter Indwelling Catheter Indwelling Catheter - Labs CBC & Chem 7: 10/07/19 04:43 10/07/19 04:43 Labs: Abnormal Lab Results - Last 24 Hours (Table) 10/07/19 10/07/19 10/07/19 Range/Units 04:43 04:43 12:00 RBC 3.71 L (4.30-5.90) m/uL Hgb 10.8 L (13.0-17.5) gm/dL Hct 34.0 L (39.0-53.0) % Lymphocytes # (Manual) 0.89 L (1.0-4.8) k/uL Chloride 110 H (98-107) mmol/L BUN 21 H (9-20) mg/dL Glucose 100 H (74-99) mg/dL POC Glucose (mg/dL) 104 H (75-99) mg/dL Microbiology - Last 24 Hours (Table) 10/05/19 00:00 Gram Stain - Final Sputum Sputum Culture - Final Christiane albicans 10/04/19 23:15 Urine Culture - Final Urine,Clean Catch
[2019-10-07] MEDS: MORPHINE SULFATE 4 MG/ML SYRINGE IV PRN (17:11)
[2019-10-07 17:52] LABS: Glucose,Whole Blood 97 mg/dL (75-99)
[2019-10-07 23:37] LABS: Glucose,Whole Blood 85 mg/dL (75-99)
[2019-10-08] MEDS: HYDROmorphone 1 MG/ML 1 ML SYRINGE IVP PRN ×7 (01:44→22:23)
[2019-10-08] MEDS: PIPERACILLIN-TAZOBACTAM 3.375 GM in SODIUM CHLORIDE 0.9% 100 ML IVPB SCH ×3 (03:16→19:51)
[2019-10-08] MEDS: MAG HYDROX/AL HYDROX/SIMETH 30 ML CUP PO SCH ×5 (03:52→21:39)
[2019-10-08] MEDS: ONDANSETRON 4 MG/2 ML VIAL IVP PRN ×2 (04:16→11:04)
[2019-10-08 04:55] LABS: Basophils % (A) 0 %; Eosinophils # (A) 0.2 k/uL (0-0.7); Eosinophils % (A) 4 %; HCT 31.8 % (39.0-53.0); HGB 10.1 gm/dL (13.0-17.5); Hypochromasia Slight; Lymphocytes # (A) 0.6 k/uL (1.0-4.8); Lymphocytes % (A) 10 %; MCH 29.2 pg (25.0-35.0); MCHC 31.7 g/dL (31.0-37.0); MCV 92.2 fL (80.0-100.0); Mean Platelet Volume 8.4; Monocytes # (A) 0.7 k/uL (0-1.0); Monocytes % (A) 13 %; Neutrophils # (A) 3.8 k/uL (1.3-7.7); Neutrophils % (A) 70 %; Platelet Count 303 k/uL (150-450); RBC 3.45 m/uL (4.30-5.90); RDW 14.4 % (11.5-15.5); WBC 5.5 k/uL (3.8-10.6)
[2019-10-08 05:10] LABS: ALT 20 U/L (4-49); AST 31 U/L (17-59); African American GFR (CKD) >90 (>60 ml/min/1.73 sqM); Albumin 2.8 g/dL (3.5-5.0); Alkaline Phosphatase 67 U/L (38-126); Anion Gap 7 mmol/L; Blood Urea Nitrogen 22 mg/dL (9-20); Calcium 9.4 mg/dL (8.4-10.2); Carbon Dioxide 24 mmol/L (22-30); Chloride 113 mmol/L (98-107); Glucose 94 mg/dL (74-99); Non-African American GFR(CKD) 85 (>60 ml/min/1.73 sqM); Potassium 3.9 mmol/L (3.5-5.1); Sodium 144 mmol/L (137-145); Total Bilirubin 0.7 mg/dL (0.2-1.3); Total Protein 5.4 g/dL (6.3-8.2)
[2019-10-08] MEDS: KETOROLAC 30 MG/ML 1 ML VIAL IVP SCH ×4 (05:53→23:34)
[2019-10-08] MEDS: POTASSIUM CHLORIDE 10 MEQ in WATER FOR INJECTION 1 100ML.BAG IVPB SCH ×2 (05:54→08:11)
[2019-10-08 06:04] LABS: Glucose,Whole Blood 90 mg/dL (75-99)
[2019-10-08] MEDS: PANTOPRAZOLE 40 MG/10 ML VIAL IVP SCH ×2 (08:12→21:39)
[2019-10-08] MEDS: METOPROLOL TARTRATE 25 MG TAB PO SCH ×3 (08:12→21:49)
--- NOTE | 2019-10-08 09:00 | XR ---
EXAMINATION TYPE: XR chest 1V portable DATE OF EXAM: 10/08/2019 COMPARISON: 10/07/2019 HISTORY: Enteric tube placement. TECHNIQUE: Single frontal view of the chest is obtained. FINDINGS: Linear multifocal atelectasis and/or scarring is stable bilaterally. Enteric tube appears similar in position to the prior with its distal tip oriented over the stomach however the fenestrate d portion is not clearly seen. Midline surgical gerber partially visualized. Stable size of the card iomediastinal silhouette. IMPRESSION: Enteric tube appear similar to the prior however the fenestrated portion is not seen. Th is is likely appropriately placed over attention on follow-up exams is recommended.
--- NOTE | 2019-10-08 11:02 | P.PN ---
<Yessy Montes - Last Filed: 10/08/19 10:53> Subjective Progress Note Date: 10/08/19 CHIEF COMPLAINT: Small bowel obstruction HISTORY OF PRESENT ILLNESS: Patient is status post open lysis of adhesions, small bowel resection, and intraoperative EGD performed on 10/04/2019. Po stoperative day #4. Patient examined at the bedside with Dr. Clinton. NG tube remains to low intermittent suction with bilious drainage. He denies passing flatus. Blood pressure stable. He is afebrile. Heart rate low 100s. WBC 5.5. Hemoglobin 10.1. PHYSICAL EXAM: VITAL SIGNS: Reviewed GENERAL: Well-developed in no acute distress. HEENT: No sclera icterus. Extraocular movements grossly intact. Moist buccal mucosa. Head is atraumatic, normocephalic. Hears conversational speech. No nasal drainage. NECK: Supple without lymphadenopathy. CHEST: Non-labored respirations and equal bilateral excursions. CARDIOVASCULAR: Regular rate with regular rhythm. Mildly tachycardic. Palpable 2+ radial pulses. ABDOMEN: Soft. Distended. NG tube to low intermittent suction. PREVENA wound vac noted. MUSCULOSKELETAL: No clubbing or cyanosis. NEUROLOGIC: No focal or lateralizing signs. Cranial nerves II through XII grossly intact. PSYCH: Appropriate affect. Alert and oriented to person, place and time. SKIN: Well perfused. Good skin turgor. ASSESSMENT: 1. Small bowel obstruction on admission 2. Dehydration, [id number] on admission 3. Acute kidney injury present on admission secondary to dehydration 4. Hematemesis 5. Tachycardia PLAN: -Continue NG tube until patient begins passing flatus -May have ice chips and popsicles -Begin PPN Nurse practitioner note has been reviewed by physician. Signing provider agrees with the documented findings, assessment, and plan of care. Objective - Vital Signs Vital signs: Vital Signs Temp 97.6 F 10/08/19 06:09 Pulse 101 H 10/08/19 08:00 Resp 15 10/08/19 08:00 BP 142/89 10/08/19 06:09 Pulse Ox 97 10/08/19 06:09 Intake & Output 10/07/19 10/08/19 10/08/19 18:59 06:59 18:59 Intake Total 1550 1250 250 Output Total 485 3100 50 Balance 1065 -1850 200 Weight 109.5 kg Intake: IV 1550 1000 250 Sodium Chloride 0.9% 1, 1250 1000 250 000 ml @ 125 mls/hr IV . Q8H [facility] Rx#:[id number] Zosyn 300 Oral 250 Output: Gastric Drainage 2600 Urine 485 500 50 Other: Voiding Method Indwelling Catheter Indwelling Catheter Indwelling Catheter - Labs CBC & Chem 7: 10/08/19 04:29 10/08/19 04:29 Labs: Abnormal Lab Results - Last 24 Hours (Table) 10/07/19 10/08/19 10/08/19 Range/Units 12:00 04:29 04:29 RBC 3.45 L (4.30-5.90) m/uL Hgb 10.1 L (13.0-17.5) gm/dL Hct 31.8 L (39.0-53.0) % Lymphocytes # 0.6 L (1.0-4.8) k/uL Chloride 113 H (98-107) mmol/L BUN 22 H (9-20) mg/dL POC Glucose (mg/dL) 104 H (75-99) mg/dL Total Protein 5.4 L (6.3-8.2) g/dL Albumin 2.8 L (3.5-5.0) g/dL Microbiology - Last 24 Hours (Table) 10/05/19 00:00 Gram Stain - Final Sputum Sputum Culture - Final Christiane albicans <Myrna Clinton - Last Filed: 10/09/19 20:54> Subjective Patient seen and evaluated with nurse practitioner above. Patient reports moderate improvement of initial right lower quadrant abdominal pain. He is yet to pass flatus. He does report abdominal distention. He has nausea with emesis after getting Dilaudid. He has persistent tachycardia. Recommend start of metoprolol to address hypertension including tachycardia. Agreeable will start PPN as the patient has been nothing by mouth beyond 4 days. Objective - Vital Signs Vital signs: Vital Signs Temp 98.7 F 10/09/19 19:22 Pulse 103 H 10/09/19 19:22 Resp 18 10/09/19 19:22 BP 157/91 10/09/19 19:22 Pulse Ox 98 10/09/19 19:22 Intake & Output 10/09/19 10/09/19 10/10/19 06:59 18:59 06:59 Intake Total 2713 Output Total 2800 1175 Balance -87 -1175 Weight 106.4 kg Intake: IV 2000 Sodium Chloride 0.9% 1, 2000 000 ml @ 125 mls/hr IV . Q8H [facility] Rx#:[id number] Intake, IV Titration 100 Amount Piperacillin-Tazobactam 3 100 .375 gm In Sodium Chloride 0.9% 100 ml @ 25 mls/hr IVPB Q8H [facility] Rx#: [id number] Oral 613 Output: Gastric Drainage 2300 550 Urine 500 425 Uretheral ([place]) 250 Emesis 200 Other: Voiding Method Indwelling Catheter Toilet Urinal # Bowel Movements 1 - Labs CBC & Chem 7: 10/08/19 04:29 10/09/19 07:52 Labs: Abnormal Lab Results - Last 24 Hours (Table) 10/09/19 10/09/19 10/09/19 Range/Units 07:52 11:35 16:50 Chloride 109 H (98-107) mmol/L BUN 21 H (9-20) mg/dL POC Glucose (mg/dL) 122 H 134 H (75-99) mg/dL Assessment and Plan (1) History of gastric ulcer Current Visit: Yes Status: Acute Code(s): Z87.19 - PERSONAL HISTORY OF OTHER DISEASES OF THE DIGESTIVE SYSTEM SNOMED Code(s): 102663929 (2) Gastritis with bleeding Current Visit: Yes Status: Acute Code(s): K29.71 - GASTRITIS, UNSPECIFIED, WITH BLEEDING SNOMED Code(s): 8901579 (3) Dehydration Current Visit: Yes Status: Acute Code(s): E86.0 - DEHYDRATION SNOMED Code (s): 99374065 (4) Acute kidney injury (HAMZAH) with acute tubular necrosis (ATN) Current Visit: Yes Status: Acute Code(s): N17.0 - ACUTE KIDNEY FAILURE WITH TUBULAR NECROSIS SNOMED Code(s): 776655748 (5) Nausea & vomiting Current Visit: Yes Status: Acute Code(s): R11.2 - NAUSEA WITH VOMITING, UNSPECIFIED SNOMED Code(s): 77447834 (6) Small bowel obstruction Current Visit: Yes Status: Acute Code(s): K56.609 - UNSP INTESTNL OBST, UNSP TO PARTIAL VERSUS COMPLETE OBST SNOMED Code(s): 149332065
[2019-10-08 11:39] LABS: Glucose,Whole Blood 95 mg/dL (75-99)
--- NOTE | 2019-10-08 12:13 | P.PN ---
Subjective Progress Note Date: 10/08/19 Principal diagnosis: Small bowel obstruction status post exploratory laparotomy and small bowel resection, postoperative day #4 This is a very pleasant 59-year-old male patient with has both yesterday because of small bowel obstruction. The patient has history of peptic ulcer disease and the patient has undergone previous gastric surgery for a bleeding ulcer back in the 90s. He came in with abdominal pain and distention of a few days duration. He was unable to pass any bowel movements or flatus. No reported diarrhea. He was having nausea and emesis. He was admitted for small bowel obstruction. NG tube was placed in the emergency department. Approximately 400 mL of drainage was immediately obtained. A CAT scan of the abdomen was also done that showed and confirmed the presence of small bowel obstruction. There was bilateral small bowel consistent with mechanical small bowel obstruction at the level of the distal jejunum or proximal ileum. Obstruction was no compared to the old examination. Yesterday afternoon, the patient a chest to the intensive care unit as the patient started having coffee-ground material coming out of the NG. He also was having episodic hematemesis. The patient vomited approximately 5 mL of blood. The patient was given a total of 4 L of IV fluids. The patient's hemoglobin dropped from a baseline of 17.6 down to 11.5 this morning. His last bout of emesis of blood was earlier this morning. Gen. surgery was informed that the patient will be having a gastroscopy. Meanwhile, the patient claims that his been passing some flatus today. NG tube still in place. Abdomen is distended. It's less tender compared to yesterday and the patient is receiving morphine 4 mg every 3 hours for pain control and addition to Dilaudid 1 mg every 3 hours for pain control. He is on IV fluids running at 150 mL an hour of normal saline. General surgeries on the case. Is covered with IV Zosyn. The white cell count is not elevated. His lactic acid level started about 2.4 and dropped down to 1.6. Calcium is at 9.1. On 10/05/2019 the patient is postop day #1. The patient was taken to the operating room yesterday for an upper GI bleed and small bowel obstruction. The patient was found to have adhesion and complete small bowel obstruction and strangulation addition to diffuse gastric bleeding. He underwent expiratory laparotomy and small bowel resection with 5 cm of distal jejunum resected. He also underwent small bowel enterotomy and drainage of small bowel contents of 1.5 L and peritoneal abdominal washout of 2 L and intraoperative EGD with gastric irrigation. The patient postop was kept intubated and was moved to the intensive care unit. I was told that he was a very difficult intubation and fiberoptic sent to be used. Post op chest x-ray showed right upper lobe atelectasis with seems to be improving on today's chest x-ray. He has excessive respiratory secretions. This morning, he remains on assist control mode at the rate of 14 with a tidal volume of 500 and FiO2 of 50% with a PEEP of 5. He is on normal saline at the rate of 150 mL an hour. His was sedated with propofol at 50 mics and is also on 1.5 g per KG per minute of fentanyl infusion. He is not requiring any pressors. His cardiac rhythm is sinus. NG tube in place and output has been in the order of 100 mL since he arrived from the operating room. Abdominal wound is clean and intact and the patient has a VAC system, PREVENA in place. No direct. His current hemoglobin is stable at 10.7. The patient received a total of 1 units of packed RBC as the patient was having significant blood loss. The antibiotic coverage remain the same and the patient is on IV Zosyn. His is having Dilaudid for pain control. On 10/06/2019 the patient is postop day #2. The patient is extubated. He is currently doing well. NG tube has been removed. No nausea. No vomiting. No emesis. No evidence of any GI bleed. Abdominal wound is dry clean and intact. A VAC system was then applied to the abdominal wound and output is minimal at t his point in time. He is receiving Dilaudid 1 mg every 3 hours for pain control in addition to morphine 4 mg every 4 hours when necessary. He remains on IV Zosyn. He remains on IV Protonix. His hemoglobin is stable at 10.5. Is using incentive spirometer. No flatus. No bowel activity yet. As mentioned earlier, NG tube has been removed. No altered mentation. No other significant complaints otherwise for now. General surgeries on the case. Patient was evaluated today on 10/07/19, remains in the ICU as an overflow, his postoperative day #3. He is on room air, satting at 96%. His IV fluid is 1 25 mL per hour. Chest x-ray showed minimal atelectasis in the right upper lobe. Patient remains nothing by mouth except for ice chips. Metoprolol was added at 25 mg twice a day for sinus tachycardia. Continues to have significant nasogastric output via nasogastric tube about 600 mL out. Patient vomited once last night around the nasogastric tube. Abdomen remains a bit distended, and no bowel movements yet. Labs were reviewed relatively normal CBC and basic metabolic profile normal renal profile. Patient is asymptomatic. Reevaluated today on 10/08/19, patient is doing great, remains on room air, nasogastric tube remains in place, saturations 97% on room air. Chest x-ray showed improvement in his right upper lobe atelectasis. Remains on IV fluid at 1 25 mL per hour. Remains on Zosyn. And the plan is to transfer the patient out of the ICU to a regular medical floor today. He is presently MedSurg overflow in the ICU. No bowel movements yet. However the patient is passing gas. Objective - Vital Signs Vital signs: Vital Signs Temp 98.9 F 10/08/19 11:20 Pulse 94 10/08/19 11:20 Resp 16 10/08/19 11:20 BP 135/91 10/08/19 11:20 Pulse Ox 96 10/08/19 11:20 Intake & Output 10/07/19 10/08/19 10/08/19 18:59 06:59 18:59 Intake Total 1550 1250 250 Output Total 485 3100 50 Balance 1065 -1850 200 Weight 109.5 kg 109.5 kg Intake: IV 1550 1000 250 Sodium Chloride 0.9% 1, 1250 1000 250 000 ml @ 125 mls/hr IV . [facility] Rx#:[id number] Zosyn 300 Oral 250 Output: Gastric Drainage 2600 Urine 485 500 50 Other: Voiding Method Indwelling Catheter Indwelling Catheter Indwelling Catheter - Exam Physical Exam: Revealed a 59-year-old -[place] male, in no distress. Head: Atraumatic normocephalic. HEENT:[Neck is supple.] [No neck masses.] [No thyromegaly.] [No JVD.] PERRLA, EOMI, nasogastric tube remains in place. Chest: [Symmetrical chest expansion, crackles at the bases, no rhonchi and no wheezes..] Cardiac Exam: [Normal S1 and S2, no S3 gallop, no murmur.] Abdomen: [Distended, but not tender. Diminished bowel sounds. no megaly, no rebound, no guarding, Extremities: [No clubbing, trace of bipedal edema, no cyanosis.] Neurological Exam: [No focal neurologic deficit.] Alert and oriented 3. Psychiatric: Normal mood, affect and normal mental status examination. - Labs CBC & Chem 7: 10/08/19 04:29 10/08/19 04:29 Labs: Abnormal Lab Results - Last 24 Hours (Table) 10/08/19 10/08/19 Range/Units 04:29 04:29 RBC 3.45 L (4.30-5.90) m/uL Hgb 10.1 L (13.0-17.5) gm/dL Hct 31.8 L (39.0-53.0) % Lymphocytes # 0.6 L (1.0-4.8) k/uL Chloride 113 H (98-107) mmol/L BUN 22 H (9-20) mg/dL Total Protein 5.4 L (6.3-8.2) g/dL Albumin 2.8 L (3.5-5.0) g/dL Microbiology - Last 24 Hours (Table) 10/05/19 00:00 Gram Stain - Final Sputum Sputum Culture - Final Christiane albicans Assessment and Plan Assessment: Impression: Small bowel obstruction, postoperative day #4, status post exploratory laparotomy and small bowel resection. Upper GI bleeding status post EGD, however there was diffuse gastritis and duodenitis. Hemoglobin remains stable. History of peptic ulcer disease previous perforation in 1990. Minimal right upper lobe atelectasis, not clinically significant. History of colonic polyps Recommendation: Continue IV fluid. Continue nasogastric tube Continue IV Protonix. Continue empiric antibiotics. Continue pain control. Continue incentive spirometry. Transfer patient to a regular medical floor. Time with Patient: Less than 30
[2019-10-08] MEDS: SODIUM CHLORIDE 0.9% 1,000 ML IV SCH ×3 (14:46→21:39)
[2019-10-08] MEDS ORDERED: ONDANSETRON 4 MG/2 ML VIAL IVP PRN (15:25)
[2019-10-08] MEDS: METOCLOPRAMIDE 5 MG/ML 2 ML VIAL IVP SCH ×2 (15:40→23:34)
--- NOTE | 2019-10-08 16:53 | P.PN ---
Subjective Progress Note Date: 10/08/19 Progress note date of service 10/08/2019. Patient seen and examined today . Patient seen in the ICU in 252. Patient was conscious alert oriented he had the NG tube in place, status post bowel obstruction small bowel with resection of 4 cm of jejunum. Vital signs stable No specific complain except unable to pass gases yet he felt that he had gargling of his bowel. Seen by Dr. Sanchez and Dr. Laboy. And the planned for him ordered by midline IV by Dr. Sanchez. Also planned to be transferred to [facility] floor. He had spontaneous breathing with off the vent. HEENT negative excepted that he had nasogastric tube for suction uncontrolled the bowel sound heard or pass gases. Neck was supple no JVD no thyromegaly no lymphadenopathy trachea midline. Chest clear with normal breath sound. Heart regular sinus rhythm with the distention of the abdomen occasionally tachycardia in the low range. Abdomen: Positive distention no tenderness on percussion. Normal bowel sound so far however patient feels gargling with questionable start of the bowel sounds. Extremities no edema and thrombotic stocking. Neurologically stable postoperative no evidence of delirium. Stable mood. Assessment: Postoperative day 3, hemodynamically stable. Seen by surgeon and heading pinner. Plan we'll continue the current treatment and will continue follow the patient. Objective - Vital Signs Vital signs: Vital Signs Temp 99.5 F 10/08/19 14:40 Pulse 111 H 10/08/19 14:40 Resp 18 10/08/19 14:40 BP 144/84 10/08/19 14:40 Pulse Ox 96 10/08/19 14:40 Intake & Output 10/07/19 10/08/19 10/08/19 18:59 06:59 18:59 Intake Total 1550 1250 825 Output Total 485 3100 1500 Balance 1065 -1850 -675 Weight 109.5 kg 109.5 kg Intake: IV 1550 1000 475 Sodium Chloride 0.9% 1, 1250 1000 375 000 ml @ 125 mls/hr IV . Q8H [facility] Rx#:[id number] Zosyn 300 100 Oral 250 350 Output: Gastric Drainage 2600 1300 Urine 485 500 200 Other: Voiding Method Indwelling Catheter Indwelling Catheter Indwelling Catheter - Labs CBC & Chem 7: 10/08/19 04:29 10/08/19 04:29 Labs: Abnormal Lab Results - Last 24 Hours (Table) 10/08/19 10/08/19 Range/Units 04:29 04:29 RBC 3.45 L (4.30-5.90) m/uL Hgb 10.1 L (13.0-17.5) gm/dL Hct 31.8 L (39.0-53.0) % Lymphocytes # 0.6 L (1.0-4.8) k/uL Chloride 113 H (98-107) mmol/L BUN 22 H (9-20) mg/dL Total Protein 5.4 L (6.3-8.2) g/dL Albumin 2.8 L (3.5-5.0) g/dL
[2019-10-08 18:18] LABS: Glucose,Whole Blood 88 mg/dL (75-99)
[2019-10-09 00:47] LABS: Glucose,Whole Blood 86 mg/dL (75-99)
[2019-10-09] MEDS: MAG HYDROX/AL HYDROX/SIMETH 30 ML CUP PO SCH ×7 (01:07→22:47)
[2019-10-09] MEDS: HYDROmorphone 1 MG/ML 1 ML SYRINGE IVP PRN ×4 (03:08→19:34)
[2019-10-09] MEDS: PIPERACILLIN-TAZOBACTAM 3.375 GM in SODIUM CHLORIDE 0.9% 100 ML IVPB SCH ×3 (03:12→19:24)
[2019-10-09] MEDS: SODIUM CHLORIDE 0.9% 1,000 ML IV SCH ×2 (05:13→16:17)
[2019-10-09 05:48] LABS: Glucose,Whole Blood 86 mg/dL (75-99)
[2019-10-09] MEDS: METOCLOPRAMIDE 5 MG/ML 2 ML VIAL IVP SCH ×4 (06:04→22:47)
[2019-10-09] MEDS: KETOROLAC 30 MG/ML 1 ML VIAL IVP SCH ×4 (06:04→22:47)
[2019-10-09 09:02] LABS: Ionized Calcium 5.3 mg/dL (4.5-5.3)
[2019-10-09 09:17] LABS: African American GFR (CKD) >90 (>60 ml/min/1.73 sqM); Anion Gap 9 mmol/L; Blood Urea Nitrogen 21 mg/dL (9-20); Calcium 9.3 mg/dL (8.4-10.2); Carbon Dioxide 24 mmol/L (22-30); Chloride 109 mmol/L (98-107); Glucose 83 mg/dL (74-99); Magnesium 2.2 mg/dL (1.6-2.3); Non-African American GFR(CKD) >90 (>60 ml/min/1.73 sqM); Phosphorus 3.3 mg/dL (2.5-4.5); Potassium 3.9 mmol/L (3.5-5.1); Sodium 142 mmol/L (137-145)
[2019-10-09] MEDS: METOPROLOL TARTRATE 50 MG TAB PO SCH ×2 (09:17→20:46)
[2019-10-09] MEDS: PANTOPRAZOLE 40 MG/10 ML VIAL IVP SCH ×2 (09:17→20:46)
--- NOTE | 2019-10-09 10:20 | P.PN ---
Subjective Progress Note Date: 10/09/19 (Start of passing gases) Progress note date of service 10/09/2019. Patient seen evaluated in the fourth surgical floor [facility]. Patient is conscious alert oriented 3. He has catheter and NG tube. His vital signs stable with the blood pressure controlled. On examination: Conscious alert oriented no symptoms of headache or dizziness. Head was normocephalic and atraumatic, nasogastric tube, he starting ice ships. Pupil was equal reactive. Neck was supple no JVD no thyromegaly no lymphadenopathy trachea midline. Chest: Clear to auscultation and percussion no wheezes no rhonchi's. Heart regular sinus rhythm compensated no evidence of abnormalities. Abdomen: He still distended abdomen and bowel sound is still diminished but he had passing flatulence. And he is happy with that. Extremities: He has atherothrombotic stocking, no edema of the lower extremities, he is on Yoselin chair and they started to standing him up and ambulate. Neurologically stable. Assessment: Status post small bowel mechanical obstruction. Status post exploratory laparotomy by Dr. Park. EGD was diffuse gastritis. Pathology reports indicating ischemic changes at the resection site 4 cm from distal jejunum. Hypertension is controlled. Remote history of peptic ulcer disease, no ulcer on the EGD done by Dr. Nara miguel. Plan we'll continue the current treatment her the surgeon Monitoring intake and output Monitoring the blood pressure Past surgical of small bowel resection protocol. Objective - Vital Signs Vital signs: Vital Signs Temp 97.7 F 10/09/19 07:00 Pulse 100 10/09/19 07:00 Resp 17 10/09/19 07:00 BP 146/83 10/09/19 07:00 Pulse Ox 96 10/09/19 07:00 Intake & Output 10/08/19 10/09/19 10/09/19 18:59 06:59 18:59 Intake Total 1365 2713 Output Total 2600 2800 Balance -1235 -87 Weight 109.5 kg Intake: IV 475 2000 Sodium Chloride 0.9% 1, 375 2000 000 ml @ 125 mls/hr IV . Q8H [facility] Rx#:[id number] Zosyn 100 Intake, IV Titration 100 Amount Piperacillin-Tazobactam 3 100 .375 gm In Sodium Chloride 0.9% 100 ml @ 25 mls/hr IVPB Q8[facility] Rx#: [id number] Oral 890 613 Output: Gastric Drainage 2100 2300 Urine 500 500 Other: Voiding Method Indwelling Catheter Indwelling Catheter Indwelling Catheter - Labs CBC & Chem 7: 10/08/19 04:29 10/09/19 07:52 Labs: Abnormal Lab Results - Last 24 Hours (Table) 10/09/19 Range/Units 07:52 Chloride 109 H (98-107) mmol/L BUN 21 H (9-20) mg/dL
--- NOTE | 2019-10-09 10:35 | P.PN ---
<Yessy Montes - Last Filed: 10/09/19 14:02> Subjective Progress Note Date: 10/09/19 CHIEF COMPLAINT: Small bowel obstruction HISTORY OF PRESENT ILLNESS: Patient is status post open lysis of adhesions, small bowel resection, and intraoperative EGD performed on 10/04/2019. Po stoperative day #5. Patient examined this morning. He is sitting in the chair. NG tube remains to low intermittent suction. Patient is tolerating ice chips. He reports passing flatus overnight. No bowel movement. PHYSICAL EXAM: VITAL SIGNS: Reviewed GENERAL: Well-developed in no acute distress. HEENT: No sclera icterus. Extraocular movements grossly intact. Moist buccal mucosa. Head is atraumatic, normocephalic. Hears conversational speech. No nasal drainage. NECK: Supple without lymphadenopathy. CHEST: Non-labored respirations and equal bilateral excursions. CARDIOVASCULAR: Regular rate with regular rhythm. Mildly tachycardic. Palpable 2+ radial pulses. ABDOMEN: Soft. Distended, but improving from yesterday. NG tube to low intermittent suction. PREVENA wound vac noted. MUSCULOSKELETAL: No clubbing or cyanosis. NEUROLOGIC: No focal or lateralizing signs. Cranial nerves II through XII grossly intact. PSYCH: Appropriate affect. Alert and oriented to person, place and time. SKIN: Well perfused. Good skin turgor. ASSESSMENT: 1. Small bowel obstruction on admission 2. Dehydration, [id number] on admission 3. Acute kidney injury present on admission secondary to dehydration 4. Hematemesis 5. Tachycardia PLAN: -Discontinue NG tube -Begin clear liquid diet. Advance as tolerated to regular diet. No need to begin PPN today -Discontinue Tavarez catheter -Pain control -Incentive spirometry -Increase activity as tolerated Nurse practitioner note has been reviewed by physician. Signing provider agrees with the documented findings, assessment, and plan of care. Objective - Vital Signs Vital signs: Vital Signs Temp 97.7 F 10/09/19 07:00 Pulse 100 10/09/19 07:00 Resp 17 10/09/19 07:00 BP 146/83 10/09/19 07:00 Pulse Ox 96 10/09/19 07:00 Intake & Output 10/08/19 10/09/19 10/09/19 18:59 06:59 18:59 Intake Total 1365 2713 Output Total 2600 2800 Balance -1235 -87 Weight 109.5 kg Intake: IV 475 2000 Sodium Chloride 0.9% 1, 375 2000 000 ml @ 125 mls/hr IV . Q8H [facility] Rx#:[id number] Zosyn 100 Intake, IV Titration 100 Amount Piperacillin-Tazobactam 3 100 .375 gm In Sodium Chloride 0.9% 100 ml @ 25 mls/hr IVPB Q8[facility] Rx#: [id number] Oral 890 613 Output: Gastric Drainage 2100 2300 Urine 500 500 Other: Voiding Method Indwelling Catheter Indwelling Catheter Indwelling Catheter - Labs CBC & Chem 7: 10/08/19 04:29 10/09/19 07:52 Labs: Abnormal Lab Results - Last 24 Hours (Table) 10/09/19 Range/Units 07:52 Chloride 109 H (98-107) mmol/L BUN 21 H (9-20) mg/dL <Myrna Clinton - Last Filed: 10/09/19 20:58> Subjective Patient seen and evaluated with nurse practitioner above with additional findings and recommendations below. Overnight, patient had temperature 101.0. He's afebrile this afternoon. He reports improved abdominal pain. He had some improvement of his heart rate in the low 100s. He still has persistent hypertension despite metoprolol 25 mg by mouth twice a day. Recommend increase metoprolol to 50 mg twice a day for persistent tachycardia including hypertension. May start full liquid diet with possible advancement to soft diet as tolerated. Possible discharge tomorrow pending tolerating diet Objective - Vital Signs Vital signs: Vital Signs Temp 98.7 F 10/09/19 19:22 Pulse 103 H 10/09/19 19:22 Resp 18 10/09/19 19:22 BP 157/91 10/09/19 19:22 Pulse Ox 98 10/09/19 19:22 Intake & Output 10/09/19 10/09/19 10/10/19 06:59 18:59 06:59 Intake Total 2713 Output Total 2800 1175 Balance -87 -1175 Weight 106.4 kg Intake: IV 2000 Sodium Chloride 0.9% 1, 2000 000 ml @ 125 mls/hr IV . Q8H [facility] Rx#:[id number] Intake, IV Titration 100 Amount Piperacillin-Tazobactam 3 100 .375 gm In Sodium Chloride 0.9% 100 ml @ 25 mls/hr IVPB Q8H [facility] Rx#: [id number] Oral 613 Output: Gastric Drainage 2300 550 Urine 500 425 Uretheral (Tavarez) 250 Emesis 200 Other: Voiding Method Indwelling Catheter Toilet Urinal # Bowel Movements 1 - Labs CBC & Chem 7: 10/08/19 04:29 10/09/19 07:52 Labs: Abnormal Lab Results - Last 24 Hours (Table) 10/09/19 10/09/19 10/09/19 Range/Units 07:52 11:35 16:50 Chloride 109 H (98-107) mmol/L BUN 21 H (9-20) mg/dL POC Glucose (mg/dL) 122 H 134 H (75-99) mg/dL Assessment and Plan (1) History of gastric ulcer Current Visit: Yes Status: Acute Code(s): Z87.19 - PERSONAL HISTORY OF OTHER DISEASES OF THE DIGESTIVE SYSTEM SNOMED Code(s): 910901117 (2) Gastritis with bleeding Current Visit: Yes Status: Acute Code(s): K29.71 - GASTRITIS, UNSPECIFIED, WITH BLEEDING SNOMED Code(s): 0872926 (3) Dehydration Current Visit: Yes Status: Acute Code(s): E86.0 - DEHYDRATION SNOMED Code(s): 16477698 (4) Acute kidney injury (HAMZAH) with acute tubular necrosis (ATN) Current Visit: Yes Status: Acute Code(s): N17.0 - ACUTE KIDNEY FAILURE WITH TUBULAR NECROSIS SNOMED Code(s): 623284989 (5) Nausea & vomiting Current Visit: Yes Status: Acute Code(s): R11.2 - NAUSEA WITH VOMITING, UNSPECIFIED SNOMED Code(s): 84819026 (6) Small bowel obstruction Current Visit: Yes Status: Acute Code(s): K56.609 - UNSP INTESTNL OBST, UNSP TO PARTIAL VERSUS COMPLETE OBST SNOMED Code(s): 086502471
[2019-10-09 11:37] LABS: Glucose,Whole Blood 122 mg/dL (75-99)
--- NOTE | 2019-10-09 12:21 | CDI ---
Documentation Clarification Form Date: 10/09/2019 12:17:55 PM From: Michelle Hein Admit Date: 10/03/2019 03:01:00 AM Patient Name: Yohannes Johnston Visit Number: [id number] Discharge Date: ATTENTION: The Clinical Documentation Specialists (CDI) and [facility] Coding Staff appreciate your assistance in clarifying documentation. Please respond to the clarification below the line at the bottom and electronically sign. The CDI & [facility] Coding staff will review the response and follow-up if needed. Please note: Queries are made part of the Legal Health Record. If you have any questions, please contact the author of this message via ITS. Dr. Ronak Gibbs, A documented diagnosis of Acute Hypoxic Respiratory Failure following abdominal surgery in Critical Care progress notes 10/04 and 10/05 - which may lack sufficient clinical evidence/support. History/Risk Factors: 59-year-old male presents to the ED with abdominal pain for three days with no bowel movement. Medical history peptic ulcer perforation with repair in 1990, chronic COPD, essential HTN, history of tobacco use. BMI 34 and hyperparathyroidism. Clinical Indicators: 10/03 Exploratory laparotomy with lysis of adhesions and small bowel resection. Small bowel enterotomy with drainage. Intraoperative upper endoscopy with irrigation. Anesthesia start time 1552 and Anesthesia end time 1909. Critical Care progress note 10/04 The patient postop was kept intubated and was moved to the intensive care unit. I was told that he was a very difficult intubation and fiberoptic sent to be used. He has excessive respiratory secretions This morning the patient remains on assist control mode at the rate of 14 with a tidal volume of 500 and FiO2 of 50% with a PEEP of 5. 6/5Per Operative Note: Condition: critical, disposition: ICU. Postoperative diagnoses Complete small bowel obstruction with strangulation due to adhesive band from previous lower midline incision. Difficult fiberoptic intubation, Mallampati 4+. 10/03 Pre-Op CXR Minimal subsegmental atelectasis. 10/04 CXR Minimal Improvement in the right upper lobe atelectasis Treatment: Fiberoptic intubation Mechanical Vent: AC 14, TV 450, FIO2 50%, PEEP 5 10/04/ 1209 Patient was extubated to 4L NC Spo2 94% Duoneb INH Q 4 hrs and Q@ hrs PRN SOB Based on the clinical evidence and your professional judgment, do you feel Acute Hypoxic Respiratory Failure is a valid diagnosis? Acute Hypoxic Respiratory Failure secondary to (please specify) as evidenced by (please specify) Acute Hypoxic Respiratory Failure ruled out Standard Post-operative Vent management patient remained intubated in ICU 10/03 19:30 and extubated 10/04 12:00 Other (please specify diagnosis) Unable to determine (Last Revision: May 2019) Acute Hypoxic Respiratory Failure ruled out Standard Post-operative Vent management patient remained intubated in ICU 10/03 19:30 and extubated 10/04 12:00 KAILYN
[2019-10-09] MEDS ORDERED: MVI, ADULT NO.4 WITH VIT K 10 ML, TRACE (CONC-1ML/DOSE) 1 ML in AMINO ACID 4.25%-D10W+L... IV ONE ×3 (13:00)
[2019-10-09] MEDS ORDERED: FAT EMULSION 20% 250 ML IV SCH (13:00)
[2019-10-09] MEDS: HYDROcodone/APAP 5-325MG 1 EACH TAB PO PRN (15:08)
--- NOTE | 2019-10-09 15:25 | CDI ---
Documentation Clarification Form Date: 10/09/2019 03:21:28 PM From: Michelle Hein RN CCDS Admit Date: 10/03/2019 03:01:00 AM Patient Name: Yohannes Johnston Visit Number: [id number] Discharge Date: ATTENTION: The Clinical Documentation Specialists (CDI) and [facility] Coding Staff appreciate your assistance in clarifying documentation. Please respond to the clarification below the line at the bottom and electronically sign. The CDI & [facility] Coding staff will review the response and follow-up if needed. Please note: Queries are made part of the Legal Health Record. If you have any questions, please contact the author of this message via ITS. Dr. yMrna Clinton OP note 10/03 notes: Patient with greater than Mallampati 4, difficult intubation. History/Risk Factors: 59-year old male presents to the ED with abdominal pain and no bowel movement for three days. Medical History COPD, essential HTN, history of tobacco use and Hyperparathyroidism. Clinical Indicators: Procedure performed: on 10/03 Exploratory laparotomy with lysis of adhesions and small bowel resection Small bowel decompressed 1.5 L enteric content evacuated for abdominal closure. Intraoperative upper Endoscopy with Irrigation. Remained intubated until 10/04 12:00 pm extubation. Medical Diagnoses after Surgery : Acute diffuse superficial gastritis and duodenitis with bleeding, Complete SBO with strangulation due to midline adhesive band epigastrium, Hemorrhagic Shock, HTN, Morbid Obesity, BMI 34.9, Treatment: Fiberoptic Intubation by Anesthesia In your professional opinion, can you please clarify difficult intubation? Difficult intubation 2nd to patient comorbid conditions Difficult intubation 2nd to please specify Other, please specify Unable to determine (Last Revision: June 2019) Difficult intubation 2nd to fiberoptic intubation required per anesthesia. (Please see anesthesia records for details and appropriate professional opinion) KM 10/09/19 21:05 MTDD
[2019-10-09 16:51] LABS: Glucose,Whole Blood 134 mg/dL (75-99)
--- NOTE | 2019-10-09 21:01 | P.PN ---
Progress Note - Text Progress Note Date: 10/09/19 Patient reevaluate this evening after having emesis from soft diet. He reports that he rushed his meal, ate too much, and couldn't tolerate trudy rosario. Reports mild abdominal distention however he did have a bowel movement this evening. He reports tolerating Vicodin in the past however intolerant to Dilaudid with nausea. Will keep diet of full liquid diet upon discharge. Will likely need metoprolol 50 mg twice daily for discharge. Overall patient confirms moderate clinical improvement since admission and is agreeable for discharge when stable.
[2019-10-10] MEDS ORDERED: METOCLOPRAMIDE 5 MG/ML 2 ML VIAL ONE
[2019-10-10] MEDS ORDERED: SODIUM CHLORIDE 0.9% 1,000 ML BAG ONE
[2019-10-10] MEDS ORDERED: HYDROmorphone 1 MG/ML 1 ML SYRINGE ONE
[2019-10-10] MEDS ORDERED: KETOROLAC 30 MG/ML 1 ML VIAL ONE
[2019-10-10] MEDS ORDERED: MAG HYDROX/AL HYDROX/SIMETH 30 ML CUP ONE ×2
[2019-10-10 03:46] LABS: Glucose,Whole Blood 104 mg/dL (75-99)
[2019-10-10] MEDS ORDERED: 1: MVI, ADULT NO.4 WITH VIT K 10 ML, TRACE (CONC-1ML/DOSE) 1 ML in AMINO ACID 4.25%-D10W IV SCH ×3 (05:00)
[2019-10-10] MEDS: HYDROmorphone 1 MG/ML 1 ML SYRINGE IVP PRN (05:12)
[2019-10-10 05:30] LABS: Glucose,Whole Blood 93 mg/dL (75-99)
[2019-10-10] MEDS: KETOROLAC 30 MG/ML 1 ML VIAL IVP SCH (05:57)
[2019-10-10] MEDS: METOCLOPRAMIDE 5 MG/ML 2 ML VIAL IVP SCH ×2 (05:57→12:01)
[2019-10-10 08:04] LABS: Ionized Calcium 5.6 mg/dL (4.5-5.3)
[2019-10-10 08:17] VITALS: BP 138/82; PULSE 86; RESP 16; TEMP 98.3
[2019-10-10 08:19] LABS: African American GFR (CKD) >90 (>60 ml/min/1.73 sqM); Anion Gap 7 mmol/L; Blood Urea Nitrogen 18 mg/dL (9-20); Calcium 9.4 mg/dL (8.4-10.2); Carbon Dioxide 27 mmol/L (22-30); Chloride 105 mmol/L (98-107); Glucose 95 mg/dL (74-99); Magnesium 2.2 mg/dL (1.6-2.3); Non-African American GFR(CKD) >90 (>60 ml/min/1.73 sqM); Phosphorus 3.2 mg/dL (2.5-4.5); Potassium 3.4 mmol/L (3.5-5.1); Sodium 139 mmol/L (137-145); Triglycerides 143 mg/dL (<150)
[2019-10-10] MEDS: MAG HYDROX/AL HYDROX/SIMETH 30 ML CUP PO SCH ×3 (09:29→11:38)
[2019-10-10] MEDS: SODIUM CHLORIDE 0.9% 1,000 ML IV SCH (09:30)
[2019-10-10] MEDS: PIPERACILLIN-TAZOBACTAM 3.375 GM in SODIUM CHLORIDE 0.9% 100 ML IVPB SCH ×2 (09:31→12:00)
--- NOTE | 2019-10-10 09:49 | P.PN ---
<Yessy Montes Lamar - Last Filed: 10/10/19 09:47> Subjective Progress Note Date: 10/10/19 CHIEF COMPLAINT: Small bowel obstruction HISTORY OF PRESENT ILLNESS: Patient is status post open lysis of adhesions, small bowel resection, and intraoperative EGD performed on 10/04/2019. Po stoperative day #6. Patient examined this morning. He is sitting in the chair. He had an episode of emesis yesterday evening. Diet was downgraded to full liquids. No further nausea or vomiting. He reports having 4 bowel movements overnight. Blood pressure and heart rate improved. PHYSICAL EXAM: VITAL SIGNS: Reviewed GENERAL: Well-developed in no acute distress. HEENT: No sclera icterus. Extraocular movements grossly intact. Moist buccal mucosa. Head is atraumatic, normocephalic. Hears conversational speech. No nasal drainage. NECK: Supple without lymphadenopathy. CHEST: Non-labored respirations and equal bilateral excursions. CARDIOVASCULAR: Regular rate with regular rhythm. Mildly tachycardic. Palpable 2+ radial pulses. ABDOMEN: Soft. Distended. PREVENA wound vac noted. MUSCULOSKELETAL: No clubbing or cyanosis. NEUROLOGIC: No focal or lateralizing signs. Cranial nerves II through XII grossly intact. PSYCH: Appropriate affect. Alert and oriented to person, place and time. SKIN: Well perfused. Good skin turgor. ASSESSMENT: 1. Small bowel obstruction on admission 2. Dehydration, [id number] on admission 3. Acute kidney injury present on admission secondary to dehydration 4. Hematemesis 5. Tachycardia PLAN: -Continue full liquid diet -Pain control -Incentive spirometry -Increase activity as tolerated -Optifoam dressing ordered. Discontinue PREVENA wound vac today -Possible discharge home this afternoon Nurse practitioner note has been reviewed by physician. Signing provider agrees with the documented findings, assessment, and plan of care. Objective - Vital Signs Vital signs: Vital Signs Temp 98.3 F 10/10/19 07:36 Pulse 86 10/10/19 07:36 Resp 16 10/10/19 07:36 BP 138/82 10/10/19 07:36 Pulse Ox 97 10/10/19 07:36 Intake & Output 10/09/19 10/10/19 10/10/19 18:59 06:59 18:59 Output Total 1175 Balance -1175 Weight 106.4 kg Output: Gastric Drainage 550 Urine 425 Uretheral (Tavarez) 250 Emesis 200 Other: Voiding Method Toilet Toilet Toilet Urinal Urinal Urinal # Voids 2 # Bowel Movements 1 - Labs CBC & Chem 7: 10/08/19 04:29 10/10/19 07:02 Labs: Abnormal Lab Results - Last 24 Hours (Table) 10/09/19 10/09/19 10/10/19 Range/Units 11:35 16:50 02:06 Potassium (3.5-5.1) mmol/L POC Glucose (mg/dL) 122 H 134 H 104 H (75-99) mg/dL Ionized Calcium Marina (4.5-5.3) mg/dL 10/10/19 Range/Units 07:02 Potassium 3.4 L (3.5-5.1) mmol/L POC Glucose (mg/dL) (75-99) mg/dL Ionized Calcium [place] 5.6 H (4.5-5.3) mg/dL <Myrna Clinton N - Last Filed: 10/10/19 23:08> Subjective Patient seen and evaluated nurse practitioner. Patient denies any further nausea and vomiting. He's passing moderate flatus and having moderate bowel movements. Dressing at midline changed by me. He may be discharged home with follow-up in the office in 5 days. May shower. Continue dressing. Diet as tolerated. Objective - Vital Signs Vital signs: Vital Signs Temp 98.3 F 10/10/19 07:36 Pulse 86 10/10/19 07:36 Resp 16 10/10/19 07:36 BP 138/82 10/10/19 07:36 Pulse Ox 97 10/10/19 07:36 Intake & Output 10/10/19 10/10/19 10/11/19 06:59 18:59 06:59 Intake Total 540 Balance 540 Intake: Oral 540 Other: Voiding Method Toilet Toilet Urinal Urinal # Voids 2 4 - Labs CBC & Chem 7: 10/08/19 04:29 10/10/19 07:02 Labs: Abnormal Lab Results - Last 24 Hours (Table) 10/10/19 10/10/19 10/10/19 Range/Units 02:06 07:02 11:37 Potassium 3.4 L (3.5-5.1) mmol/L POC Glucose (mg/dL) 104 H 101 H (75-99) mg/dL Ionized Calcium Marina 5.6 H (4.5-5.3) mg/dL Assessment and Plan (1) History of gastric ulcer Status: Acute Code(s): Z87.19 - PERSONAL HISTORY OF OTHER DISEASES OF THE DIGESTIVE SYSTEM SNOMED Code(s): 418666976 (2) Gastritis with bleeding Status: Acute Code(s): K29.71 - GASTRITIS, UNSPECIFIED, WITH BLEEDING SNOMED Code(s): 6891508 (3) Dehydration Status: Acute Code(s): E86.0 - DEHYDRATION SNOMED Code(s): 21457634 (4) Acute kidney injury (HAMZAH) with acute tubular necrosis (ATN) Status: Acute Code(s): N17.0 - ACUTE KIDNEY FAILURE WITH TUBULAR NECROSIS SNOMED Code(s): 773503047 (5) Nausea & vomiting Status: Acute Code(s): R11.2 - NAUSEA WITH VOMITING, UNSPECIFIED SNOMED Code(s): 46075505 (6) Small bowel obstruction Status: Acute Code(s): K56.609 - UNSP INTESTNL OBST, UNSP TO PARTIAL VERSUS COMPLETE OBST SNOMED Code(s): 142096789
[2019-10-10] MEDS: PANTOPRAZOLE 40 MG/10 ML VIAL IVP SCH (09:50)
[2019-10-10] MEDS: METOPROLOL TARTRATE 50 MG TAB PO SCH (09:50)
[2019-10-10] MEDS: HYDROcodone/APAP 5-325MG 1 EACH TAB PO PRN ×2 (09:56→13:56)
[2019-10-10 11:40] LABS: Glucose,Whole Blood 101 mg/dL (75-99)
--- NOTE | 2019-10-10 13:05 | P.DS ---
Providers Date of admission: 10/03/19 03:01 Expected date of discharge: 10/10/19 Attending physician: Scott Morin Consults: 10/03/19 02:15 Consult Physician Stat Consulting Provider: Myrna Clinton Consult Reason/Comments: Mechanical small bowel obstruction Do you want consulting provider notified?: Yes, Notify in am 10/03/19 19:08 Consult Physician Stat Consulting Provider: Ronak Gibbs Consult Reason/Comments: icu management Do you want consulting provider notified?: Already Contacted Primary care physician: Scott Morin Discharge summary date of service 10/10/2019. Final diagnosis. #1 exploratory laparotomy for small bowel obstruction with resection part 4 cm jejunum. With the underlying pathology indicating ischemic enteritis. #2 small bowel obstruction not resulted symptomatically. #3 GI bleeding underwent intra-operative EGD with diffuse gastritis no ulcer seen. #4 history of peptic ulcer disease repaired in 1990. #5 hypertension with hypertensive heart disease control. #6 underlying depression and anxiety. #7 hyper lipidemia. #8 GI bleeding. ALLERGY: Peanut shellfish. Emergency room. Presentation: Abdominal pain with distention and tympanitic with nausea and vomiting and no flatness or bowel movement. Admission to the surgical floor, consultation with Dr. Clinton the surgeon and patient monitored with the NG tube however found that acidemic teen and drop in hemoglobin with hydration Patient subsequently transferred to the ICU where close monitor with the continue dropping of his hemoglobin and hematocrit and the NG tube suction without improvement of the distention and silent abdomen. Patient subsequently taken to the operative room underwent exploratory laparotomy and resection of 4 cm LV Ronan and and underwent at the same time EGD with no presence of ulceration. Subsequently patient returned to the ICU, he was under intensive care with Dr. Dr. Laboy subsequently extubate the patient and transferred to the surgical floor. Patient subsequently had flatus and passing gases and bowel movement twice. Patient had midline per the surgeon orders and subsequently before he was going to be discharged the decision to remove it or not up to Dr. Park. As patient stable general condition with the blood pressure has been stable through the surgery and will continue his home medication and see him next week in the office. He will be seen by Dr. Park in 5 days for follow-up as well Patient will be discharged today home after clearance from Dr. Clinton the surgeon. Patient Condition at Discharge: Good Plan - Discharge Summary New Discharge Prescriptions: New Hydrocodone/Acetaminophen [Drums 5-325] 1 tab PO Q6HR PRN #10 tab PRN Reason: Pain Metoprolol Tartrate [Lopressor] 50 mg PO BID #60 tab No Action QUEtiapine FUMARATE [SEROquel] 300 mg PO HS Simvastatin [Zocor] 20 mg PO HS Enalapril [Vasotec] 20 mg PO DAILY amLODIPine BESYLATE [Norvasc] 10 mg PO DAILY 7 Days tablet Diclofenac Sodium [Voltaren] 75 mg PO BID Aspirin EC [Ecotrin Low Dose] 81 mg PO DAILY Discharge Medication List QUEtiapine FUMARATE [SEROquel] 300 mg PO HS 09/30/13 [History] Enalapril [Vasotec] 20 mg PO DAILY 06/18/15 [History] Simvastatin [Zocor] 20 mg PO HS 06/18/15 [History] amLODIPine BESYLATE [Norvasc] 10 mg PO DAILY 7 Days tablet 01/09/19 [Rx] Aspirin EC [Ecotrin Low Dose] 81 mg PO DAILY 10/03/19 [History] Diclofenac Sodium [Voltaren] 75 mg PO BID 10/03/19 [History] Hydrocodone/Acetaminophen [Drums 5-325] 1 tab PO Q6HR PRN #10 tab 10/10/19 [Rx] Metoprolol Tartrate [Lopressor] 50 mg PO BID #60 tab 10/10/19 [Rx] Follow up Appointment(s)/Referral(s): Myrna Clinton MD [STAFF PHYSICIAN] - 10/15/19 11:20 am Scott Morin MD [Primary Care Provider] - 1-2 days (Please call office to schedule your appointment.) Activity/Diet/Wound Care/Special Instructions: No driving while taking Drums No lifting over 10 pounds You may shower. No soaking or tub baths Very light activity until you are reevaluated at your follow up appointment with your surgeon Continue full liquid diet
--- NOTE | 2019-10-11 13:05 | CDI ---
Documentation Clarification Form Date: 10/09/2019 12:23:11 PM From: Michelle Hein RN CCDS Admit Date: 10/03/2019 03:01:00 AM Patient Name: Yohannes Johnston Visit Number: [id number] Discharge Date: ATTENTION: The Clinical Documentation Specialists (CDI) and [facility] Coding Staff appreciate your assistance in clarifying documentation. Please respond to the clarification below the line at the bottom and electronically sign. The CDI & [facility] Coding staff will review the response and follow-up if needed. Please note: Queries are made part of the Legal Health Record. If you have any questions, please contact the author of this message via ITS. Dr. Myrna Clinton OP note 10/03 notes: Patient with greater than Mallampati 4, difficult intubation. History/Risk Factors: 59-year old male presents to the ED with abdominal pain and no bowel movement for three days. Medical History COPD, essential HTN, history of tobacco use and Hyperparathyroidism. Clinical Indicators: Procedure performed: on 10/03 Exploratory laparotomy with lysis of adhesions and small bowel resection Small bowel decompressed 1.5 L enteric content evacuated for abdominal closure. Intraoperative upper Endoscopy with Irrigation. Remained intubated until 10/04 12:00 pm extubation. Medical Diagnoses: Acute diffuse superficial gastritis and duodenitis with bleeding, Complete SBO with strangulation due to midline adhesive band epigastrium, Hemorrhagic Shock, HTN, Morbid Obesity, BMI 34.9, Treatment: Fiberoptic Intubation by Anesthesia In your professional opinion, can you please clarify difficult intubation? Difficult intubation 2nd to patient comorbid conditions Difficult intubation 2nd to please specify Other, please specify Unable to determine (Last Revision: June 2019) Patient presents with Mallampati 4 causing difficult intubation. Difficult intubation 2nd to patient comorbid conditions including inherent pre- existing anatomy KM 10/11/19 @ 13:18 DOUGLASD
== END 2019-10-10 14:24 | disposition home or self-care (01) | DRG 329 ==
LOC: EC 22:50 → 4SSUR 10-03 03:01 → 2SICU 10-03 18:28 → 4SSUR 10-08 14:17
PROVIDERS: ADMIT Internal Medicine; ATTEND Internal Medicine
PROC: 0D9670Z Drainage of Stomach with Drainage Device, Via Natural or Artificial Opening (ICD-10-PCS; 2019-10-04)
PROC: 30233N1 Transfusion of Nonautologous Red Blood Cells into Peripheral Vein, Percutaneous Approach (ICD-10-PCS; 2019-10-04)
PROC: 0DB80ZZ Excision of Small Intestine, Open Approach (ICD-10-PCS; principal; 2019-10-04 11:20)
PROC: 0DN80ZZ Release Small Intestine, Open Approach (ICD-10-PCS; principal; 2019-10-04 11:20)
PROC: 05HF33Z Insertion of Infusion Device into Left Cephalic Vein, Percutaneous Approach (ICD-10-PCS; 2019-10-08)
PROC: 3E0336Z Introduction of Nutritional Substance into Peripheral Vein, Percutaneous Approach (ICD-10-PCS; 2019-10-08)
DX: K56.52 Intestinal adhesions [bands] with complete obstruction (principal); N17.0 Acute kidney failure with tubular necrosis; R57.8 Other shock; K29.01 Acute gastritis with bleeding; J96.01 Acute respiratory failure with hypoxia; K29.81 Duodenitis with bleeding; E87.2 Acidosis; D62 Acute posthemorrhagic anemia; J98.11 Atelectasis; Z20.828 Contact with and (suspected) exposure to other viral communicable diseases; I11.9 Hypertensive heart disease without heart failure; J44.9 Chronic obstructive pulmonary disease, unspecified; E21.0 Primary hyperparathyroidism; E66.01 Morbid (severe) obesity due to excess calories; E78.5 Hyperlipidemia, unspecified; F41.1 Generalized anxiety disorder; F32.9 Major depressive disorder, single episode, unspecified; N40.0 Benign prostatic hyperplasia without lower urinary tract symptoms; E55.9 Vitamin D deficiency, unspecified; M19.90 Unspecified osteoarthritis, unspecified site; E86.0 Dehydration; T88.4XXA Failed or difficult intubation, initial encounter; Z68.34 Body mass index [BMI] 34.0-34.9, adult; Z79.82 Long term (current) use of aspirin; Z79.899 Other long term (current) drug therapy; Z86.010 Personal history of colon polyps; Z98.890 Other specified postprocedural states; Z87.11 Personal history of peptic ulcer disease; Z87.891 Personal history of nicotine dependence; Z96.649 Presence of unspecified artificial hip joint; Z91.010 Allergy to peanuts; Z91.013 Allergy to seafood; Z83.49 Family history of other endocrine, nutritional and metabolic diseases; Z83.2 Family history of diseases of the blood and blood-forming organs and certain disorders involving the immune mechanism; Z82.49 Family history of ischemic heart disease and other diseases of the circulatory system; Z81.8 Family history of other mental and behavioral disorders; Z80.9 Family history of malignant neoplasm, unspecified
CPT/HCPCS: 36410; 36415; 36600; 71045; 74018; 74177; 76937; 80048; 80053; 81001; 82150; 82306; 82330; 82805; 83605; 83690; 83735; 83970; 84100; 84478; 85025; 85027; 85610; 85730; 86850; 86900; 86901; 86920; 87070; 87086; 87205; 88307; 94002; 94003; 94640; 96361; 96374; 96375; 96376; 99285

== ENCOUNTER → 2019-10-25 | Outpatient (CLI) | payer OTHER ==
[2019-10-25 15:27] LABS: African American GFR (CKD) 83.5 (60.0-200.0); Anion Gap 8.6 mmol/L (4.00-12.00); BUN/Creat Ratio 10.91 Ratio (12.00-20.00); Calcium 10.5 mg/dL (8.7-10.3); Carbon Dioxide 23.4 mmol/L (21.6-31.8); Magnesium 1.9 mg/dL (1.5-2.4); Non-African American GFR(CKD) 72.1 (60.0-200.0); Potassium 3.8 mmol/L (3.5-5.5)
== END | disposition home or self-care (01) ==
LOC: LABWHC1 09:17
PROVIDERS: ATTEND Internal Medicine
DX: E87.8 Other disorders of electrolyte and fluid balance, not elsewhere classified (principal)
CPT/HCPCS: 36415; 80048; 83735

== ENCOUNTER 2019-11-05 10:05 | Emergency (ER) | payer OTHER ==
[2019-11-05 10:14] VITALS: RESP 18; TEMP 98
[2019-11-05] MEDS ORDERED: SODIUM CHLORIDE 0.9% 1,000 ML IV STA (10:29)
--- NOTE | 2019-11-05 10:36 | ED ---
Abdominal Pain HPI - General Chief Complaint: Abdominal Pain Stated Complaint: abd pain Time Seen by Provider: 11/05/19 10:17 Source: patient, RN notes reviewed Mode of arrival: wheelchair Limitations: no limitations - History of Present Illness Initial Comments: 59-year-old male presents emergency Department from Dr. Clinton's office chief complaint of abdominal pain. Patient had surgery one month ago for bowel obstruction. He did have a bowel resection at this time. He states his obstruction was caused by previous surgery scar tissue. Patient doesn't slight nausea, pain 8 out of 10 which has been worsening. Patient states he saw his primary care physician yesterday in which he had a stitch removed that was remaining. Patient states that her sense of pain worsen. Patient was seen in the office by surgeon sent over for evaluation. He did have a small bowel movement this morning. Denies any fevers or chills. - Related Data Home Medications Medication Instructions Recorded Confirmed Cholecalciferol [Vitamin D3 (25 1,000 unit PO DAILY 11/05/19 11/05/19 Mcg = 1000 Iu)] Docusate [Colace] 100 mg PO DIRECTED 11/05/19 11/05/19 Simvastatin [Zocor] 40 mg PO HS 11/05/19 11/05/19 amLODIPine [Norvasc] 5 mg PO DAILY 11/05/19 11/05/19 Previous Rx's Medication Instructions Recorded Metoprolol Tartrate [Lopressor] 50 mg PO BID #60 tab 10/10/19 Cephalexin [Keflex] 500 mg PO Q6HR #28 cap 11/05/19 Allergies Allergy/AdvReac Type Severity Reaction Status Date / Time peanut Allergy Rash/Hives Verified 11/05/19 10:59 shellfish derived Allergy Rash/Hives Verified 11/05/19 10:59 Review of Systems ROS Statement: Those systems with pertinent positive or pertinent negative responses have been documented in the HPI. ROS Other: All systems not noted in ROS Statement are negative. Past Medical History Past Medical History: Hyperlipidemia, Hypertension Additional Past Medical History / Comment(s): past hx colon polyps, back pain, history of hyperparathyroidism, hypertension, degenerative arthritis, hyperlipidemia, history of peptic ulcer disease from 1990 History of Any Multi-Drug Resistant Organisms: None Reported Past Surgical History: Heart Catheterization Additional Past Surgical History / Comment(s): surg. for perforated ulcer Past Anesthesia/Blood Transfusion Reactions: No Reported Reaction Past Psychological History: Anxiety, Depression Smoking Status: Never smoker Past Alcohol Use History: Occasional Past Drug Use History: Marijuana - Past Family History Mother Family Medical History: No Reported History Brother(s) Family Medical History: No Reported History General Exam Limitations: no limitations General appearance: alert, in no apparent distress Head exam: Present: atraumatic, normocephalic, normal inspection Eye exam: Present: normal appearance, PERRL, EOMI. Absent: scleral icterus, conjunctival injection, periorbital swelling ENT exam: Present: normal exam, normal oropharynx, mucous membranes moist Neck exam: Present: normal inspection, full ROM. Absent: tenderness, meningismus, lymphadenopathy Respiratory exam: Present: normal lung sounds bilaterally. Absent: respiratory distress, wheezes, rales, rhonchi, stridor Cardiovascular Exam: Present: regular rate, normal rhythm, normal heart sounds. Absent: systolic murmur, diastolic murmur, rubs, gallop, clicks GI/Abdominal exam: Present: soft, distended, tenderness, normal bowel sounds, other (Small opening along the incision). Absent: guarding, rebound, rigid Neurological exam: Present: alert, oriented X3 Skin exam: Present: warm, dry, intact, normal color. Absent: rash Course Vital Signs 11/05/19 11/05/19 10:09 11:53 Temperature 98.0 F Pulse Rate 81 84 Respiratory 18 18 Rate Blood Pressure 132/84 141/81 O2 Sat by Pulse 98 Oximetry Medical Decision Making - Medical Decision Making CT was obtained shows evidence of possible enteritis, there is small area of fat stranding for possible infection patient was placed on antibiotics patient's case updated with surgeon. Patient will follow-up office return for any worsening symptoms. - Lab Data Result diagrams: 11/05/19 10:52 11/05/19 10:52 Lab Results 11/05/19 11/05/19 11/05/19 Range/Units 10:52 10:52 10:52 WBC 9.5 (3.8-10.6) k/uL RBC 4.64 (4.30-5.90) m/uL Hgb 12.7 L (13.0-17.5) gm/dL Hct 41.3 (39.0-53.0) % MCV 89.2 (80.0-100.0) fL MCH 27.3 (25.0-35.0) pg MCHC 30.6 L (31.0-37.0) g/dL RDW 15.0 (11.5-15.5) % Plt Count 233 (150-450) k/uL Neutrophils % 82 % Lymphocytes % 9 % Monocytes % 5 % Eosinophils % 2 % Basophils % 0 % Neutrophils # 7.8 H (1.3-7.7) k/uL Lymphocytes # 0.9 L (1.0-4.8) k/uL Monocytes # 0.5 (0-1.0) k/uL Eosinophils # 0.2 (0-0.7) k/uL Basophils # 0.0 (0-0.2) k/uL Hypochromasia Moderate PT 10.3 (9.0-12.0) sec INR 1.0 (<1.2) APTT 18.8 L (22.0-30.0) sec Sodium 138 (137-145) mmol/L Potassium 4.7 (3.5-5.1) mmol/L Chloride 109 H (98-107) mmol/L Carbon Dioxide 22 (22-30) mmol/L Anion Gap 7 mmol/L BUN 12 (9-20) mg/dL Creatinine 0.79 (0.66-1.25) mg/dL Est GFR (CKD-EPI)AfAm >90 (>60 ml/min/1.73 sqM) Est GFR (CKD-EPI)NonAf >90 (>60 ml/min/1.73 sqM) Glucose 100 H (74-99) mg/dL Plasma Lactic Acid Sy (0.7-2.0) mmol/L Calcium 10.5 H (8.4-10.2) mg/dL Total Bilirubin 0.6 (0.2-1.3) mg/dL AST 30 (17-59) U/L ALT 30 (4-49) U/L Alkaline Phosphatase 111 (38-126) U/L Total Protein 7.1 (6.3-8.2) g/dL Albumin 4.4 (3.5-5.0) g/dL Lipase 495 H (23-300) U/L Urine Color Urine Appearance (Clear) Urine pH (5.0-8.0) Ur Specific [place] (1.001-1.035) Urine Protein (Negative) Urine Glucose (UA) (Negative) Urine Ketones (Negative) Urine Blood (Negative) Urine Nitrite (Negative) Urine Bilirubin (Negative) Urine Urobilinogen (<2.0) mg/dL Ur Leukocyte Esterase (Negative) 11/05/19 11/05/19 Range/Units 10:55 11:08 WBC (3.8-10.6) k/uL RBC (4.30-5.90) m/uL Hgb (13.0-17.5) gm/dL Hct (39.0-53.0) % MCV (80.0-100.0) fL MCH (25.0-35.0) pg MCHC (31.0-37.0) g/dL RDW (11.5-15.5) % Plt Count (150-450) k/uL Neutrophils % % Lymphocytes % % Monocytes % % Eosinophils % % Basophils % % Neutrophils # (1.3-7.7) k/uL Lymphocytes # (1.0-4.8) k/uL Monocytes # (0-1.0) k/uL Eosinophils # (0-0.7) k/uL Basophils # (0-0.2) k/uL Hypochromasia PT (9.0-12.0) sec INR (<1.2) APTT (22.0-30.0) sec Sodium (137-145) mmol/L Potassium (3.5-5.1) mmol/L Chloride (98-107) mmol/L Carbon Dioxide (22-30) mmol/L Anion Gap mmol/L BUN (9-20) mg/dL Creatinine (0.66-1.25) mg/dL Est GFR (CKD-EPI)AfAm (>60 ml/min/1.73 sqM) Est GFR (CKD-EPI)NonAf (>60 ml/min/1.73 sqM) Glucose (74-99) mg/dL Plasma Lactic Acid Sy 1.3 (0.7-2.0) mmol/L Calcium (8.4-10.2) mg/dL Total Bilirubin (0.2-1.3) mg/dL AST (17-59) U/L ALT (4-49) U/L Alkaline Phosphatase (38-126) U/L Total Protein (6.3-8.2) g/dL Albumin (3.5-5.0) g/dL Lipase (23-300) U/L Urine Color Yellow Urine Appearance Clear (Clear) Urine pH 7.0 (5.0-8.0) Ur Specific [place] 1.017 (1.001-1.035) Urine Protein Negative (Negative) Urine Glucose (UA) Negative (Negative) Urine Ketones Negative (Negative) Urine Blood Negative (Negative) Urine Nitrite Negative (Negative) Urine Bilirubin Negative (Negative) Urine Urobilinogen <2.0 (<2.0) mg/dL Ur Leukocyte Esterase Negative (Negative) Disposition Clinical Impression: Abdominal wall cellulitis, Abdominal pain Disposition: HOME SELF-CARE Condition: Stable Instructions (If sedation given, give patient instructions): Abdominal Pain (ED) Additional Instructions: Please return to the Emergency Department if symptoms worsen or any other concerns. Prescriptions: Cephalexin [Keflex] 500 mg PO Q6HR #28 cap Is patient prescribed a controlled substance at d/c from ED?: No Referrals: Scott Morin MD [Primary Care Provider] - 1-2 days Time of Disposition: 12:43
[2019-11-05 11:07] LABS: Basophils % (A) 0 %; Eosinophils # (A) 0.2 k/uL (0-0.7); Eosinophils % (A) 2 %; HCT 41.3 % (39.0-53.0); HGB 12.7 gm/dL (13.0-17.5); Hypochromasia Moderate; Lymphocytes # (A) 0.9 k/uL (1.0-4.8); Lymphocytes % (A) 9 %; MCH 27.3 pg (25.0-35.0); MCHC 30.6 g/dL (31.0-37.0); MCV 89.2 fL (80.0-100.0); Mean Platelet Volume 8.3; Monocytes # (A) 0.5 k/uL (0-1.0); Monocytes % (A) 5 %; Neutrophils # (A) 7.8 k/uL (1.3-7.7); Neutrophils % (A) 82 %; Platelet Count 233 k/uL (150-450); RBC 4.64 m/uL (4.30-5.90); WBC 9.5 k/uL (3.8-10.6)
[2019-11-05 11:16] LABS: Appearance,Urine Clear (Clear); Bilirubin,Urine Negative (Negative); Blood,Urine Negative (Negative); Color,Urine Yellow; Glucose,Urine (UA) Negative (Negative); Ketones,Urine Negative (Negative); Leukocyte Esterase,Urine Negative (Negative); Nitrite,Urine Negative (Negative); Protein,Urine Negative (Negative); Specific Gravity,Urine 1.017 (1.001-1.035); Urobilinogen,Urine <2.0 mg/dL (<2.0)
[2019-11-05 11:20] LABS: ALT 30 U/L (4-49); AST 30 U/L (17-59); African American GFR (CKD) >90 (>60 ml/min/1.73 sqM); Albumin 4.4 g/dL (3.5-5.0); Alkaline Phosphatase 111 U/L (38-126); Anion Gap 7 mmol/L; Blood Urea Nitrogen 12 mg/dL (9-20); Calcium 10.5 mg/dL (8.4-10.2); Carbon Dioxide 22 mmol/L (22-30); Chloride 109 mmol/L (98-107); Glucose 100 mg/dL (74-99); Non-African American GFR(CKD) >90 (>60 ml/min/1.73 sqM); Potassium 4.7 mmol/L (3.5-5.1); Sodium 138 mmol/L (137-145); Total Bilirubin 0.6 mg/dL (0.2-1.3); Total Protein 7.1 g/dL (6.3-8.2)
[2019-11-05 11:29] LABS: Prothrombin Time 10.3 sec (9.0-12.0)
[2019-11-05 11:34] LABS: Partial Thromboplastin Time 18.8 sec (22.0-30.0)
[2019-11-05] MEDS ORDERED: HYDROmorphone 1 MG/ML 1 ML SYRINGE IVP STA (11:36)
[2019-11-05] MEDS ORDERED: ONDANSETRON 4 MG/2 ML VIAL IVP STA (11:36)
[2019-11-05 11:54] VITALS: BP 141/81; PULSE 84
--- NOTE | 2019-11-05 12:02 | CT ---
EXAMINATION TYPE: CT abdomen pelvis w con DATE OF EXAM: 11/05/2019 COMPARISON: 10/03/2019 HISTORY: 59-year-old male with abdominal pain TECHNIQUE: Contiguous axial scanning of the abdomen and pelvis following administration of 100 ml Iso cody 300 IV contrast. Delayed images through the kidneys and coronal/sagittal reconstructions perform ed. CT DLP: 1405.8 mGycm Automated exposure control for dose reduction was used. FINDINGS: Heart normal size without pericardial effusion. Dependent atelectasis is noted. No focal liver lesion or biliary ductal dilatation. Portal venous system is patent. Gallbladder borderline hydropic at 4.1 cm wide but without any surrounding inflammation or wall thick ening. Likely due to fasting state. Stable tiny nonspecific 7 mm nodule lateral limb left adrenal gland. Otherwise, right adrenal gland, kidneys, spleen, and pancreas appear within normal limits. Prominent fluid-filled small bowel loops throughout the abdomen. No bowel dilatation is identified. S taple line anterior right mid abdomen from prior small bowel resection and reanastomosis. Thin liquid stool is noted throughout the right hemicolon. Normal appendix. Ventral midline laparotomy change. In the supraumbilical region, there is fat stranding and hazy dens ity in the subcutaneous adipose. No mesenteric or retroperitoneal lymphadenopathy. Moderate to severe circumference of bladder wall thickening may in part relate to nondistention. [place] l artifact from the patient's left hip arthroplasty limits visualization of pelvic structures. No abn ormal fluid collection seen in the pelvis or pelvic lymphadenopathy. Bones: Mild degenerative change right hip. This seems to be some serpiginous sclerosis along the weig htbearing aspect of the right femoral head measuring 2.7 cm suggesting focus of AVN. Moderate to adva nced degenerative disc disease L5-S1. Facet arthropathy lower lumbar spine. IMPRESSION: 1. INTERVAL SMALL BOWEL RESECTION AND REANASTOMOSIS ALONG THE ANTERIOR RIGHT MID ABDOMEN. THERE ARE P ROMINENT FLUID FILLED LOOPS OF SMALL BOWEL AND LIQUID STOOL IN THE RIGHT SIDE OF THE COLON. CORRELATE FOR ENTERITIS. NO EVIDENCE FOR BOWEL OBSTRUCTION. 2. VENTRAL MIDLINE LAPAROTOMY SCAR. THERE IS FAT STRANDING AND HAZY DENSITY ALONG THE SUPRAUMBILICAL MIDLINE ALONG THE PATIENT'S SCAR. CORRELATE TO TIME SINCE SURGERY. IF RECENT, THIS COULD REFLECT N ORMAL POSTOPERATIVE INFLAMMATION. CORRELATE TO EXCLUDE CELLULITIS. 3. CIRCUMFERENTIAL BLADDER WALL THICKENING. CORRELATE TO EXCLUDE CYSTITIS. 4. 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
[2019-11-05] MEDS ORDERED: ACET/COD 300 MG/30 MG STARTER PACK 6 TAB BTL PO STA (12:46)
== END 2019-11-05 12:53 | disposition home or self-care (01) ==
LOC: EC 10:05
DX: L03.311 Cellulitis of abdominal wall (principal); E78.5 Hyperlipidemia, unspecified; I10 Essential (primary) hypertension; Z86.010 Personal history of colon polyps; Z98.890 Other specified postprocedural states; Z95.818 Presence of other cardiac implants and grafts; Z87.19 Personal history of other diseases of the digestive system; Z79.899 Other long term (current) drug therapy; Z91.010 Allergy to peanuts; Z91.013 Allergy to seafood
CPT/HCPCS: 36415; 80053; 83605; 83690; 85025; 85610; 85730; 81003; 74177; 99284; 96374; 96375; 96361 ×2; J2405; J1170; Q9967

== ENCOUNTER 2019-11-13 09:03 | Day surgery (SDC) | payer OTHER ==
[2019-11-11 13:00] VITALS: BMI 30.4
[~2019-11-13 09:03] MED LIST changes: +LIDOCAINE 1% (10MG/ML) FOR IV START INTRADERMA PRN
--- NOTE | 2019-11-13 09:34 | P.GSHP ---
History of Present Illness H&P Date: 11/13/19 CHIEF COMPLAINT: GERD and colon screen HISTORY OF PRESENT ILLNESS: The patient is a 59-year-old male who presents with gastroesophageal reflux disease and need for colon screen. Upper and lower endoscopy were offered for further evaluation and management. PAST MEDICAL HISTORY: Please see list. PAST SURGICAL HISTORY: Please see list. MEDICATIONS: Please see list. ALLERGIES: Please see list. SOCIAL HISTORY: No illicit drug use FAMILY HISTORY: No reports of Crohn disease or ulcerative colitis. REVIEW OF ORGAN SYSTEMS: CONSTITUTIONAL: No reports of fevers or chills. GI: Denies any blood in stools or constipation. PHYSICAL EXAM: VITAL SIGNS: Stable GENERAL: Well-developed pleasant in no acute distress. HEENT: No scleral icterus. Extraocular movements grossly intact. Moist buccal mucosa. NECK: Supple without lymphadenopathy. CHEST: Unlabored respirations. Equal bilateral excursions. CARDIOVASCULAR: Regular rate and rhythm. Distal 2+ pulses. ABDOMEN: Soft, nondistended. MUSCULOSKELETAL: No clubbing, cyanosis, or edema. ASSESSMENT: 1. Gastroesophageal reflux disease 2. Colon screen. PLAN: 1. Recommend proceeding with an upper and lower endoscopy Past Medical History Past Medical History: Hyperlipidemia, Hypertension Additional Past Medical History / Comment(s): past hx colon polyps, back pain, history of hyperparathyroidism, hypertension, degenerative arthritis, hyperlipidemia, history of peptic ulcer disease from 1990 History of Any Multi-Drug Resistant Organisms: None Reported Past Surgical History: Heart Catheterization Additional Past Surgical History / Comment(s): surg. for perforated ulcer Past Anesthesia/Blood Transfusion Reactions: No Reported Reaction Additional Past Alcohol Use History / Comment(s): started smoking at age 21- <1ppd Additional Drug Use History / Comment(s): uses marijuana weekly - Past Family History Mother Family Medical History: No Reported History Brother(s) Family Medical History: Cancer Additional Family Medical History / Comment(s): unknown type of cancer Medications and Allergies Home Medications Medication Instructions Recorded Confirmed Type Metoprolol Tartrate [Lopressor] 50 mg PO BID #60 tab 10/10/19 11/11/19 Rx Cholecalciferol [Vitamin D3 (25 1,000 unit PO DAILY 11/05/19 11/11/19 History Mcg = 1000 Iu)] Simvastatin [Zocor] 40 mg PO HS 11/05/19 11/11/19 History amLODIPine [Norvasc] 5 mg PO DAILY 11/05/19 11/11/19 History Multivitamins, Thera [Multivitamin 1 tab PO DAILY 11/11/19 11/11/19 History (formulary)] QUEtiapine FUMARATE [SEROquel] 300 mg PO HS 11/11/19 11/11/19 History Allergies Allergy/AdvReac Type Severity Reaction Status Date / Time peanut Allergy Rash/Hives Verified 11/11/19 12:35 shellfish derived Allergy Rash/Hives Verified 11/11/19 12:35
[2019-11-13 10:12] VITALS: TEMP 97
[2019-11-13] MEDS ORDERED: LIDOCAINE 1% INJ 10MG/ML (20 ML MDV) ONE (10:38)
[2019-11-13] MEDS ORDERED: PROPOFOL 10 MG/ML 20 ML VIAL IV ONE (10:38)
--- NOTE | 2019-11-13 10:50 | P.HPADDEND ---
H&P Addendum H&P Addendum Date: 11/13/19 Patient reports previous right upper quadrant abdominal pain has improved since being on a low-fat diet. Separately, he complains of his suture exposure along the upper midline of the abdomen. Excess suture resected at bedside. Risk of hernia described.
--- NOTE | 2019-11-13 10:57 | P.PCN ---
Date of Procedure: 11/13/19 Description of Procedure: PREOPERATIVE DIAGNOSIS: History of upper gastrointestinal bleeding. History of bleeding gastric ulcers. History of acute blood loss anemia POSTOPERATIVE DIAGNOSIS: Chronic gastritis with recent bleeding Duodenitis OPERATION: Esophagogastroduodenoscopy with biopsies along antrum. SURGEON: Myrna Clinton MD ANESTHESIA: MAC. INDICATIONS: The patient is a 59-year-old male who presents with recent history of acute blood loss anemia due to acute gastritis with bleeding. He also has history of bleeding gastric ulcers. Benefits and risks of the procedure were described. Informed consent was obtained. DESCRIPTION: The patient was brought into the endoscopy suite and laid in the left lateral decubitus position. An Olympus gastroscope was passed along the posterior oropharynx down to the distal esophagus where the squamocolumnar junction was encountered at 41 cm from the incisors. The stomach was entered and no bile reflux was found. Additional findings are listed below. Biopsies with cold forceps were obtained of the antrum. The first through third portion of the duodenum was examined and remarkable for mild to moderate duodenitis. Retroflexion of the scope confirmed Hill grade 2 lower esophageal valve. The squamocolumnar junction demonstrated LA grade A erosive esophagitis. The stomach was desufflated. The patient tolerated the procedure well. FINDINGS: Squamocolumnar junction 41 cm from the incisors. Diaphragmatic hiatus at 41 cm. Hill grade 2 lower esophageal valve. LA grade A erosive esophagitis. Active duodenitis. Chronic gastritis with recent bleed RECOMMENDATIONS: Upper endoscopy as needed. Recommend continue anti-acid treatment
[2019-11-13] MEDS ORDERED: IV FLUID CONTINUATION 500 ML IV ONE (11:14)
--- NOTE | 2019-11-13 11:18 | P.PCN ---
Date of Procedure: 11/13/19 Description of Procedure: PREOPERATIVE DIAGNOSIS: Personal history of colon polyps Colonoscopy screening POSTOPERATIVE DIAGNOSIS: Ascending colon adenoma Sigmoid colon adenoma Ascending colon diverticulosis OPERATION: Colonoscopy to the ileocecal valve and appendiceal orifice, cecum Colonoscopy with cold forceps biopsies SURGEON: Myrna Clinton MD. ANESTHESIA: MAC. INDICATIONS: The patient is an 59-year-old male who presents personal history of colon polyps. Last colonoscopy 2 years. Benefits and risks were described and informed consent was obtained. DESCRIPTION OF PROCEDURE: The patient had undergone Suprep. He had been brought into the operating room and laid in the left lateral decubitus position. After adequate intravenous sedation, the rectum was examined with 2% lidocaine jelly. The prostate was unremarkable. No external hemorrhoids were encountered. The rectal tone was within normal limits. No lesions were palpated in the rectal vault. An Olympus colonoscope was advanced until the cecum, ileocecal valve and appendiceal orifice were clearly viewed. The prep was excellent. At the ascending colon, multiple diverticula were identified only at this location. Multiple colonic polyps were found and removed with cold forceps.. No evidence of focal colitis was found. Retroflexion of the scope demonstrated no internal hemorrhoids. The colon was desufflated. The patient had tolerated the procedure well. Withdrawal time was over 6 minutes. FINDINGS: Aronchick preparation quality scale 1 (1-5) No internal hemorrhoids No external hemorrhoids No arteriovenous malformations. Ascending colon diverticulosis Hyperplastic polyps, sigmoid colon Removal of 4 polyps: - Cold forceps biopsy at 20 cm from the anal verge x 3, 3 to 5 mm polyps, sigmoid colon - Cold forceps biopsy at , ascending colon 4 mm polyp. No focal colitis. RECOMMENDATIONS: Given severity of tubular adenomas, recommend repeat colonoscopy 3 years, 2022. Plan - Discharge Summary Discharge Rx Participant: No New Discharge Prescriptions: Continue Metoprolol Tartrate [Lopressor] 50 mg PO BID #60 tab amLODIPine [Norvasc] 5 mg PO DAILY Cholecalciferol [Vitamin D3 (25 Mcg = 1000 Iu)] 1,000 unit PO DAILY Simvastatin [Zocor] 40 mg PO HS Multivitamins, Thera [Multivitamin (formulary)] 1 tab PO DAILY QUEtiapine FUMARATE [SEROquel] 300 mg PO HS Discharge Medication List Metoprolol Tartrate [Lopressor] 50 mg PO BID #60 tab 10/10/19 [Rx] Cholecalciferol [Vitamin D3 (25 Mcg = 1000 Iu)] 1,000 unit PO DAILY 11/05/19 [History] Simvastatin [Zocor] 40 mg PO HS 11/05/19 [History] amLODIPine [Norvasc] 5 mg PO DAILY 11/05/19 [History] Multivitamins, Thera [Multivitamin (formulary)] 1 tab PO DAILY 11/11/19 [History] QUEtiapine FUMARATE [SEROquel] 300 mg PO HS 11/11/19 [History] Follow up Appointment(s)/Referral(s): Myrna Clinton MD [STAFF PHYSICIAN] - 11/28/19 Patient Instructions/Handouts: Colorectal Polyps (DC), Diverticulosis Diet (G EN), Diverticulosis (DC) Activity/Diet/Wound Care/Special Instructions: Repeat colonoscopy in 3 years, 2022 Discharge Disposition: HOME SELF-CARE
[2019-11-13 11:28] VITALS: RESP 20
[2019-11-13 11:48] VITALS: BP 136/80; PULSE 87
== END 2019-11-13 12:15 | disposition home or self-care (01) ==
LOC: ORWHC2ENDO 09:03
PROVIDERS: ATTEND Surgery Plastic and Reconstructive Surgery
DX: Z12.11 Encounter for screening for malignant neoplasm of colon (principal); K63.5 Polyp of colon; K57.30 Diverticulosis of large intestine without perforation or abscess without bleeding; K29.50 Unspecified chronic gastritis without bleeding; K29.80 Duodenitis without bleeding; K21.0 Gastro-esophageal reflux disease with esophagitis; I10 Essential (primary) hypertension; F17.210 Nicotine dependence, cigarettes, uncomplicated; E78.5 Hyperlipidemia, unspecified; E21.3 Hyperparathyroidism, unspecified; M19.90 Unspecified osteoarthritis, unspecified site; Z79.899 Other long term (current) drug therapy; Z96.641 Presence of right artificial hip joint; Z98.890 Other specified postprocedural states; Z87.11 Personal history of peptic ulcer disease; Z80.9 Family history of malignant neoplasm, unspecified; Z91.010 Allergy to peanuts; Z91.013 Allergy to seafood
CPT/HCPCS: 88305; 45380; 43239; J2001; J2704

== ENCOUNTER 2019-12-21 21:54 | Emergency (ER) | payer OTHER ==
[2019-12-21 23:03] LABS: Basophils # (A) 0.1 k/uL (0-0.2); Basophils % (A) 1 %; Eosinophils # (A) 0.2 k/uL (0-0.7); Eosinophils % (A) 2 %; HCT 43.2 % (39.0-53.0); HGB 13.9 gm/dL (13.0-17.5); Lymphocytes # (A) 1.7 k/uL (1.0-4.8); Lymphocytes % (A) 20 %; MCH 27.1 pg (25.0-35.0); MCV 84.5 fL (80.0-100.0); Mean Platelet Volume 8.4; Monocytes # (A) 0.5 k/uL (0-1.0); Monocytes % (A) 6 %; Neutrophils % (A) 70 %; Platelet Count 305 k/uL (150-450); RBC 5.12 m/uL (4.30-5.90); RDW 14.7 % (11.5-15.5); WBC 8.7 k/uL (3.8-10.6)
[2019-12-21 23:13] LABS: Albumin 4.4 g/dL (3.5-5.0); Calcium 10.9 mg/dL (8.4-10.2); Potassium 4.2 mmol/L (3.5-5.1); Total Bilirubin 0.4 mg/dL (0.2-1.3); Total Protein 7.3 g/dL (6.3-8.2)
--- NOTE | 2019-12-21 23:53 | ED ---
Abdominal Pain HPI - General Chief Complaint: Abdominal Pain Stated Complaint: Abd Pain - Post Op Complications Time Seen by Provider: 12/21/19 22:23 Source: patient Mode of arrival: ambulatory Limitations: no limitations - History of Present Illness Initial Comments: Patient is 59-year-old male presenting to the emergency department with chief complaint postoperative, location. Patient reports in September, Dr. Byrd performed a gastric procedure. Patient states his recovery has been uncomplicated so far although today he was cutting trees and felt the incision site become loose. Patient reports there is a soft area and incision site he is concerned for hernia. Patient reports there is minimal pain or discomfort. Patient states that incident occurred about 3-4 hours ago in the hernia appears to be gradually increasing size. States there is no difficulties with bowel movements. No nausea vomiting diarrhea. - Related Data Home Medications Medication Instructions Recorded Confirmed Simvastatin [Zocor] 40 mg PO HS 11/05/19 12/21/19 amLODIPine [Norvasc] 5 mg PO DAILY 11/05/19 12/21/19 Multivitamins, Thera [Multivitamin 1 tab PO DAILY 11/11/19 12/21/19 (formulary)] QUEtiapine FUMARATE [SEROquel] 300 mg PO HS 11/11/19 12/21/19 Cholecalciferol (Vitamin D3) 125 mcg PO DAILY 12/21/19 12/21/19 [Vitamin D3] Diclofenac Sodium [Voltaren] 75 mg PO BID 12/21/19 12/21/19 Docusate [Colace] 100 mg PO DAILY PRN 12/21/19 12/21/19 Previous Rx's Medication Instructions Recorded Metoprolol Tartrate [Lopressor] 50 mg PO BID #60 tab 10/10/19 Allergies Allergy/AdvReac Type Severity Reaction Status Date / Time peanut Allergy Anaphylaxis Verified 12/21/19 22:53 shellfish derived Allergy Anaphylaxis Verified 12/21/19 22:53 Review of Systems ROS Statement: Those systems with pertinent positive or pertinent negative responses have been documented in the HPI. ROS Other: All systems not noted in ROS Statement are negative. Past Medical History Past Medical History: GERD/Reflux, Hyperlipidemia, Hypertension Additional Past Medical History / Comment(s): past hx colon polyps, back pain, history of hyperparathyroidism, hypertension, degenerative arthritis, hyperlipidemia, history of peptic ulcer disease from 1990 History of Any Multi-Drug Resistant Organisms: None Reported Past Surgical History: Bowel Resection, Heart Catheterization, Orthopedic Surgery Additional Past Surgical History / Comment(s): surg. for perforated ulcer Past Anesthesia/Blood Transfusion Reactions: No Reported Reaction Past Psychological History: Anxiety, Depression Smoking Status: Former smoker Past Alcohol Use History: Occasional Past Drug Use History: Marijuana - Past Family History Mother Family Medical History: No Reported History Brother(s) Family Medical History: Cancer General Exam Limitations: no limitations General appearance: alert, in no apparent distress, obese Head exam: Present: atraumatic, normocephalic, normal inspection Eye exam: Present: normal appearance, PERRL, EOMI Pupils: Present: normal accommodation ENT exam: Present: normal exam, normal oropharynx, mucous membranes moist Neck exam: Present: normal inspection, full ROM. Absent: tenderness Respiratory exam: Present: normal lung sounds bilaterally. Absent: respiratory distress, wheezes Cardiovascular Exam: Present: regular rate, normal rhythm, normal heart sounds GI/Abdominal exam: Present: soft, hernia (small incisional hernia measuring approximately 1.5 cm in the middle of the abdomen.). Absent: distended, tenderness, guarding Extremities exam: Present: normal inspection, full ROM. Absent: tenderness Back exam: Present: normal inspection, full ROM. Absent: tenderness Neurological exam: Present: alert, oriented X3 Psychiatric exam: Present: normal affect, normal mood Skin exam: Present: warm, dry, intact, normal color Course Vital Signs 12/21/19 12/21/19 12/22/19 21:57 23:47 01:21 Temperature 98.0 F 98.2 F 98 F Pulse Rate 94 72 70 Respiratory 16 20 18 Rate Blood Pressure 165/104 116/78 139/89 O2 Sat by Pulse 99 98 98 Oximetry Medical Decision Making - Medical Decision Making Patient is a 59-year-old male presenting to emergency Department with a chief complaint of postoperative competitions. Exam there is a 1.5 cm ventral hernia at the incision site along the sagittal plane of the mid abdomen. There is minimal pain or tenderness to palpation. Patient is having bowel movement was without difficulties. CT of the pelvis reveals a ventral hernia with fat stranding. No involvement of the intestines. Patient is to follow-up with Dr. Byrd in outpatient setting. Strict return parameters were thoroughly discussed with patient is a worsening agreeable. Case discussed with physician. - Lab Data Result diagrams: 12/21/19 22:36 12/21/19 22:36 Lab Results 12/21/19 12/21/19 12/21/19 Range/Units 22:36 22:36 22:39 WBC 8.7 (3.8-10.6) k/uL RBC 5.12 (4.30-5.90) m/uL Hgb 13.9 (13.0-17.5) gm/dL Hct 43.2 (39.0-53.0) % MCV 84.5 (80.0-100.0) fL MCH 27.1 (25.0-35.0) pg MCHC 32.0 (31.0-37.0) g/dL RDW 14.7 (11.5-15.5) % Plt Count 305 (150-450) k/uL Neutrophils % 70 % Lymphocytes % 20 % Monocytes % 6 % Eosinophils % 2 % Basophils % 1 % Neutrophils # 6.0 (1.3-7.7) k/uL Lymphocytes # 1.7 (1.0-4.8) k/uL Monocytes # 0.5 (0-1.0) k/uL Eosinophils # 0.2 (0-0.7) k/uL Basophils # 0.1 (0-0.2) k/uL Sodium 139 (137-145) mmol/L Potassium 4.2 (3.5-5.1) mmol/L Chloride 106 (98-107) mmol/L Carbon Dioxide 25 (22-30) mmol/L Anion Gap 8 mmol/L BUN 20 (9-20) mg/dL Creatinine 1.07 (0.66-1.25) mg/dL Est GFR (CKD-EPI)AfAm 87 (>60 ml/min/1.73 sqM) Est GFR (CKD-EPI)NonAf 75 (>60 ml/min/1.73 sqM) Glucose 114 H (74-99) mg/dL Plasma Lactic Acid Sy 1.4 (0.7-2.0) mmol/L Calcium 10.9 H (8.4-10.2) mg/dL Total Bilirubin 0.4 (0.2-1.3) mg/dL AST 23 (17-59) U/L ALT 21 (4-49) U/L Alkaline Phosphatase 101 (38-126) U/L Total Protein 7.3 (6.3-8.2) g/dL Albumin 4.4 (3.5-5.0) g/dL Disposition Clinical Impression: Ventral incisional hernia without gangrene Disposition: HOME SELF-CARE Condition: Stable Instructions (If sedation given, give patient instructions): Ventral Hernia (ED) Additional Instructions: Follow-up with Dr. Park. Return to emergency department if symptoms worsen. Is patient prescribed a controlled substance at d/c from ED?: No Referrals: Scott Morin MD [Primary Care Provider] - 1-2 days Time of Disposition: 01:15
--- NOTE | 2019-12-22 00:57 | CT ---
EXAMINATION TYPE: CT abdomen pelvis w con DATE OF EXAM: 12/22/2019 COMPARISON: 11/05/2019 HISTORY: epigastric pain. incisional hernia CT DLP: 1433.6 mGycm Automated exposure control for dose reduction was used. CONTRAST: Performed with IV Contrast, patient injected with 100 mL of Isovue 300. Multiple axial sections were obtained from the diaphragm to the floor the pelvis with IV contrast. The lung bases are clear. There is no pleural effusion. Heart size is normal. There is no pericardial effusion. The liver spleen stomach pancreas gallbladder appear normal. Bile ducts are not dilated. There is no adrenal mass. Kidneys show normal size and contour. There is satisfactory contrast opacification. The re is no hydronephrosis. Delayed images show normal renal excretion. There is some increased density in the midline anterior abdominal wall consistent with scar tissue and previous surgery. There is no retroperitoneal adenopathy. Ureters are not dilated. Bladder distends smoothly. There is left hip pro sthesis. There is no free fluid in the pelvis. Appendix is posterior and appears normal. There is no mesenteric edema. There is no ascites or free air. There is no bowel obstruction. Lumbar vertebra have normal alignment. There is no compression fracture. There is some osteosclerosis in the L4 and T11 vertebral bodies. There is osteosclerosis in the right femoral head consistent wit h chronic avascular necrosis. IMPRESSION: No acute abnormality within the abdomen pelvis. Scar tissue and thickening on the anterior abdominal wall midline consistent with previous surgery and unchanged. Osteosclerosis in T11 and L4 vertebra unchanged. This is also present on old CT scan of 2010 most lik saul related to Paget's disease. Midline small umbilical or periumbilical hernia containing fat and scar tissue unchanged.
[2019-12-22 01:22] VITALS: BP 139/89; PULSE 70; RESP 18; TEMP 98
== END 2019-12-22 01:22 | disposition home or self-care (01) ==
LOC: EC 21:54
DX: K43.2 Incisional hernia without obstruction or gangrene (principal); E78.5 Hyperlipidemia, unspecified; F41.9 Anxiety disorder, unspecified; F32.9 Major depressive disorder, single episode, unspecified; I10 Essential (primary) hypertension; M19.90 Unspecified osteoarthritis, unspecified site; Z79.899 Other long term (current) drug therapy; Z91.010 Allergy to peanuts; Z91.013 Allergy to seafood; Z98.890 Other specified postprocedural states; Z95.5 Presence of coronary angioplasty implant and graft; X50.0XXA Overexertion from strenuous movement or load, initial encounter; Y93.H2 Activity, gardening and landscaping
CPT/HCPCS: 36415; 74177; 80053; 83605; 85025; 99284

== ENCOUNTER → 2020-02-11 | Outpatient (CLI) | payer OTHER ==
[2020-02-11 21:58] LABS: Hemoglobin A1C 6.1 % (4.0-6.0)
== END | disposition home or self-care (01) ==
LOC: LABWHC1 13:00
PROVIDERS: ATTEND Internal Medicine
DX: E11.65 Type 2 diabetes mellitus with hyperglycemia (principal); T81.89XA Other complications of procedures, not elsewhere classified, initial encounter
CPT/HCPCS: 36415; 82947; 83036

== ENCOUNTER → 2020-03-24 | Outpatient (CLI) | payer OTHER ==
[2020-03-24 12:17] LABS: Ionized Calcium 5.9 mg/dL (4.5-5.3)
[2020-03-24 12:20] LABS: African American GFR (CKD) 73 (>60 ml/min/1.73 sqM); Alkaline Phosphatase 81 U/L (38-126); Anion Gap 3 mmol/L; Blood Urea Nitrogen 19 mg/dL (9-20); Calcium 10.2 mg/dL (8.4-10.2); Carbon Dioxide 29 mmol/L (22-30); Chloride 107 mmol/L (98-107); Glucose 101 mg/dL (74-99); LDH 358 U/L (313-618); Magnesium 2.1 mg/dL (1.6-2.3); Non-African American GFR(CKD) 63 (>60 ml/min/1.73 sqM); Phosphorus 3.4 mg/dL (2.5-4.5); Potassium 4.6 mmol/L (3.5-5.1); Sodium 139 mmol/L (137-145); Uric Acid 8.3 mg/dL (3.5-8.5)
--- NOTE | 2020-03-24 15:23 | XR ---
EXAMINATION TYPE: XR thoracic spine 3 views, XR lumbosacral spine 5 views DATE OF EXAM: 03/24/2020 COMPARISON: 05/20/2019 HISTORY: 59-year-old male hypomagnesemia. Pain. E83.52, I10 ,E21.3, E55.9 FINDINGS: Thoracic spine: 12 rib-bearing thoracic vertebral bodies. Moderate endplate spondylosis visualized mid to lower cervi sita spine. Mild degenerative disc disease with corresponding endplate spondylosis within the mid to l ower thoracic spine. Vertebral body heights are preserved and alignment is maintained. There is relat ively similar to 05/20/2019. Lumbar spine: 5 lumbar type vertebral bodies. Hypertrophic facet arthropathy lower lumbar spine. Trace grade 1 ante rolisthesis L4-L5. Moderate to advanced degenerative disc disease L5-S1 with vacuum phenomenon, endpl ate sclerosis, spondylosis, and disc space narrowing. Vacuum phenomenon appears to have progressed fr om earlier this year. Vertebral body heights are preserved. IMPRESSION: 1. Thoracic spine: Mild to moderate endplate spondylosis mid to lower thoracic spine. No vertebral co mpression collapse or malalignment. 2. Lumbar spine: Moderate to advanced degenerative disc disease L5-S1. Vacuum phenomenon has progress ed as compared to earlier this year. Additional facet arthropathy lower lumbar spine with trace grade 1 anterolisthesis at L4-L5 is similar.
== END | disposition home or self-care (01) ==
LOC: LABWHC1 09:55
PROVIDERS: ATTEND Internal Medicine
DX: M51.37 Other intervertebral disc degeneration, lumbosacral region (principal); M47.814 Spondylosis without myelopathy or radiculopathy, thoracic region; M47.816 Spondylosis without myelopathy or radiculopathy, lumbar region; E83.52 Hypercalcemia; I10 Essential (primary) hypertension
CPT/HCPCS: 36415; 72070; 72110; 80048; 82306; 82330; 83615; 83735; 83970; 84075; 84100; 84550; 85652

== ENCOUNTER → 2020-05-25 | Outpatient (CLI) | payer OTHER ==
--- NOTE | 2020-05-25 12:16 | XR ---
EXAMINATION TYPE: XR lumbosacral spine 5 views DATE OF EXAM: 05/25/2020 Comparison: 03/24/2020 Clinical History: 60-year-old male with numbness and pain within the right hip to the leg. FINDINGS: Hypertrophic facet arthropathy lower lumbar spine. Moderate degenerative disc disease L5-S1 with disc height loss, vacuum phenomenon, endplate spondylosis. Vertebral body heights are preserved and align ment is maintained. Additional mild degenerative disc disease lower thoracic spine trace grade 1 ante rolisthesis L4-L5. IMPRESSION: Similar appearance with hypertrophic facet arthropathy lower lumbar spine and trace grade 1 anterolis thesis at L4-L5. Continued moderate degenerative disc disease L5-S1. No vertebral compression collaps e.
--- NOTE | 2020-05-25 12:19 | XR ---
EXAMINATION TYPE: XR sacroiliac joint comp BILAT common 3 views DATE OF EXAM: 05/25/2020 COMPARISON: NONE HISTORY: 60-year-old male TECHNIQUE: Total 3 views FINDINGS: Mild subarticular sclerosis sclerosis at the right SI joint with possible subtle subarticular erosion s on the right. The left SI joint appears intact. Minimal inferior spurring may be present. Small del ineation to the arcuate lines of the sacrum. Degenerative changes lower lumbar spine. IMPRESSION: Asymmetric degenerative change of the right SI joint. Mild subarticular erosion can be seen in the se tting of both sacroiliitis and osteoarthrosis.
== END | disposition home or self-care (01) ==
LOC: LABWHC1 09:52
PROVIDERS: ATTEND Internal Medicine
DX: M47.816 Spondylosis without myelopathy or radiculopathy, lumbar region (principal); M51.37 Other intervertebral disc degeneration, lumbosacral region; M46.1 Sacroiliitis, not elsewhere classified; M25.851 Other specified joint disorders, right hip; E53.8 Deficiency of other specified B group vitamins; M19.90 Unspecified osteoarthritis, unspecified site
CPT/HCPCS: 36415; 72110; 72202; 82607

== ENCOUNTER 2020-12-22 07:10 | Emergency (ER) | payer OTHER ==
[2020-12-22 07:17] VITALS: RESP 18; TEMP 97.8
[2020-12-22] MEDS ORDERED: SODIUM CHLORIDE 0.9% 1,000 ML IV ONE (07:36)
--- NOTE | 2020-12-22 07:40 | ED ---
General Adult HPI - General Chief complaint: Syncope Stated complaint: Syncope Time Seen by Provider: 12/22/20 07:15 Source: patient, RN notes reviewed, old records reviewed Mode of arrival: wheelchair Limitations: no limitations - History of Present Illness Initial comments: This is a 60-year-old male with past medical history significant for high blood pressure and smoking history which she continues to do. Patient states this morning he got up extra early to bring her friend at the hospital and he normally eats breakfast which she did not. Patient states he normally has something to drink but not coughing this morning he did have coffee. Patient states she was sitting and he decided to get up when he got up he felt very lightheaded and then he slowly went to the ground and he states the lightheadedness resolved almost immediately. Patient states he did not ever lose consciousness. Patient denies any chest pain or palpitations. Patient denies any difficulty breathing shortness of breath. Patient states she's had no recent episodes of vomiting or diarrhea. Patient denies any fever chills or cough per patient states he's had both COVID shots. Patient denies any drug use or alcohol use. Patient states currently he feels at his baseline. - Related Data Home Medications Medication Instructions Recorded Confirmed Simvastatin [Zocor] 40 mg PO HS 11/05/19 12/22/20 QUEtiapine FUMARATE [SEROquel] 300 mg PO HS 11/11/19 12/22/20 Cholecalciferol (Vitamin D3) 125 mcg PO HS 12/21/19 12/22/20 [Vitamin D3] Diclofenac Sodium [Voltaren] 75 mg PO BID 12/21/19 12/22/20 amLODIPine [Norvasc] 10 mg PO HS 12/22/20 12/22/20 Previous Rx's Medication Instructions Recorded Metoprolol Tartrate [Lopressor] 50 mg PO BID #60 tab 10/10/19 Allergies Allergy/AdvReac Type Severity Reaction Status Date / Time peanut Allergy Anaphylaxis Verified 12/22/20 08:42 shellfish derived Allergy Anaphylaxis Verified 12/22/20 08:42 Review of Systems ROS Statement: Those systems with pertinent positive or pertinent negative responses have been documented in the HPI. ROS Other: All systems not noted in ROS Statement are negative. Past Medical History Past Medical History: GERD/Reflux, Hyperlipidemia, Hypertension Additional Past Medical History / Comment(s): past hx colon polyps, back pain, history of hyperparathyroidism, hypertension, degenerative arthritis, hyperlipidemia, history of peptic ulcer disease from 1990 History of Any Multi-Drug Resistant Organisms: None Reported Past Surgical History: Bowel Resection, Heart Catheterization, Orthopedic Surgery Additional Past Surgical History / Comment(s): surg. for perforated ulcer, hip replac Past Anesthesia/Blood Transfusion Reactions: No Reported Reaction Past Psychological History: Anxiety, Depression Smoking Status: Current every day smoker Past Alcohol Use History: Occasional Past Drug Use History: Marijuana - Past Family History Mother Family Medical History: No Reported History Brother(s) Family Medical History: Cancer General Exam - General Exam Comments Initial Comments: GENERAL: Patient is well-developed and well-nourished. Patient is nontoxic and well- hydrated and is in no acute distress. ENT: Neck is soft and supple. No significant lymphadenopathy is noted. Oropharynx is clear. Moist mucous membranes. Neck has full range of motion without eliciting any pain. EYES: The sclera were anicteric and conjunctiva were pink and moist. Extraocular movements were intact and pupils were equal round and reactive to light. Eyelids were unremarkable. PULMONARY: Unlabored respirations. Good breath sounds bilaterally. No audible rales rhonchi or wheezing was noted. CARDIOVASCULAR: There is a regular rate and rhythm without any murmurs gallops or rubs. ABDOMEN: Soft and nontender with normal bowel sounds. SKIN: Skin is clear with no lesions or rashes and otherwise unremarkable. NEUROLOGIC: Patient is alert and oriented x3. Cranial nerves II through XII are grossly intact. Motor and sensory are also intact. Normal speech, volume and content. Symmetrical smile. MUSCULOSKELETAL: Normal extremities with adequate strength and full range of motion. No lower extremity swelling or edema. No calf tenderness. LYMPHATICS: No significant lymphadenopathy is noted PSYCHIATRIC: Normal psychiatric evaluation. Limitations: no limitations Course Vital Signs 12/22/20 12/22/20 07:14 07:36 Temperature 97.8 F Pulse Rate 90 Pulse Rate [ 67 Left Supine] Pulse Rate [ 82 Sitting] Respiratory 18 Rate Blood Pressure 119/82 Blood Pressure 131/87 [Sitting] Blood Pressure 130/81 [Supine] O2 Sat by Pulse 99 Oximetry Medical Decision Making - Medical Decision Making EKG shows a sinus rhythm at 85 bpm KS interval 244 QRS is 82 QT interval 370 QTC is 440. Patient's EKG also has an occasional PAC. There is no ST segment elevation or depression. Patient had orthostatics done in the emergency department when he went to stand up he felt lightheaded so we set him down. Patient received a liter and half of fluid. I went back and reevaluated the patient he stated he was feeling fine he was able to ambulate without problem patient will follow-up with his primary medical care doctor. - Lab Data Result diagrams: 12/22/20 08:03 12/22/20 08:03 Lab Results 12/22/20 12/22/20 12/22/20 Range/Units 08:03 08:03 08:03 WBC 6.1 (3.8-10.6) k/uL RBC 5.00 (4.30-5.90) m/uL Hgb 14.9 (13.0-17.5) gm/dL Hct 45.4 (39.0-53.0) % MCV 90.9 (80.0-100.0) fL MCH 29.8 (25.0-35.0) pg MCHC 32.8 (31.0-37.0) g/dL RDW 13.4 (11.5-15.5) % Plt Count 241 (150-450) k/uL MPV 8.3 Neutrophils % 54 % Lymphocytes % 32 % Monocytes % 7 % Eosinophils % 2 % Basophils % 1 % Neutrophils # 3.3 (1.3-7.7) k/uL Lymphocytes # 1.9 (1.0-4.8) k/uL Monocytes # 0.4 (0-1.0) k/uL Eosinophils # 0.1 (0-0.7) k/uL Basophils # 0.0 (0-0.2) k/uL Sodium 140 (137-145) mmol/L Potassium 4.2 (3.5-5.1) mmol/L Chloride 108 H (98-107) mmol/L Carbon Dioxide 22 (22-30) mmol/L Anion Gap 10 mmol/L BUN 16 (9-20) mg/dL Creatinine 1.08 (0.66-1.25) mg/dL Est GFR (CKD-EPI)AfAm 85 (>60 ml/min/1.73 sqM) Est GFR (CKD-EPI)NonAf 73 (>60 ml/min/1.73 sqM) Glucose 105 H (74-99) mg/dL Calcium 10.8 H (8.4-10.2) mg/dL Magnesium 2.2 (1.6-2.3) mg/dL Total Bilirubin 0.3 (0.2-1.3) mg/dL AST 24 (17-59) U/L ALT 22 (4-49) U/L Alkaline Phosphatase 86 (38-126) U/L Troponin I <0.012 (0.000-0.034) ng/mL Total Protein 6.9 (6.3-8.2) g/dL Albumin 4.4 (3.5-5.0) g/dL Disposition Clinical Impression: Orthostatic lightheadedness Disposition: HOME SELF-CARE Condition: Good Instructions (If sedation given, give patient instructions): Hypotension (ED) Is patient prescribed a controlled substance at d/c from ED?: No Referrals: Scott Morin MD [Primary Care Provider] - 1-2 days Time of Disposition: 09:22
[2020-12-22 08:10] LABS: Basophils % (A) 1 %; Eosinophils # (A) 0.1 k/uL (0-0.7); Eosinophils % (A) 2 %; HCT 45.4 % (39.0-53.0); HGB 14.9 gm/dL (13.0-17.5); Lymphocytes # (A) 1.9 k/uL (1.0-4.8); Lymphocytes % (A) 32 %; MCH 29.8 pg (25.0-35.0); MCHC 32.8 g/dL (31.0-37.0); MCV 90.9 fL (80.0-100.0); Mean Platelet Volume 8.3; Monocytes # (A) 0.4 k/uL (0-1.0); Monocytes % (A) 7 %; Neutrophils # (A) 3.3 k/uL (1.3-7.7); Neutrophils % (A) 54 %; Platelet Count 241 k/uL (150-450); RDW 13.4 % (11.5-15.5); WBC 6.1 k/uL (3.8-10.6)
[2020-12-22 08:18] LABS: Albumin 4.4 g/dL (3.5-5.0); Calcium 10.8 mg/dL (8.4-10.2); Magnesium 2.2 mg/dL (1.6-2.3); Potassium 4.2 mmol/L (3.5-5.1); Total Bilirubin 0.3 mg/dL (0.2-1.3); Total Protein 6.9 g/dL (6.3-8.2)
--- NOTE | 2020-12-22 08:22 | XR ---
EXAMINATION TYPE: XR chest 2V DATE OF EXAM: 12/22/2020 COMPARISON: 10/08/2019 TECHNIQUE: PA and lateral views submitted. HISTORY: Syncope FINDINGS: Heart size is normal. No overt failure pleural effusion. No pneumothorax. Arthropathy of the shoulder s. No consolidative pneumonia. IMPRESSION: 1. No definite acute process.
[2020-12-22] MEDS ORDERED: SODIUM CHLORIDE 0.9% 500 ML 500 ML IV STA (08:57)
[2020-12-22 09:38] VITALS: BP 144/90; PULSE 88
== END 2020-12-22 09:41 | disposition home or self-care (01) ==
LOC: EC 07:10
DX: R42 Dizziness and giddiness (principal); R55 Syncope and collapse; I10 Essential (primary) hypertension; E78.5 Hyperlipidemia, unspecified; F17.200 Nicotine dependence, unspecified, uncomplicated; Z91.010 Allergy to peanuts; Z91.013 Allergy to seafood; Z79.899 Other long term (current) drug therapy
CPT/HCPCS: 36415; 71046; 80053; 83735; 84484; 85025; 93005; 96360; 99285

== ENCOUNTER 2022-08-09 09:39 | Emergency (ER) | payer OTHER ==
[2022-08-09] MEDS ORDERED: LIDOCAINE VISCOUS 2% 15 ML CUP MUCOUS MEM ONE (10:15)
--- NOTE | 2022-08-09 10:22 | ED ---
General Adult HPI - General Chief complaint: ENT Stated complaint: Sore throat Time Seen by Provider: 08/09/22 09:43 Source: patient, RN notes reviewed, old records reviewed Mode of arrival: ambulatory Limitations: no limitations - History of Present Illness Initial comments: Patient is a 62-year-old male with past medical history that is unremarkable e xcept for hypertension, hyperlipidemia presents emergency Department complaining of a sore throat for the last 2-3 days. Endorses occasional ear popping as well. Denies any real nasal discharge or facial or sinus pain. Endorses a very similar mild cough. Denies chest pain. Denies nausea or vomiting or diarrhea. No known sick contacts. No other acute complaints at this time. Presents for sore throat. States he did attempt to take an old antibiotic at home yesterday which did seem to help the pain but is continuing to have the pain today. - Related Data Home Medications Medication Instructions Recorded Confirmed Simvastatin [Zocor] 40 mg PO HS 11/05/19 12/22/20 QUEtiapine FUMARATE [SEROquel] 300 mg PO HS 11/11/19 12/22/20 Cholecalciferol (Vitamin D3) 125 mcg PO HS 12/21/19 12/22/20 [Vitamin D3] Diclofenac Sodium [Voltaren] 75 mg PO BID 12/21/19 12/22/20 amLODIPine [Norvasc] 10 mg PO HS 12/22/20 12/22/20 Previous Rx's Medication Instructions Recorded Metoprolol Tartrate [Lopressor] 50 mg PO BID #60 tab 10/10/19 Amoxicillin 875 mg PO Q12HR 10 Days #20 tablet 08/09/22 Allergies Allergy/AdvReac Type Severity Reaction Status Date / Time peanut Allergy Anaphylaxis Verified 08/09/22 09:43 shellfish derived Allergy Anaphylaxis Verified 08/09/22 09:43 Review of Systems ROS Statement: Those systems with pertinent positive or pertinent negative responses have been documented in the HPI. Review of Systems: CONST: Denies fever EYES: Denies blurry vision ENT: Endorses sore throat C/V: Denies Chest pain RESP: Denies shortness of breath GI: Denies abdominal pain : Denies dysuria SKIN: Denies rash. MSK: Denies joint pain. NEURO: Denies headache ROS Other: All systems not noted in ROS Statement are negative. Past Medical History Past Medical History: GERD/Reflux, Hyperlipidemia, Hypertension Additional Past Medical History / Comment(s): past hx colon polyps, back pain, history of hyperparathyroidism, hypertension, degenerative arthritis, hyperlipidemia, history of peptic ulcer disease from 1990 History of Any Multi-Drug Resistant Organisms: None Reported Past Surgical History: Bowel Resection, Heart Catheterization, Orthopedic Surgery Additional Past Surgical History / Comment(s): surg. for perforated ulcer, hip replac Past Anesthesia/Blood Transfusion Reactions: No Reported Reaction Past Psychological History: Anxiety, Depression Smoking Status: Current every day smoker Past Alcohol Use History: Occasional Past Drug Use History: Marijuana - Past Family History Mother Family Medical History: No Reported History Brother(s) Family Medical History: Cancer General Exam - General Exam Comments Initial Comments: General: Appears in no acute distress. HEAD: Normal with no signs of head trauma. EYES: EOMI. ENT: Erythematous posterior oropharynx with exudates. Bilateral tympanic membranes within acceptable limits. No stridor RESPIRATORY: No respiratory distress. Bilateral equal breath sounds. No hypoxia. C/V: Regular rate and rhythm. ABD: Abdomen is nondistended. EXT: No obvious deformity. SKIN: No rashes or lesions observed on exposed skin. NEURO: Alert and oriented. Limitations: no limitations Course Vital Signs 08/09/22 09:41 Temperature 98.1 F Pulse Rate 91 Respiratory 20 Rate Blood Pressure 158/90 O2 Sat by Pulse 99 Oximetry Medical Decision Making - Medical Decision Making Was pt. sent in by a medical professional or institution (Dr. PA, HOME THERAPY TEACHER, urgent care, hospital, or long term...) When possible be specific @ -No Did you speak to anyone other than the patient for history (EMS, parent, family, police, friend...)? What history was obtained from this source @ -No Did you review nursing and triage notes (agree or disagree)? Why? @ -I reviewed and agree with nursing and triage notes Were old charts reviewed (outside hosp., previous admission, EMS record, old EKG, old radiological studies, urgent care reports/EKG's, long term records)? Report findings @ -No old charts were reviewed Differential Diagnosis (chest pain, altered mental status, abdominal pain women, abdominal pain men, vaginal bleeding, weakness, fever, dyspnea, syncope, headache, dizziness, GI bleed, back pain, seizure, CVA, palpatations, mental health, musculoskeletal)? @ -Viral syndrome, strep throat, bronchitis, pneumonia, URI. This list is not all inclusive. EKG interpreted by me (3pts min.). @ -None done X-rays interpreted by me (1pt min.). @ -Chest x-ray reveals no obvious acute cardio pulmonary process. CT interpreted by me (1pt min.). @ -None done U/S interpreted by me (1pt. min.). @ -None done What testing was considered but not performed or refused? (CT, X-rays, U/S, labs)? Why? @ -None What meds were considered but not given or refused? Why? @ -None Did you discuss the management of the patient with other professionals (professionals i.e. , PA, HOME THERAPY TEACHER, lab, RT, psych nurse, drug abuse social worker, cross tie tram loader, teacher, ground defence officer, field case manager)? Give summary @ -No Was smoking cessation discussed for >3mins.? @ -No Was critical care preformed (if so, how long)? @ -No Were there social determinants of health that impacted care today? How? (Homelessness, low income, unemployed, alcoholism, drug addiction, transportation, low edu. Level, literacy, decrease access to med. care, senior care, rehab)? @ -No Was there de-escalation of care discussed even if they declined (Discuss DNR or withdrawal of care, Hospice)? DNR status @ -No What co-morbidities impacted this encounter? (DM, HTN, Smoking, COPD, CAD, Cancer, CVA, ARF, Chemo, Hep., AIDS, mental health diagnosis, sleep apnea, morbid obesity)? @ -None Was patient admitted / discharged? Hospital course, mention meds given and route, prescriptions, significant lab abnormalities, going to OR and other pertinent info. @ -Based on the patient's presentation and physical exam, I'm concerned for infectious etiology for his sore throat. We will obtain viral swabs for strep throat swab as well as a chest x-ray. He was symptomatically treated with viscous lidocaine. Vital signs within acceptable limits. Afebrile. He was in agreement this plan. Chest x-ray reveals no obvious infiltrate or cardiopulmonary process. Viral swabs are negative for Covid, influenza, RSV. Patient is positive for strep pharyngitis. I updated the patient. He expressed understanding. Will be sent on amoxicillin , given a dose here in the department. He was in agreement this plan. Strict return precautions discussed. Discussed using hot or cold liquids to soothe his throat. He has [id number] analgesics as well. I will provide the patient with a prescription for amoxicillin. I instructed the patient to follow up with their PCP in the next 1-3 days. I explained that the patient should return to the emergency department if they experience any worsening symptoms. Strict return precautions were discussed with the patient. The patient expressed understanding of these instructions. I answered all questions that the patient had. The patient was discharged home in good condition with their prescriptions and follow up information. Undiagnosed new problem with uncertain prognosis? @ -No Drug Therapy requiring intensive monitoring for toxicity (Heparin, Nitro, Insulin, Cardizem)? @ -No Were any procedures done? @ -No Diagnosis/symptom? @ -Strep pharyngitis Acute, or Chronic, or Acute on Chronic? @ -Acute Uncomplicated (without systemic symptoms) or Complicated (systemic symptoms)? @ -Uncomplicated Side effects of treatment? @ -none Exacerbation, Progression, or Severe Exacerbation] @ -no Poses a threat to life or bodily function? @ -no - Lab Data Lab Results 08/09/22 08/09/22 Range/Units 10:26 10:26 Influenza Type A (PCR) Not Detected (Not Detectd) Influenza Type B (PCR) Not Detected (Not Detectd) RSV (PCR) Not Detected (Not Detectd) SARS-CoV-2 (PCR) Not Detected (Not Detectd) Group A Strep (PCR) DETECTED A (Not Detectd) Disposition Clinical Impression: Strep pharyngitis Disposition: HOME SELF-CARE Condition: Good Instructions (If sedation given, give patient instructions): Strep Throat (ED) Prescriptions: Amoxicillin 875 mg PO Q12HR 10 Days #20 tablet Is patient prescribed a controlled substance at d/c from ED?: No Referrals: Scott Morin MD [Primary Care Provider] - 1-2 days Time of Disposition: 11:39
--- NOTE | 2022-08-09 10:42 | XR ---
EXAMINATION TYPE: XR chest 2V DATE OF EXAM: 08/09/2022 COMPARISON: 07/19/2021 HISTORY: Shortness of breath TECHNIQUE: Frontal and lateral views of the chest are obtained. FINDINGS: Scattered senescent parenchymal changes noted. Hyperinflation compatible with COPD. No evidence for infiltrate. No evidence for atelectasis. Heart size is stable. Mediastinal structures are stable and grossly unremarkable. No evidence for hilar prominence. Degenerative changes dorsal spine. IMPRESSION: 1. No evidence for acute pulmonary disease.
[2022-08-09] MEDS ORDERED: AMOXICILLIN 875 MG TAB PO STA (11:44)
[2022-08-09 11:59] VITALS: BP 131/82; PULSE 78; RESP 16; TEMP 98.2
== END 2022-08-09 11:59 | disposition home or self-care (01) ==
LOC: EC 09:39
DX: J02.0 Streptococcal pharyngitis (principal); B95.0 Streptococcus, group A, as the cause of diseases classified elsewhere; I10 Essential (primary) hypertension; E78.5 Hyperlipidemia, unspecified; K21.9 Gastro-esophageal reflux disease without esophagitis; M19.90 Unspecified osteoarthritis, unspecified site; F41.9 Anxiety disorder, unspecified; F32.A Depression, unspecified; F17.200 Nicotine dependence, unspecified, uncomplicated; F12.90 Cannabis use, unspecified, uncomplicated; Z91.018 Allergy to other foods; Z79.1 Long term (current) use of non-steroidal anti-inflammatories (NSAID); Z79.899 Other long term (current) drug therapy; Z20.822 Contact with and (suspected) exposure to COVID-19
CPT/HCPCS: 71046; 87636; 87651; 99283

== ENCOUNTER → 2022-08-09 | Outpatient (CLI) | payer OTHER ==
[2022-08-09 15:33] LABS: Basophils # (A) 0.05 X 10*3/uL (0.00-0.10); Basophils % (A) 0.9 %; Eosinophils # (A) 0.08 X 10*3/uL (0.04-0.35); Eosinophils % (A) 1.4 %; HCT 48.3 % (39.6-50.0); HGB 15.4 g/dL (13.0-17.0); Immature Grans, Automated 0.3 %; Lymphocytes # (A) 1.52 X 10*3/uL (0.90-5.00); Lymphocytes % (A) 25.9 %; MCH 28.9 pg (27.0-32.0); MCHC 31.9 g/dL (32.0-37.0); MCV 90.8 fL (80.0-97.0); Monocytes # (A) 0.56 X 10*3/uL (0.20-1.00); Monocytes % (A) 9.6 %; NRBC Per 100 WBC 0 /100 WBCS (0.0-0.0); Neutrophils # (A) 3.63 X 10*3/uL (1.80-7.70); Neutrophils % (A) 61.9 %; Platelet Count 226 X 10*3/uL (140-440); RBC 5.32 X 10*6/uL (4.40-5.60); RDW 13.6 % (11.5-14.5); WBC 5.86 X 10*3/uL (4.50-10.00)
[2022-08-09 16:07] LABS: ALT 19 U/L (10-49); AST 17 U/L (14-35); African American GFR (CKD) 75.9 (60.0-200.0); Albumin 4.7 g/dL (3.8-4.9); Albumin/Globulin Ratio 1.83 (1.60-3.17); Alkaline Phosphatase 106 U/L (41-126); BUN/Creat Ratio 9.91 Ratio (12.00-20.00); Blood Urea Nitrogen 11.6 mg/dL (9.0-27.0); Calcium 10.8 mg/dL (8.7-10.3); Carbon Dioxide 26.8 mmol/L (20.0-27.5); Chloride 102 mmol/L (96-109); Creatine Kinase 97 U/L (35-257); Globulin 2.6 g/dL (1.6-3.3); Glucose 105 mg/dL (70-110); Magnesium 2.2 mg/dL (1.5-2.4); Non-African American GFR(CKD) 65.5 (60.0-200.0); Phosphorus 2.8 mg/dL (2.4-5.1); Potassium 4.5 mmol/L (3.5-5.5); Sodium 139 mmol/L (135-145); Total Protein 7.3 g/dL (6.2-8.2)
[2022-08-09 17:34] LABS: Chol/HDL Ratio 3.25 Ratio; LDL Cholesterol,Calculated 79.9 mg/dL (0.0-131.0)
[2022-08-09 17:36] LABS: Erythrocyte Sedimentation Rate 5 mm/Hr (0-20)
== END | disposition home or self-care (01) ==
LOC: LABWHC1 12:03
PROVIDERS: ATTEND Internal Medicine
DX: Z00.00 Encounter for general adult medical examination without abnormal findings (principal); D64.9 Anemia, unspecified; N40.0 Benign prostatic hyperplasia without lower urinary tract symptoms; I10 Essential (primary) hypertension; E87.8 Other disorders of electrolyte and fluid balance, not elsewhere classified; E78.5 Hyperlipidemia, unspecified; E55.9 Vitamin D deficiency, unspecified; M19.90 Unspecified osteoarthritis, unspecified site
CPT/HCPCS: 36415; 80053; 80061; 82306; 82550; 83735; 84100; 84153; 84443; 85025; 85652; 86140

== ENCOUNTER → 2022-11-22 | Outpatient (CLI) | payer OTHER ==
[2022-11-22 14:40] LABS: Ionized Calcium 5.4 mg/dL (4.5-5.3)
[2022-11-23 02:21] LABS: C Reactive Protein 0.5 mg/dL (0.00-0.80); Calcium 10.4 mg/dL (8.7-10.3); Prostate Specific Antigen 5.8 ng/mL (0.000-4.500)
== END | disposition home or self-care (01) ==
LOC: LABWHC1 13:31
PROVIDERS: ATTEND Internal Medicine
DX: R97.20 Elevated prostate specific antigen [PSA] (principal); N40.0 Benign prostatic hyperplasia without lower urinary tract symptoms; E83.52 Hypercalcemia
CPT/HCPCS: 36415; 82310; 82330; 82550; 84153; 85652; 86140

== ENCOUNTER 2022-12-26 10:00 | Emergency (ER) | payer OTHER ==
[2022-12-26 10:09] VITALS: BP 123/81; RESP 18
--- NOTE | 2022-12-26 11:24 | XR ---
EXAMINATION TYPE: XR chest 2V DATE OF EXAM: 12/26/2022 11:18 AM COMPARISON: Chest radiographs from 08/09/2022. TECHNIQUE: XR chest 2V Frontal and lateral views of the chest. CLINICAL INDICATION:Male, 62 years old with history of Chest Pain; FINDINGS: Lungs/Pleura: There is no evidence of pleural effusion, focal consolidation, or pneumothorax. Pulmonary vascularity: Unremarkable. Heart/mediastinum: Cardiomediastinal silhouette is unremarkable. Musculoskeletal: No acute osseous pathology. IMPRESSION: No acute cardiopulmonary disease/process.
--- NOTE | 2022-12-26 11:31 | ED ---
General Adult HPI - General Chief complaint: Recheck/Abnormal Lab/Rx Stated complaint: Found Black Mold in Home Time Seen by Provider: 12/26/22 10:29 Source: patient, RN notes reviewed Mode of arrival: ambulatory Limitations: no limitations - History of Present Illness Initial comments: 62-year-old male presents emergency Department with chief complaint of right- sided chest pain. Patient states it hurts to move. Patient states that the health department found mold in his house and that he need to have chest x-ray. Patient states he does have history of hypertension hyperlipidemia medications. No prior lung disease. Patient has no left-sided chest pain that hurts to press on his ribs and right side. No rashes. Denies any nausea and diarrhea constipation patient offers no other associated symptoms. - Related Data Home Medications Medication Instructions Recorded Confirmed Simvastatin [Zocor] 40 mg PO HS 11/05/19 12/22/20 QUEtiapine FUMARATE [SEROquel] 300 mg PO HS 11/11/19 12/22/20 Cholecalciferol (Vitamin D3) 125 mcg PO HS 12/21/19 12/22/20 [Vitamin D3] Diclofenac Sodium [Voltaren] 75 mg PO BID 12/21/19 12/22/20 amLODIPine [Norvasc] 10 mg PO HS 12/22/20 12/22/20 Previous Rx's Medication Instructions Recorded Metoprolol Tartrate [Lopressor] 50 mg PO BID #60 tab 10/10/19 Amoxicillin 875 mg PO Q12HR 10 Days #20 tablet 08/09/22 Allergies Allergy/AdvReac Type Severity Reaction Status Date / Time peanut Allergy Anaphylaxis Verified 12/26/22 10:09 shellfish derived Allergy Anaphylaxis Verified 12/26/22 10:09 Review of Systems ROS Statement: Those systems with pertinent positive or pertinent negative responses have been documented in the HPI. ROS Other: All systems not noted in ROS Statement are negative. Past Medical History Past Medical History: GERD/Reflux, Hyperlipidemia, Hypertension Additional Past Medical History / Comment(s): past hx colon polyps, back pain, history of hyperparathyroidism, hypertension, degenerative arthritis, hyperlipidemia, history of peptic ulcer disease from 1990 History of Any Multi-Drug Resistant Organisms: None Reported Past Surgical History: Bowel Resection, Heart Catheterization, Orthopedic Surgery Additional Past Surgical History / Comment(s): surg. for perforated ulcer, hip replac Past Anesthesia/Blood Transfusion Reactions: No Reported Reaction Past Psychological History: Anxiety, Depression Smoking Status: Current every day smoker Past Alcohol Use History: Occasional Past Drug Use History: Marijuana - Past Family History Mother Family Medical History: No Reported History Brother(s) Family Medical History: Cancer General Exam Limitations: no limitations General appearance: alert, in no apparent distress Head exam: Present: atraumatic, normocephalic, normal inspection Eye exam: Present: normal appearance, PERRL, EOMI. Absent: scleral icterus, conjunctival injection, periorbital swelling ENT exam: Present: normal exam, normal oropharynx, mucous membranes moist Neck exam: Present: normal inspection, full ROM. Absent: tenderness, meningismus, lymphadenopathy Respiratory exam: Present: normal lung sounds bilaterally, chest wall ten derness. Absent: respiratory distress, wheezes, rales, rhonchi, stridor, accessory muscle use Cardiovascular Exam: Present: regular rate, normal rhythm, normal heart sounds. Absent: systolic murmur, diastolic murmur, rubs, gallop, clicks GI/Abdominal exam: Present: soft, normal bowel sounds. Absent: distended, tenderness, guarding, rebound, rigid Course Vital Signs 12/26/22 10:04 Temperature 98.0 F Pulse Rate 75 Respiratory 18 Rate Blood Pressure 123/81 O2 Sat by Pulse 98 Oximetry EKG Findings - EKG Comments: EKG Findings:: EKG performed at 9 27 sinus rhythm with rate of 65 IA 147/85 QT/QTC 379/391 - EKG Results: EKG: interpreted by LEEANNE Medical Decision Making - Medical Decision Making Was pt. sent in by a medical professional or institution (, PA, SEWER [employer], urgent care, hospital, or skilled nursing...) When possible be specific @ -No Did you speak to anyone other than the patient for history (EMS, parent, family, police, friend...)? What history was obtained from this source @ -No Did you review nursing and triage notes (agree or disagree)? Why? @ -I reviewed and agree with nursing and triage notes Were old charts reviewed (outside hosp., previous admission, EMS record, old EKG, old radiological studies, urgent care reports/EKG's, skilled nursing records)? Report findings @ -No old charts were reviewed Differential Diagnosis (chest pain, altered mental status, abdominal pain women, abdominal pain men, vaginal bleeding, weakness, fever, dyspnea, syncope, headache, dizziness, GI bleed, back pain, seizure, CVA, palpatations, mental health, musculoskeletal)? @ -Differential Chest Pain: Stable Angina, Unstable Angina, STEMI, NSTEMI Aortic Dissection, Pneumothorax, Musculoskeletal, Esophageal Spasm GERD, Cholecystitis, Pancreatitis, Zoster, this is not meant to be an all-inclusive list. ble EKG interpreted by me (3pts min.). @ -As above X-rays interpreted by me (1pt min.). @ -Chest x-ray shows no acute cardio bony process CT interpreted by me (1pt min.). @ -None done U/S interpreted by me (1pt. min.). @ -None done What testing was considered but not performed or refused? (CT, X-rays, U/S, labs)? Why? @ -None What meds were considered but not given or refused? Why? @ -None Did you discuss the management of the patient with other professionals (professionals i.e. , PA, [employer], lab, RT, psych nurse, adoption social worker, farm crops teacher, teacher, tax compliance officer, case picker)? Give summary @ -No Was smoking cessation discussed for >3mins.? @ -No Was critical care preformed (if so, how long)? @ -No Were there social determinants of health that impacted care today? How? (Homelessness, low income, unemployed, alcoholism, drug addiction, transportation, low edu. Level, literacy, decrease access to med. care, long term, rehab)? @ -No Was there de-escalation of care discussed even if they declined (Discuss DNR or withdrawal of care, Hospice)? DNR status @ -No What co-morbidities impacted this encounter? (DM, HTN, Smoking, COPD, CAD, Cancer, CVA, ARF, Chemo, Hep., AIDS, mental health diagnosis, sleep apnea, morbid obesity)? @ -Hypertension, hyperlipidemia Was patient admitted / discharged? Hospital course, mention meds given and route, prescriptions, significant lab abnormalities, going to OR and other pertinent info. @ -Discharge patient presented from for atypical chest pain tip symptoms complaint right-sided chest pain after mold exposure patient's family members all had similar symptoms. Patient's workup is negative. Patient has complaint requests discharge. Patient updated on laboratory results including negative troponin, d-dimer. Patient return for any worsening changes symptoms.] Undiagnosed new problem with uncertain prognosis? @ -No Drug Therapy requiring intensive monitoring for toxicity (Heparin, Nitro, Insulin, Cardizem)? @ -No Were any procedures done? @ -No Diagnosis/symptom? @ -Mold exposure, atypical chest pain Acute, or Chronic, or Acute on Chronic? @ -Acute Uncomplicated (without systemic symptoms) or Complicated (systemic symptoms)? @ -Complicated Side effects of treatment? @ -No Exacerbation, Progression, or Severe Exacerbation? @ -No Poses a threat to life or bodily function? How? (Chest pain, [place], [place], pneumonia, PE, COPD, DKA, ARF, appy, cholecystitis, CVA, Diverticulitis, Homicidal, Suicidal, threat to staff... and all critical care pts) @ -No - Lab Data Result diagrams: 12/26/22 11:10 12/26/22 11:10 Lab Results 12/26/22 12/26/22 12/26/22 Range/Units 11:10 11:10 11:10 WBC 5.6 (3.8-10.6) k/uL RBC 5.05 (4.30-5.90) m/uL Hgb 15.2 (13.0-17.5) gm/dL Hct 46.1 (39.0-53.0) % MCV 91.3 (80.0-100.0) fL MCH 30.1 (25.0-35.0) pg MCHC 33.0 (31.0-37.0) g/dL RDW 13.4 (11.5-15.5) % Plt Count 205 (150-450) k/uL MPV 8.8 Neutrophils % 61 % Lymphocytes % 26 % Monocytes % 7 % Eosinophils % 3 % Basophils % 0 % Neutrophils # 3.4 (1.3-7.7) k/uL Lymphocytes # 1.5 (1.0-4.8) k/uL Monocytes # 0.4 (0-1.0) k/uL Eosinophils # 0.2 (0-0.7) k/uL Basophils # 0.0 (0-0.2) k/uL PT 10.3 (9.0-12.0) sec INR 1.0 (<1.2) APTT 22.6 (22.0-30.0) sec D-Dimer 0.28 (<0.60) mg/L FEU Sodium 139 (137-145) mmol/L Potassium 4.4 (3.5-5.1) mmol/L Chloride 106 (98-107) mmol/L Carbon Dioxide 24 (22-30) mmol/L Anion Gap 9 mmol/L BUN 13 (9-20) mg/dL Creatinine 0.90 (0.66-1.25) mg/dL Est GFR (CKD-EPI)AfAm >90 (>60 ml/min/1.73 sqM) Est GFR (CKD-EPI)NonAf 90 (>60 ml/min/1.73 sqM) Glucose 107 H (74-99) mg/dL Calcium 10.3 H (8.4-10.2) mg/dL Magnesium 2.0 (1.6-2.3) mg/dL Total Bilirubin 0.6 (0.2-1.3) mg/dL AST 29 (17-59) U/L ALT 28 (4-49) U/L Alkaline Phosphatase 77 (38-126) U/L Troponin I (0.000-0.034) ng/mL NT-Pro-B Natriuret Pep 78 pg/mL Total Protein 7.2 (6.3-8.2) g/dL Albumin 4.4 (3.5-5.0) g/dL 12/26/22 Range/Units 11:10 WBC (3.8-10.6) k/uL RBC (4.30-5.90) m/uL Hgb (13.0-17.5) gm/dL Hct (39.0-53.0) % MCV (80.0-100.0) fL MCH (25.0-35.0) pg MCHC (31.0-37.0) g/dL RDW (11.5-15.5) % Plt Count (150-450) k/uL MPV Neutrophils % % Lymphocytes % % Monocytes % % Eosinophils % % Basophils % % Neutrophils # (1.3-7.7) k/uL Lymphocytes # (1.0-4.8) k/uL Monocytes # (0-1.0) k/uL Eosinophils # (0-0.7) k/uL Basophils # (0-0.2) k/uL PT (9.0-12.0) sec INR (<1.2) APTT (22.0-30.0) sec D-Dimer (<0.60) mg/L FEU Sodium (137-145) mmol/L Potassium (3.5-5.1) mmol/L Chloride (98-107) mmol/L Carbon Dioxide (22-30) mmol/L Anion Gap mmol/L BUN (9-20) mg/dL Creatinine (0.66-1.25) mg/dL Est GFR (CKD-EPI)AfAm (>60 ml/min/1.73 sqM) Est GFR (CKD-EPI)NonAf (>60 ml/min/1.73 sqM) Glucose (74-99) mg/dL Calcium (8.4-10.2) mg/dL Magnesium (1.6-2.3) mg/dL Total Bilirubin (0.2-1.3) mg/dL AST (17-59) U/L ALT (4-49) U/L Alkaline Phosphatase (38-126) U/L Troponin I <0.012 (0.000-0.034) ng/mL NT-Pro-B Natriuret Pep pg/mL Total Protein (6.3-8.2) g/dL Albumin (3.5-5.0) g/dL Disposition Clinical Impression: Mold exposure, Atypical chest pain Disposition: HOME SELF-CARE Condition: Stable Additional Instructions: Please return to the Emergency Department if symptoms worsen or any other concerns. Is patient prescribed a controlled substance at d/c from ED?: No Referrals: Scott Morin MD [Primary Care Provider] - 1-2 days Time of Disposition: 12:18
[2022-12-26 11:37] LABS: Basophils % (A) 0 %; Eosinophils # (A) 0.2 k/uL (0-0.7); Eosinophils % (A) 3 %; HCT 46.1 % (39.0-53.0); HGB 15.2 gm/dL (13.0-17.5); Lymphocytes # (A) 1.5 k/uL (1.0-4.8); Lymphocytes % (A) 26 %; MCH 30.1 pg (25.0-35.0); MCV 91.3 fL (80.0-100.0); Mean Platelet Volume 8.8; Monocytes # (A) 0.4 k/uL (0-1.0); Monocytes % (A) 7 %; Neutrophils # (A) 3.4 k/uL (1.3-7.7); Neutrophils % (A) 61 %; Platelet Count 205 k/uL (150-450); RBC 5.05 m/uL (4.30-5.90); RDW 13.4 % (11.5-15.5); WBC 5.6 k/uL (3.8-10.6)
[2022-12-26 11:53] LABS: Partial Thromboplastin Time 22.6 sec (22.0-30.0); Prothrombin Time 10.3 sec (9.0-12.0)
[2022-12-26 11:56] LABS: ALT 28 U/L (4-49); AST 29 U/L (17-59); African American GFR (CKD) >90 (>60 ml/min/1.73 sqM); Albumin 4.4 g/dL (3.5-5.0); Alkaline Phosphatase 77 U/L (38-126); Anion Gap 9 mmol/L; Blood Urea Nitrogen 13 mg/dL (9-20); Calcium 10.3 mg/dL (8.4-10.2); Carbon Dioxide 24 mmol/L (22-30); Chloride 106 mmol/L (98-107); Glucose 107 mg/dL (74-99); Non-African American GFR(CKD) 90 (>60 ml/min/1.73 sqM); Potassium 4.4 mmol/L (3.5-5.1); Sodium 139 mmol/L (137-145); Total Bilirubin 0.6 mg/dL (0.2-1.3); Total Protein 7.2 g/dL (6.3-8.2)
[2022-12-26 12:04] LABS: NT-Pro-B-Type Natriuretic Pept 78 pg/mL
[2022-12-26 12:33] VITALS: PULSE 71; TEMP 98.1
== END 2022-12-26 12:25 | disposition home or self-care (01) ==
LOC: EC 10:00
DX: R07.89 Other chest pain (principal); Z77.120 Contact with and (suspected) exposure to mold (toxic); I10 Essential (primary) hypertension; E78.5 Hyperlipidemia, unspecified; F41.9 Anxiety disorder, unspecified; F32.A Depression, unspecified; F17.200 Nicotine dependence, unspecified, uncomplicated; F12.90 Cannabis use, unspecified, uncomplicated; Z79.899 Other long term (current) drug therapy; Z91.010 Allergy to peanuts; Z91.013 Allergy to seafood
CPT/HCPCS: 36415; 71046; 80053; 83735; 83880; 84484; 85025; 85379; 85610; 85730; 93005; 99284

== ENCOUNTER → 2022-12-27 | Outpatient (CLI) | payer OTHER ==
--- NOTE | 2022-12-27 16:40 | US ---
EXAMINATION TYPE: US kidneys/renal and bladder DATE OF EXAM: 12/27/2022 COMPARISON: NONE CLINICAL INDICATION: Male, 62 years old with history of N13.9 OBSTRUCTIVE AND REFLUX UROPATHY, UNSPEC IFIED; bilateral flank pain ongoing EXAM MEASUREMENTS: Right Kidney: 11.5 x 5.0 x 5.5 cm Left Kidney: 11.6 x 4.9 x 6.3 cm Right Kidney: No hydronephrosis or masses seen Left Kidney: No hydronephrosis or masses seen Bladder: wnl There is no evidence for hydronephrosis at this point in time. No nephrolithiasis is seen. No cheyenne s are identified. The urinary bladder is anechoic. Bilateral ureteral jets are seen. IMPRESSION: Examination is within normal limits.
== END | disposition home or self-care (01) ==
LOC: RADUSWWP 15:40
PROVIDERS: ATTEND Internal Medicine
DX: N13.9 Obstructive and reflux uropathy, unspecified (principal)
CPT/HCPCS: 76770

== ENCOUNTER → 2023-03-03 | Outpatient (CLI) | payer OTHER ==
--- NOTE | 2023-03-03 11:05 | XR ---
EXAMINATION TYPE: XR Hip Complete RT DATE OF EXAM: 03/03/2023 COMPARISON: 08/07/2015 HISTORY: Osteoporosis, right hip pain TECHNIQUE: Right hip is examined in AP and frog-leg views FINDINGS: Femoral head articulates with the acetabulum. Joint space appears preserved. There may be s ome subchondral cyst formation in the femoral head. No acute fractures evident. IMPRESSION: 1. Mild progressive degenerative changes right hip
--- NOTE | 2023-03-03 11:06 | XR ---
EXAMINATION TYPE: XR sacroiliac joint comp BILAT DATE OF EXAM: 03/03/2023 COMPARISON: 05/25/2020 HISTORY: Pain right hip TECHNIQUE: Sacroiliac joints examined in 3 projections FINDINGS: Sacroiliac joints are normal. Symphysis pubis is normal. Degenerative disc changes present L5-S1 No acute fractures are evident. Degenerative changes are within the sacroiliac joints. IMPRESSION: 1. Degenerative changes bilateral sacroiliac joints.
== END | disposition home or self-care (01) ==
LOC: RADXRMAIN 09:51
PROVIDERS: ATTEND Internal Medicine
DX: M81.0 Age-related osteoporosis without current pathological fracture (principal); M16.11 Unilateral primary osteoarthritis, right hip
CPT/HCPCS: 72202; 73502

== ENCOUNTER → 2023-10-05 | Outpatient (CLI) | payer OTHER ==
[2023-10-05 10:55] LABS: INR 1.1 (<1.2); Partial Thromboplastin Time 24.6 sec (22.0-30.0); Prothrombin Time 11.4 sec (10.0-12.5)
[2023-10-05 15:58] LABS: HCT 47.3 % (39.6-50.0); HGB 15.5 g/dL (13.0-17.0); MCH 29.9 pg (27.0-32.0); MCHC 32.8 g/dL (32.0-37.0); MCV 91.3 FL (80.0-97.0); Mean Platelet Volume 11.3 FL (9.5-12.2); NRBC Per 100 WBC 0 X 10*3/uL (0.00-0.01); Platelet Count 216 X 10*3/uL (140-440); RBC 5.18 X 10*6/uL (4.40-5.60); RDW 13.1 % (11.5-14.5); WBC 4.56 X 10*3/uL (4.50-10.00)
[2023-10-05 16:16] LABS: ALT 28 U/L (10-49); AST 22 U/L (14-35); Albumin 4.4 g/dL (3.8-4.9); Albumin/Globulin Ratio 1.83 Ratio (1.60-3.17); Alkaline Phosphatase 97 U/L (41-126); BUN/Creat Ratio 17.73 Ratio (12.00-20.00); Blood Urea Nitrogen 19.5 mg/dL (9.0-27.0); Calcium 10.5 mg/dL (8.7-10.3); Carbon Dioxide 22.2 mmol/L (21.6-31.8); Chloride 105 mmol/L (96-109); Globulin 2.4 g/dL (1.6-3.3); Glucose 125 mg/dL (70-110); Potassium 4.2 mmol/L (3.5-5.5); Sodium 142 mmol/L (135-145); Total Bilirubin 0.4 mg/dL (0.3-1.2); Total Protein 6.8 g/dL (6.2-8.2)
== END | disposition home or self-care (01) ==
LOC: LABPAT 09:31
PROVIDERS: ATTEND Orthopaedic Surgery
DX: Z01.818 Encounter for other preprocedural examination (principal); M16.11 Unilateral primary osteoarthritis, right hip; R94.31 Abnormal electrocardiogram [ECG] [EKG]; Z22.322 Carrier or suspected carrier of Methicillin resistant Staphylococcus aureus
CPT/HCPCS: 36415; 80053; 85027; 85610; 85730; 86850; 86900; 86901; 87070; 93005

== ENCOUNTER 2023-10-17 09:38 | Day surgery (SDC) | payer MEDICARE, OTHER ==
[2023-10-16 09:00] VITALS: BMI 31.1
[~2023-10-17 09:38] MED LIST changes: +HYDROmorphone 0.5 MG/0.5 ML SYRINGE IVP PRN; -LACTATED RINGERS 1,000 ML IV SCH; -LIDOCAINE 1% (10MG/ML) FOR IV START INTRADERMA PRN; +TRANEXAMIC 1,000 MG/100ML-NACL 1,000 MG in SALINE 1 100ML.BAG IVPB PRN
[2023-10-17] MEDS: IV FLUID CONTINUATION 1,000 ML IV ONE (09:55)
[2023-10-17] MEDS: GABAPENTIN 300 MG CAP PO PRN (10:19)
[2023-10-17] MEDS: ACETAMINOPHEN TAB 500 MG TAB PO PRN (10:19)
[2023-10-17] MEDS: ONDANSETRON 4 MG/2 ML VIAL IVP ONE (10:19)
[2023-10-17] MEDS: LACTATED RINGERS 1,000 ML IV SCH (10:19)
[2023-10-17] MEDS: DEXAMETHASONE SOD PHOSPHATE 4 MG/ML 1 ML VIAL IV ONE (10:19)
[2023-10-17] MEDS: MELOXICAM 7.5 MG TAB PO PRN (10:20)
[2023-10-17] MEDS: fentaNYL (PF) 50 MCG/1 ML VIAL IVP ONE (10:42)
[2023-10-17] MEDS: MIDAZOLAM 2 MG/2 ML VIAL IVP ONE (10:42)
[2023-10-17] MEDS ORDERED: PROPOFOL 10 MG/ML 20 ML VIAL IV ONE (11:34)
[2023-10-17] MEDS ORDERED: LIDOCAINE 1% INJ 10MG/ML (20 ML MDV) ONE (11:34)
[2023-10-17] MEDS ORDERED: TRANEXAMIC 1,000 MG/100ML-NACL PREMIX BAG ONE (11:34)
[2023-10-17] MEDS ORDERED: ROPIVACAINE 5 MG/ML 30 ML VIAL ONE (11:34)
[2023-10-17] MEDS ORDERED: MIDAZOLAM 2 MG/2 ML VIAL ONE (11:34)
[2023-10-17] MEDS ORDERED: PHENYLEPHRINE-0.9% NACL SYG 1,000 MCG/10 ML SYRINGE ONE (11:34)
[2023-10-17] MEDS ORDERED: ePHEDrine 50 MG/ML 1 ML VIAL ONE (11:34)
[2023-10-17] MEDS ORDERED: fentaNYL (PF) 50 MCG/ML 2 ML AMP ONE (11:34)
[2023-10-17] MEDS: ceFAZolin 1,000 MG in SODIUM CHLORIDE 0.9% 1,000 ML IRRIGATION ONE (11:37)
--- NOTE | 2023-10-17 11:39 | P.ANPRN ---
Procedure Note - Anesthesia - Nerve Block Performed Right Romie Single Time Out Performed: Yes (1041) Date of Procedure: 10/17/23 Procedure Start Time: 10:42 Procedure Stop Time: 10:47 Location of Patient: PreOp Indication: Acute Post-Operative Pain, Requested by Surgeon Specifically requested for management of pain by DrShekhar: Cole Nance Sedation Type: Sedate with meaningful contact maintained Preparation: Sterile Prep Position: Supine Catheter: None Needle Types: Pajunk Needle Gauge: 21 Ultrasound used to visualize needle placement: Yes Ultrasound used to observe medication spread: Yes Injectate: 0.5% Ropivacaine (see comment for volume) (30cc) Blood Aspirated: No Pain Paresthesia on Injection Noted: No Resistance on Injection: Normal Image Stored and Saved: Yes Events: Uneventful and Well Tolerated
[2023-10-17] MEDS: ROPIVACAINE 5 MG/ML 30 ML VIAL MISCELLANE ONE ×2 (11:42→12:45)
[2023-10-17] MEDS: LACTATED RINGERS 1,000 ML IV ONE (12:16)
--- NOTE | 2023-10-17 12:54 | P.OP ---
Date of Procedure: 10/17/23 Preoperative Diagnosis: Severe osteoarthritis right hip Postoperative Diagnosis: Severe osteoarthritis right hip Procedure(s) Performed: Right total hip arthroplasty with a direct anterior approach Implants: [employer] Polarstem standard size 5 with a collar [employer] R3, 3 hole hemispherical acetabular shell, 52 mm [employer] Reflection 6.5 mm cancellus screw, 20 mm 2 [employer] R3, XLPE 20 acetabular liner [employer] Oxinium femoral head 36 mm, +0 All components were press-fit. The articulation is Oxinium on polyethylene. Anesthesia: spinal Surgeon: Cole Nance Line Walker #1: Rula Johnson Estimated Blood Loss (ml): 250 Pathology: none sent Condition: stable Disposition: PACU Indications for Procedure: After failure of conservative treatment we discussed the surgical and nonsu rgical treatment options at length. Patient wishes to proceed with a total hip arthroplasty with a direct anterior approach. Complications specific to this procedure were discussed at length, including but not limited to infection, leg length discrepancy, dislocation, nerve injury, and fracture. Covid-19 was also discussed at length with the patient, and they are aware of the current policies and procedures. The patient was given the option of delaying surgery, but they elect to proceed knowing these risks. Patient is aware of all these complications and informed consent was obtained Operative Findings: The operative findings are consistent with severe osteoarthritis of the right hip Description of Procedure: The patient was seen and evaluated in the preoperative area and the consent was reviewed. The operative site was marked with a skin marker. The patient verified the procedure and operative site. A EVELIA block was placed by anesthesia in the preoperative area. The patient was then brought to the operating room and given preoperative antibiotics intravenously. 1 g of Tranexamic acid was also given intravenously. A spinal anesthetic was administered by the anesthesia department. The patient was then placed on the [place]ass table with the bony prominences well-padded. The hip area was then prepped with a ChloraPrep solution and draped in the usual sterile fashion. A universal timeout was then performed, which confirmed the patient's name, surgical site, ALLERGIES, and procedure being performed on the consent. Next the incision site was located at 1 cm distal and 4 cm lateral to the anterior superior iliac spine. The skin and subcutaneous tissues were sharply incised. Incision was carefully dissected down to the fascia overlying the tensor fascia david muscle. This fascia was then incised in line with the muscle fibers. Care was taken to stay laterally in order to avoid injuring the lateral femoral cutaneous nerve. Next, using blunt finger dissection, the tensor fascia david muscle was dissected off its investing fascia. The muscle was then carefully retracted laterally with a cobra retractor over the lateral neck of the femur. Next, the circumflex vessels were identified and cauterized using the Aquamantis device. The anterior hip capsule was then exposed. The capsule was then opened and an inverted T fashion. The retractors were then placed intracapsularly. The retractors were maintained intracapsular throughout the procedure. The proximal femur was then visualized. Fluoroscopic x-rays were then taken in order to evaluate the preoperative leg lengths. A small amount of traction was placed on the leg. The femoral neck was then osteotomized at the appropriate level above the lesser trochanter. A small wedge of bone was then removed from the remaining femoral head. Next, using a corkscrew the femoral head was removed from the acetabulum. On gross visual inspection, the femoral head had complete loss of articular cartilage and multiple periarticular osteophytes. The femoral head was then measured. Attention was then turned to the acetabulum. The acetabulum was exposed and any remaining labrum was excised. Sequential reaming of the acetabulum was performed using fluoroscopic guidance until there was a good bed of bleeding cancellus bone. When the appropriate size was reached, a trial was then placed. The position and fit of the trial was checked with fluoroscopy. The trial was then removed. Then, using fluoroscopic guidance, the final implant was impacted at 20 of anteversion and 40 of abduction, and fully seated in the acetabulum. 2 screws were then placed in the acetabulum. Again fluoroscopy was used to check position of the screws. Next, the liner was then impacted, with a 20 elevated liner located in the anterior superior quadrant. Component locking was confirmed. Attention was then directed to the femur. With the aid of the Embarrass table, the femur was externally rotated to approximately 130, extended, and adducted under the opposite leg. A side hook was then placed under the proximal femur, and the side hook elevator was used to elevate the proximal femur while releasing the capsule. Retractors were then placed. A capsular release was performed, as well as a release of the conjoined tendon, which afforded excellent v isualization of the proximal femur. Next, a box osteotome was used to lateralize the proximal femur. A hand shoe cutter was then used to locate the femoral canal. Sequential broaching was then performed with appropriate size which afforded excellent fixation in the proximal femur. A trial was then placed with appropriate head and neck, and the hip was gently reduced with the aid of the Embarrass table. Fluoroscopy was then used to check position of the components, as well as to evaluate the leg lengths and offset. The leg lengths and offset were measured as closely as possible to ensure stability of the hip. The hip was then gently dislocated and the trials were then removed. Final implants were then impacted and the hip was again reduced. Final fluoroscopic x-rays confirmed that the components were in anatomic position. The leg lengths and offset were measured and were found to coincide with the trial measurements. The hip was also taken through range of motion, and found to be stable. The hip was then copiously irrigated with antibiotic solution with pulsatile lavage. The hip was then irrigated with Irrisept solution. The soft tissues were then injected with a ropivacaine solution. A second dose of 1 g of Tranexamic acid was also given intravenously. The fascia was then closed with 2-0 strata fix suture. The subcutaneous tissue was closed with 3-0 Vicryl. The subcuticular tissue was closed with 3-0 strata fix suture. The skin was then closed with Exofin skin glue. After the glue and dried, and Optifoam silver impregnated dressing was applied. The patient was t hen transferred to the recovery room in stable condition. The community program assistant ADRIEL Burnette was required due to the complexity of surgery, and the need for skilled surgical orderly for positioning, draping, exposure, retraction, and closure of the wound.
[2023-10-17] MEDS ORDERED: MAGNESIUM HYDROXIDE 2,400 MG/30 ML CUP PO PRN (13:22)
[2023-10-17] MEDS ORDERED: HYDROmorphone 0.5 MG/0.5 ML SYRINGE IVP PRN ×2 (13:22)
[2023-10-17] MEDS ORDERED: NALOXONE 0.4 MG/ML 1 ML VIAL IV PRN (13:22)
--- NOTE | 2023-10-17 13:24 | XR ---
Fluoroscopy INDICATION: Pain, hip replacement FINDINGS: Fluoroscopy time: 32.6 seconds. Total dose area product (DAP) in uGy*m?, mGy*cm? (or similar): 1.7560 Images obtained: 5. IMPRESSION: 1. Documentation of fluoroscopy.
[2023-10-17] MEDS ORDERED: HYDROcodone/APAP 7.5-325MG 1 EACH TAB PO PRN (13:25)
--- NOTE | 2023-10-17 13:55 | FL ---
EXAMINATION TYPE: FL guidance operating room, XR Hip Limited RT Intraoperative/procedural fluoroscopi c services were provided. Total fluoroscopy time is 32.6 seconds with a total of 3 submitted images t o PACS. Please see the operative/procedural note for further details. DAP: 1.7560 Gycm2
[2023-10-17] MEDS: HYDROmorphone 0.5 MG/0.5 ML SYRINGE IVP PRN (15:50)
[2023-10-17] MEDS: HYDROcodone/APAP 7.5-325MG 1 EACH TAB PO PRN (16:34)
[2023-10-17] MEDS: SODIUM CHLORIDE 0.9% 1,000 ML IV SCH (19:50)
[2023-10-17] MEDS: ASPIRIN 325 MG TAB PO SCH (19:50)
[2023-10-17] MEDS: SENNOSIDES-DOCUSATE SODIUM 1 EACH TAB PO SCH (19:50)
[2023-10-17] MEDS: ONDANSETRON 4 MG/2 ML VIAL IVP PRN (21:29)
[2023-10-17] MEDS: ATORVASTATIN 10 MG TAB PO SCH (23:50)
[2023-10-17] MEDS: QUEtiapine 100 MG TAB PO SCH (23:56)
[2023-10-18 07:22] VITALS: BP 126/82; PULSE 83; RESP 18; TEMP 97.1
--- NOTE | 2023-10-18 07:30 | P.DS ---
Providers Expected date of discharge: 10/18/23 Attending physician: Cole Nance Consults: 10/17/23 13:22 Consult Physician Routine Consulting Provider: Scott Morin Consult Reason/Comments: medical management Do you want consulting provider notified?: Yes Primary care physician: Scott Morin - Discharge Diagnosis(es) (1) Primary localized osteoarthritis of right hip Current Visit: Yes Status: Acute (2) Status post total hip replacement, right Current Visit: Yes Status: Acute Hospital Course: This is a 63-year-old male with known history of degenerative arthritis of the right hip. The patient presents for evaluation. After discussion and cons ideration patient elects to proceed with total hip arthroplasty with direct anterior approach. The patient is seen preoperatively by primary care physician and cleared for surgery. Patient is admitted to [facility] on 10/17/2023 for total hip arthroplasty with direct anterior approach. The procedure is performed without complication or sequelae. The patient is doing well postoperatively. Labs and vital signs are stable on day of discharge. On day of discharge patient's hip incision is healing well. There is minimal erythema. There is no drainage noted at this time. There is minimal soft tissue swelling to the hip and thigh. Patient has full foot and ankle motion without difficulty or pain. Neurovascular status to the lower extremity is intact. Patient is discharged to home in good condition. Please see med rec for accurate list of home medications. Plan - Discharge Summary Discharge Rx Participant: Yes New Discharge Prescriptions: New Aspirin 325 mg PO BID #60 tab HYDROcodone/APAP 7.5-325MG [[place] 7.5-325] 1 - 2 tab PO Q6H PRN #32 tab PRN Reason: Pain Sennosides [Senokot] 2 tab PO DAILY PRN #60 tablet PRN Reason: Constipation No Action QUEtiapine FUMARATE [SEROquel] 300 mg PO HS amLODIPine [Norvasc] 10 mg PO BID Simvastatin [Zocor] 10 mg PO HS Metoprolol Tartrate 25 mg PO BID Omeprazole 40 mg PO DAILY Diclofenac Sodium 50 mg PO BID Discharge Medication List QUEtiapine FUMARATE [SEROquel] 300 mg PO HS 11/11/19 [History] amLODIPine [Norvasc] 10 mg PO BID 12/22/20 [History] Diclofenac Sodium 50 mg PO BID 10/16/23 [History] Metoprolol Tartrate 25 mg PO BID 10/16/23 [History] Omeprazole 40 mg PO DAILY 10/16/23 [History] Simvastatin [Zocor] 10 mg PO HS 10/16/23 [History] Aspirin 325 mg PO BID #60 tab 10/17/23 [Rx] HYDROcodone/APAP 7.5-325MG [[place] 7.5-325] 1 - 2 tab PO Q6H PRN #32 tab 10/17/23 [Rx] Sennosides [Senokot] 2 tab PO DAILY PRN #60 tablet 10/17/23 [Rx] Follow up Appointment(s)/Referral(s): Cole Nance DO [Doctor of Osteopathic Medicine] - 2 Weeks Activity/Diet/Wound Care/Special Instructions: Weightbearing as tolerated with walker. Leave dressing intact. Dressing may be removed by home care nurse or by patient in 7 days. Then change dressing twice daily until follow up. May shower with initial dressing intact and after removal. If dressing become saturated, please remove. Please take aspirin 325mg twice daily for 30 days to prevent blood clots. Recommend use of compression stockings daily until follow up to help prevent swelling and blood clots. May remove at night before sleeping. Please follow-up with [facility] in 2 weeks and call with any questions or concerns, . Discharge Disposition: HOME WITH HOME HEALTH SERVICES
[2023-10-18] MEDS: METOPROLOL TARTRATE 25 MG TAB PO SCH (07:36)
[2023-10-18] MEDS: amLODIPine 10 MG TAB PO SCH (07:36)
[2023-10-18 08:42] LABS: Basophils # (A) 0.01 X 10*3/uL (0.00-0.10); Basophils % (A) 0.1 %; Eosinophils # (A) 0.01 X 10*3/uL (0.04-0.35); Eosinophils % (A) 0.1 %; HCT 38.1 % (39.6-50.0); HGB 12.7 g/dL (13.0-17.0); Lymphocytes # (A) 1.01 X 10*3/uL (0.90-5.00); MCHC 33.3 g/dL (32.0-37.0); MCV 90.1 FL (80.0-97.0); Monocytes # (A) 0.82 X 10*3/uL (0.20-1.00); Monocytes % (A) 10.6 %; NRBC Per 100 WBC 0 X 10*3/uL (0.00-0.01); Neutrophils # (A) 5.89 X 10*3/uL (1.80-7.70); Neutrophils % (A) 75.8 %; Platelet Count 196 X 10*3/uL (140-440); RBC 4.23 X 10*6/uL (4.40-5.60); RDW 12.6 % (11.5-14.5); WBC 7.77 X 10*3/uL (4.50-10.00)
--- NOTE | 2023-10-18 12:56 | P.CON ---
Consult Note - . Consult date: 10/18/23 (Postoperative medical consult requested by Dr. Cole Awan orthopedic surgeon)
--- NOTE | 2023-10-18 13:08 | P.CON ---
Consult Note - . Consult date: 10/18/23 (Postoperative medical consult) Assessment/Plan:: Dictation for postoperative medical consult Requested by Dr. Cole osullivan orthopedic surgeon Date of service: 10/18/2023 Patient underwent elective right hip total arthroplasty on 10/16/2020. I was called at night on 16 October for follow-up management consultation postoperative as well as resuming his home medication which was ordered. Patient seen and evaluated today [id number]. Patient is feeling good and planned to go home by the orthopedic surgeons and his PA Natasha Williamson. On exam patient denied any pain and he was happy with the surgery of the right hip arthroplasty anterior approach. Patient had in the past left hip arthroplasty as well with the anterior approach. Vital sign: Temperature 97.1 F oral Pulse rate 83/min to 74 regular sinus Respiratory rate 18/min nonlabored and his oxygen saturation 98% Blood pressure 126/82 mmHg stable on his home medication. On the physical exam patient is conscious alert oriented. HEENT head was normocephalic atraumatic and pupil was equal reactive conjunctiva was pink sclera was nonicteric with normal extraocular muscle movement Neck was supple no JVD no thyromegaly no lymphadenopathy trachea midline Chest was normal breath sound bilaterally no wheezes no rhonchi's with the history of COPD secondary to smoking and advised as well to stop smoking Heart regular sinus rhythm Abdomen soft positive bowel sound with history of previous surgery Extremities: He had yesterday the elective right total hip anterior approach total hip arthroplasty. He has multiple positive pulses bilateral on the dorsalis pedis posterior tibial and popliteal and femoral bilateral No edema. Psychiatry no agitation normal mood Neurologically no lateralizing sign moving 4 extremities. Assessment: Hypertension controlled Hyperlipidemia on medication stable History of COPD stable without any exacerbation. History of reaction to Dilaudid with the nausea and vomiting last night which was discontinued by the orthopedic treatment. Anticoagulation and pain medication. Orthopedic surgeon. Plan continue current home medication and follow-up in the office in 5 to 7 days.
== END 2023-10-18 13:01 | disposition home health service (06) ==
LOC: OR 09:38 → EDSTATUS 11:20 → 4SSUR 13:06 → OR 10-18 13:01
PROVIDERS: ATTEND Orthopaedic Surgery
DX: M16.11 Unilateral primary osteoarthritis, right hip (principal); E78.5 Hyperlipidemia, unspecified; G89.18 Other acute postprocedural pain; I10 Essential (primary) hypertension; J44.9 Chronic obstructive pulmonary disease, unspecified; F17.200 Nicotine dependence, unspecified, uncomplicated; Z79.82 Long term (current) use of aspirin; Z79.899 Other long term (current) drug therapy
CPT/HCPCS: 97161; 97166; 64447; 85025; 73501; 27130; C1776; J2250; J1100; J0690 ×3; J2405; J2795; J1170; J3010

== ENCOUNTER → 2024-07-17 | Outpatient (CLI) | payer MEDICARE ==
--- NOTE | 2024-07-17 10:00 | XR ---
EXAMINATION TYPE: XR abdomen 2V DATE OF EXAM: 07/17/2024 9:52 AM COMPARISON: None. CLINICAL INDICATION: Male, 64 years old with history of FOREIGN BODY, TECHNIQUE: Single view of the abdomen. FINDINGS: Small bowel demonstrates no evidence for dilatation or air fluid levels. Gas and fecal material is seen in non-distended colon. No convincing evidence for pneumoperitoneum. No unusual calcifications. The lung bases are clear. No radiopaque density overlying the abdomen. Overlying the ischium bilatera lly there are rounded radiopaque densities likely from the patient's pants. Correlate clinically. The osseous structures are intact. IMPRESSION: 1. No radiopaque density overlying the abdomen. Overlying the ischium bilaterally there are rounded radiopaque densities likely from the patient's pants. Correlate clinically. [facility], , 07/17/2024 9:58 AM
[2024-07-17 16:49] LABS: Appearance,Urine Clear (Clear); Bilirubin,Urine Negative (Negative); Blood,Urine Negative (Negative); Color,Urine Yellow (Yellow); Ketones,Urine Negative (Negative); Nitrite,Urine Negative (Negative); PH, Urine 6.5; Specific Gravity,Urine 1.023 (1.001-1.030); Urobilinogen,Urine 0.2 E.U./DL
[2024-07-17 16:57] LABS: Bacteria,Urine None Seen (None Seen)
== END | disposition home or self-care (01) ==
LOC: LABWHC1 09:18
PROVIDERS: ATTEND Internal Medicine
DX: N39.0 Urinary tract infection, site not specified (principal)
CPT/HCPCS: 36415; 74019; 81001; 84153; 87086

== ENCOUNTER → 2024-09-09 | Outpatient (CLI) | payer MEDICARE ==
--- NOTE | 2024-09-09 11:34 | MR ---
EXAMINATION TYPE: MR Prostate wo/w con DATE OF EXAM: 09/09/2024 9:08 AM COMPARISON: None. CLINICAL INDICATION: Male, 64 years old with history of R97.20 ELEVATED PROSTATE SPECIFIC ANTIGEN [PS A]; Elevated PSA. TECHNIQUE: Multi-planar, multi-sequence imaging of the pelvis is performed prior to and following the uncomplicated administration of bolus intravenous gadolinium. IV Contrast: 9 mL Gadobutrol Interpretive Criteria: PI-RADS v2.1 SERUM PSA: 07-17-24 = 10.20 11-22-22 = 5.30 SURGICAL PATHOLOGY: No data available. FINDINGS: Prostatic dimensions: 4.5 x 4.8 x 3.7 cm. "Bullet" Volume:52.31 (PSA density=0.19 ng/mL/mL) CENTRAL GLAND (Central and Transition Zones/CZ+TZ): Multiple bilateral, heterogenous appearing hypertrophic stromal nodules, without suspicious lesion. M edian lobe hypertrophy with protrusion into the base of the bladder. (PI-RADS 2) PERIPHERAL ZONE (PZ): Bilateral linear, indistinct wedgelike areas of low ADC, and low T2 signal, No evidence of masslike a bnormality, or localized perfusional hypervascularity, to further suggest a focus of clinically signi ficant prostate cancer. (PI-RADS 2) SEMINAL VESICLES (SV): Symmetric and unremarkable. PERIPROSTATIC TISSUES: Unremarkable. LYMPH NODES: No enlarged pelvic lymph node. REMAINING PELVIS: Trabeculated bladder wall likely secondary to chronic bladder outlet obstruction. No abnormal free or organized intrapelvic fluid collection. No pathologic bowel dilation or mural thickening. No hernia visualized OSSEOUS STRUCTURES: Bilateral hip arthroplasties changes with magnetic susceptibility artifact. No suspicious osseous abnormality. IMPRESSION: 1. No specific features for high-risk prostate cancer. Maximum PI-RADS score: 2. 2. Moderate BPH, estimated gland volume 52.31 (PSA density=0.19 ng/mL/mL) 3. No suspicious osseous lesion. No lymphadenopathy. No evidence of prostate adenocarcinoma involving the periprostatic tissues. [facility], , 09/09/2024 11:32 AM
== END | disposition home or self-care (01) ==
LOC: RADMRIMAIN 08:01
PROVIDERS: ATTEND Urology
DX: N40.0 Benign prostatic hyperplasia without lower urinary tract symptoms (principal); R97.20 Elevated prostate specific antigen [PSA]; F31.9 Bipolar disorder, unspecified; F20.9 Schizophrenia, unspecified; I10 Essential (primary) hypertension; E78.5 Hyperlipidemia, unspecified; F41.9 Anxiety disorder, unspecified
CPT/HCPCS: 72197; A9585